=== PATIENT | female | born 1960 | race Caucasian/White ===

== ENCOUNTER 2018-09-18 21:27 | Emergency (ER) | payer BC ==
--- NOTE | 2018-09-18 22:09 | EDPHYS ---
Physician Documentation [facility] Name: Alyssa Britton Age: 58 yrs Sex: Female : 1960 Arrival Date: 09/18/2018 Time: 21:32 Bed 26 Private MD: Rozina Awad ED Physician Arben Velasquez HPI: 09/18 22:09 This 58 yrs old Female presents to ER via Ambulatory with complaints of Skin snw Sore(s). 22:09 Onset: The symptoms/episode began/occurred suddenly, 3 day(s) ago, and became worse and snw became persistent. Associated signs and symptoms: The patient has no apparent associated signs or symptoms. The patient has experienced similar episodes in the past, pt has long history of MRSA, is frightened about recurrence. Pt states she has been observing a scabbed area to left hand x 3 days, the area has become more tender, more erythematous.. It is unknown whether or not the patient has recently seen a physician. Pt takes doxycycline prophylaxis daily. Historical: - Allergies: 21:56 codeine; jd3 - Home Meds: 21:56 Doxycycline Oral [Active]; Cyclobenzaprine Oral [Active]; clopidogrel oral oral jd3 [Active]; Amitriptyline Oral [Active]; Simvastatin Oral [Active]; losartan oral oral [Active]; - PMHx: 21:56 High Cholesterol; jd3 - PSHx: 21:56 Hysterectomy; breast implants; bifemoral bipass; left leg; jd3 - Immunization history:: Adult Immunizations up to date. - Social history:: Smoking status: Patient uses tobacco products, smokes one-half pack cigarettes per day. - Ebola Screening: : Patient negative for fever greater than or equal to 101.5 degrees Fahrenheit, and additional compatible Ebola Virus Disease symptoms. ROS: 22:09 Constitutional: Negative for fever, chills, and weight loss, Eyes: Negative for injury, snw pain, redness, and discharge, ENT: Negative for injury, pain, and discharge, Neck: Negative for injury, pain, and swelling, Cardiovascular: Negative for chest pain, palpitations, and edema, Respiratory: Negative for shortness of breath, cough, wheezing, and pleuritic chest pain, Abdomen/GI: Negative for abdominal pain, nausea, vomiting, diarrhea, and constipation, Back: Negative for injury and pain, : Negative for injury, bleeding, discharge, and swelling, MS/Extremity: Negative for injury and deformity, Neuro: Negative for headache, weakness, numbness, tingling, and seizure, Psych: Negative for depression, anxiety, suicide ideation, homicidal ideation, and hallucinations. 22:09 Skin: Positive for cellulitis, of the left hand. Exam: 22:09 Constitutional: This is a well developed, well nourished patient who is awake, alert, snw and in no acute distress. Head/Face: Normocephalic, atraumatic. Eyes: Pupils equal round and reactive to light, extra-ocular motions intact. Lids and lashes normal. Conjunctiva and sclera are non-icteric and not injected. Cornea within normal limits. Periorbital areas with no swelling, redness, or edema. ENT: Nares patent. No nasal discharge, no septal abnormalities noted. Tympanic membranes are normal and external auditory canals are clear. Oropharynx with no redness, swelling, or masses, exudates, or evidence of obstruction, uvula midline. Mucous membranes moist. Neck: Trachea midline, no thyromegaly or masses palpated, and no cervical lymphadenopathy. Supple, full range of motion without nuchal rigidity, or vertebral point tenderness. No Meningismus. Chest/axilla: Normal chest wall appearance and motion. Nontender with no deformity. No lesions are appreciated. Cardiovascular: Regular rate and rhythm with a normal S1 and S2. No gallops, murmurs, or rubs. Normal PMI, no JVD. No pulse deficits. Respiratory: Lungs have equal breath sounds bilaterally, clear to auscultation and percussion. No rales, rhonchi or wheezes noted. No increased work of breathing, no retractions or nasal flaring. Abdomen/GI: Soft, non-tender, with normal bowel sounds. No distension or tympany. No guarding or rebound. No evidence of tenderness throughout. Back: No spinal tenderness. No costovertebral tenderness. Full range of motion. MS/ Extremity: Pulses equal, no cyanosis. Neurovascular intact. Full, normal range of motion. Neuro: Awake and alert, GCS 15, oriented to person, place, time, and situation. Cranial nerves II-XII grossly intact. Motor strength 5/5 in all extremities. Sensory grossly intact. Cerebellar exam normal. Normal gait. Psych: Awake, alert, with orientation to person, place and time. Behavior, mood, and affect are within normal limits. 22:09 Skin: Appearance: normal except for affected area, injury, abrasion(s), small abrasion noted, scabbed, area has become mildly erythematous, mildly tender. Vital Signs: 21:56 BP 162 / 75; Pulse 86; Resp 17 S; Temp 99.5(O); Pulse Ox 99% on R/A; Weight 54.43 kg jd3 (R); Height 5 ft. 1 in. (154.94 cm) (R); Pain 5/10; 22:23 BP 145 / 78; Pulse 80; Resp 18; Pulse Ox 100% on R/A; Pain 1/10; mg2 21:56 Body Mass Index 22.67 (54.43 kg, 154.94 cm) jd3 MDM: 21:49 Patient medically screened. snw 22:12 Data reviewed: vital signs, nurses notes. Data interpreted: Pulse oximetry: on room air snw is 99 %. Interpretation: normal. Counseling: I had a detailed discussion with the patient and/or guardian regarding: the historical points, exam findings, and any diagnostic results supporting the discharge/admit diagnosis, the presence of at least one elevated blood pressure reading (>120/80) during this emergency department visit, the need for outpatient follow up, to return to the emergency department if symptoms worsen or persist or if there are any questions or concerns that arise at home. Special discussion: Based on the history and exam findings, there is no indication for further emergent testing or inpatient evaluation. I discussed with the patient/guardian the need to see the primary care provider for further evaluation of the symptoms. Administered Medications: 22:18 Drug: Clindamycin 600 mg {Note: 2 ml on each side, Right gluteus and left gluteus.} mg2 Route: IM; Site: left gluteus; 22:18 Follow up: Response: No adverse reaction; Medication administered at discharge. mg2 Disposition: 09/19 06:58 Co-signature as Attending Physician, Arben Velasquez MD. gs Disposition: 09/18/18 22:08 Discharged to Home. Impression: Cellulitis of left upper limb - hand. - Condition is Stable. - Discharge Instructions: Cellulitis, Adult, Heat Therapy. - Prescriptions for Clindamycin HCl 300 mg Oral Capsule - take 1 capsule by ORAL route every 6 hours for 10 days; 40 capsule. - Medication Reconciliation Form, Thank You Letter, Antibiotic Education, Prescription Opioid Use form. - Follow up: Rozina Awad MD; When: 1 - 2 days; Reason: Recheck today's complaints, Continuance of care, Re-evaluation by your physician. Follow up: Emergency Department; When: As needed; Reason: Worsening of condition. Signatures: Skylar Mitchell, NGUYỄN-C LEATHER CARVER-Csnw Arben Velasquez MD MD gs Cristhian Ortiz RN RN jd3 Michael Benavidez RN RN mg2 Corrections: (The following items were deleted from the chart) 09/18 22:24 22:08 09/18/2018 22:08 Discharged to Home. Impression: Cellulitis of left upper limb - mg2 hand. Condition is Stable. Forms are Medication Reconciliation Form, Thank You Letter, Antibiotic Education, Prescription Opioid Use. Follow up: Rozina Awad; When: 1 - 2 days; Reason: Recheck today's complaints, Continuance of care, Re-evaluation by your physician. Follow up: Emergency Department; When: As needed; Reason: Worsening of condition. snw
--- NOTE | 2018-09-18 22:09 | ER ---
Nurse's Notes [facility] Name: Alyssa Britton Age: 58 yrs Sex: Female : 1960 Arrival Date: 09/18/2018 Time: 21:32 Bed 26 Private MD: Rozina Awad Diagnosis: Cellulitis of left upper limb-hand Presentation: 09/18 21:49 Presenting complaint: Patient states: "I have a sore on my left hand and I am worried jd3 it might be a staff infection.". Transition of care: patient was not received from another setting of care. Onset of symptoms was September 18, 2018. Risk Assessment: Do you want to hurt yourself or someone else? Patient reports no desire to harm self or others. Initial Sepsis Screen: Does the patient meet any 2 criteria? No. Patient's initial sepsis screen is negative. Does the patient have a suspected source of infection? No. Patient's initial sepsis screen is negative. Care prior to arrival: None. 21:49 Method Of Arrival: Ambulatory jd3 21:49 Acuity: CORNELL 3 jd3 Historical: - Allergies: 21:56 codeine; jd3 - Home Meds: 21:56 Doxycycline Oral [Active]; Cyclobenzaprine Oral [Active]; clopidogrel oral oral jd3 [Active]; Amitriptyline Oral [Active]; Simvastatin Oral [Active]; losartan oral oral [Active]; - PMHx: 21:56 High Cholesterol; jd3 - PSHx: 21:56 Hysterectomy; breast implants; bifemoral bipass; left leg; jd3 - Immunization history:: Adult Immunizations up to date. - Social history:: Smoking status: Patient uses tobacco products, smokes one-half pack cigarettes per day. - Ebola Screening: : Patient negative for fever greater than or equal to 101.5 degrees Fahrenheit, and additional compatible Ebola Virus Disease symptoms. Screenin:01 Abuse screen: Denies threats or abuse. Denies injuries from another. Nutritional mg2 screening: No deficits noted. Tuberculosis screening: No symptoms or risk factors identified. Fall Risk None identified. Assessment: 22:07 General: Appears in no apparent distress. comfortable, Behavior is calm, cooperative. mg2 Pain: Complains of pain in left hand Pain radiates to left arm Pain currently is 2 out of 10 on a pain scale. Quality of pain is described as aching, Pain began gradually, 2-3 days ago. Is intermittent. Neuro: Level of Consciousness is awake, alert, obeys commands, Oriented to person, place, time, situation. Cardiovascular: Capillary refill < 3 seconds Patient's skin is warm and dry. Respiratory: Airway is patent Respiratory effort is even, unlabored, Respiratory pattern is regular, symmetrical. GI: No signs and/or symptoms were reported involving the gastrointestinal system. : No signs and/or symptoms were reported regarding the genitourinary system. EENT: No signs and/or symptoms were reported regarding the EENT system. Derm: Skin is pink, warm \\T\\ dry. normal, Wound noted left hand Wound is open and red. Musculoskeletal: Circulation, motion, and sensation intact. Capillary refill < 3 seconds. Vital Signs: 21:56 BP 162 / 75; Pulse 86; Resp 17 S; Temp 99.5(O); Pulse Ox 99% on R/A; Weight 54.43 kg jd3 (R); Height 5 ft. 1 in. (154.94 cm) (R); Pain 5/10; 22:23 BP 145 / 78; Pulse 80; Resp 18; Pulse Ox 100% on R/A; Pain 1/10; mg2 21:56 Body Mass Index 22.67 (54.43 kg, 154.94 cm) j ED Course: 21:32 Patient arrived in ED. mr 21:32 Rozina Awad MD is Private Physician. mr 21:47 Cailin Mehta, ROSEANNA is Primary Nurse. ls4 21:49 Skylar Mitchell FNP-C is [facility]. snw 21:49 Arben Velasquez MD is Attending Physician. snw 21:50 Triage completed. jd3 21:56 Arm band placed on. jd3 22:01 No provider procedures requiring assistance completed. Patient did not have IV access mg2 during this emergency room visit. 22:08 Rozina Awad MD is Referral Physician. snw 22:08 Patient has correct armband on for positive identification. mg2 Administered Medications: 22:18 Drug: Clindamycin 600 mg {Note: 2 ml on each side, Right gluteus and left gluteus.} mg2 Route: IM; Site: left gluteus; 22:18 Follow up: Response: No adverse reaction; Medication administered at discharge. mg2 Outcome: 22:08 Discharge ordered by . shiva 22:23 Discharged to home ambulatory. mg2 22:23 Condition: stable 22:23 Discharge instructions given to patient, Instructed on discharge instructions, follow up and referral plans. medication usage, Demonstrated understanding of instructions, follow-up care, medications, Prescriptions given X 1. 22:24 Patient left the ED. mg2 Signatures: Skylar Mitchell, COTTON GINNER HELPER-C COTTON GINNER HELPER-Csnw Meera Reyna Jonathon RN RN jd3 Michael Benavidez RN RN mg2 Cailin Mehta RN RN ls4
[2018-09-18] MEDS ORDERED: CLINDAMYCIN IV 150 MG/ML (4 mL) VIAL ONE (22:23)
[2018-09-18 23:22] VITALS: TEMP 99.5
[2018-09-18 23:24] VITALS: BP 145/78; O2SAT 100
== END 2018-09-18 22:24 | disposition home or self-care (01) ==
LOC: ER 21:27
DX: L03.114 Cellulitis of left upper limb (principal); E78.00 Pure hypercholesterolemia, unspecified; Z88.5 Allergy status to narcotic agent; F17.210 Nicotine dependence, cigarettes, uncomplicated
CPT/HCPCS: 96372; 99283; S0077

== ENCOUNTER 2021-08-21 10:37 | Inpatient (IN) | payer OTHER, SELFPAY ==
--- OUTSIDE RECORDS SUMMARY | 2021-08-21 10:41 | XMS REPORT | Continuity of Care Document ---
:1960 Author Organization [facility] Address [address] [place] [address] [address] [place] [address] Care Team Providers Name Role Phone ERIKA_Edy Attending Clinician Unavailable Gina Awad Attending Clinician [phone] RICK Attending Clinician Unavailable Netta Penaloza Attending Clinician [phone] [email or web address] Attending Clinician Unavailable MIA Attending Clinician Unavailable ERIKA_Edy Admitting Clinician Unavailable [email or web address] Admitting Clinician Unavailable MIA Admitting Clinician Unavailable Payers Payer Name Policy Type Policy Number Effective Date Expiration Date [place] [id number] 2017 2021 [place] (PPO[place] 00:00:00 00:00:00 [facility] [id number] [place] [id number] 2017 00:00:00 Problems This patient has no known problems. Allergies, Adverse Reactions, Alerts This patient has no known allergies or adverse reactions. Medications This patient has no known medications. Procedures This patient has no known procedures. Encounters Start End Encounter Admission Attending Care Care Encounter Source Date/Time Date/Time Type Type Clinicians Facility Department ID 2021-08-09 2021-08-09 Outpatient KEFFER_A [facility] [id number] [place] 10:03:00 10:03:00 [facility] 2021-07-30 2021-07-30 Outpatient [facility]A [facility] [id number] [place] 05:21:00 05:21:00 [facility] 2021-06-22 2021-06-22 Outpatient [facility]A [facility] [id number] [place] 04:51:00 04:51:00 [facility] 2021-06-22 2021-06-22 Outpatient Rozina Awad [facility] [id number] 00:00:00 00:00:00 Gina [id number] 2021-04-14 2021-04-14 Outpatient [facility]A [facility] [id number] [place] 08:23:00 08:23:00 006 [facility] 2021-04-13 2021-04-13 Outpatient [facility]A [facility] [id number] [place] 06:34:00 06:34:00 005 [facility] 2021-04-13 2021-04-13 Outpatient Rozina Awad [facility] [id number] 00:00:00 00:00:00 Gina [id number] 2021-01-28 2021-01-28 Outpatient CHICO CABRERA [facility] [id number] [place] 00:00:00 00:00:[address] 2020-12-24 2020-12-24 Outpatient CHICO CABRERA [facility] [id number] [place] 00:00:00 00:00:[address] 2020-11-26 2020-11-26 Outpatient [facility]A [facility] [id number] [place] 06:25:00 06:25:00 520 [facility] 2020-11-19 2020-11-19 Outpatient KE[facility]A [facility] [id number] [place] 09:31:00 09:31:00 513 [facility] 2020-11-19 2020-11-19 Outpatient Ca [facility] [id number] 00:00:00 00:00:00 Aidan [id number] Netta [id number] 2020-10-29 2020-10-29 Outpatient CHICO CABRERA [facility] [id number] [place] 00:00:00 00:00:[address] 2020-10-28 2020-10-28 Outpatient CHICO CABRERA [facility] [id number] [place] 00:00:00 00:00:[address] 2020-10-28 2020-10-28 Outpatient CHICO CABRERA [facility] [id number] [place] 00:00:00 00:00:[address] 2020-10-28 2020-10-28 Outpatient CHICO CABRERA [facility] [id number] [place] 00:00:00 00:00:[address] 2020-10-15 2020-10-15 Outpatient [facility]_A [facility] [id number] [place] 01:02:00 01:02:00 408 [facility] 2020-10-02 2020-10-02 Outpatient [facility]A [facility] [id number] [place] 03:57:00 03:57:00 326 [facility] 2020-09-08 2020-09-08 Outpatient [facility]A [facility] [id number] [place] 12:01:00 12:01:00 [facility] 2020-08-27 2020-08-27 Outpatient [facility]A [facility] [id number] [place] 01:02:00 01:02:00 218 [facility] 2020-08-20 2020-08-20 Outpatient [facility]A [facility] [id number] [place] 09:14:00 09:14:00 211 [facility] 2020-08-20 2020-08-20 Outpatient Ca [facility] [id number] 00:00:00 00:00:00 Aidan [id number] 2020-08-05 2020-08-05 Outpatient [facility]A [facility] [id number] [place] 11:55:00 11:55:00 127 [facility] 2020-08-05 2020-08-05 Outpatient Rozina Awad [facility] [id number] 00:00:00 00:00:00 Gina [id number] 2020-08-03 2020-08-03 Outpatient [facility]_A [facility] [id number] [place] 03:52:00 03:52:00 125 [facility] 2020-07-21 2020-07-21 Outpatient [facility]A [facility] [id number] [place] 09:57:00 09:57:00 112 [facility] 2020-07-21 2020-07-21 Outpatient Ca [facility] [id number] 00:00:00 00:00:00 Aidan [id number] [place] [id number] 2020-07-04 2020-07-04 Outpatient KEFFER_A [facility] [id number] [place] 01:01:00 01:01:00 [facility] 2020-06-16 2020-06-16 Outpatient Ca [facility] [id number] 00:00:00 00:00:00 Aidan [id number] [place] [id number] 2020-05-27 2020-05-27 Outpatient kejonas_a [id number] [place] 02:34:00 02:34:00 [id number] 2020-02-11 2020-02-11 Outpatient EUSEBIA RIJEANETTE [facility] [id number] [place] 12:25:00 12:25:00 SSA [id number] da [facility] 2019-09-03 2019-09-03 Outpatient CHICO CABRERA [facility] [id number] [place] 00:00:00 00:00:[address] Results This patient has no known results.
--- NOTE | 2021-08-21 11:03 | RAD REPORT ---
EXAM DESCRIPTION: CT - Ct Stroke Brain Wo Cont - 08/21/2021 10:50 am CLINICAL HISTORY: CONFUSED COMPARISON: <Comparisons> TECHNIQUE: All CT scans are performed using dose optimization technique as appropriate and may inclu de automated exposure control or mA/KV adjustment according to patient size. FINDINGS: No intracranial hemorrhage, hydrocephalus or extra-axial fluid collection.No areas of brai n edema or evidence of midline shift. The paranasal sinuses and mastoids are clear. The calvarium is intact. IMPRESSION: No acute intracranial abnormality.
[2021-08-21 11:09] LABS: Absolute Lymphocytes (CBC) 1.8 K/uL (0.7-4.9); Hematocrit 26.4 % (36.0-45.0); Lymphocytes % 18.2 % (15.3-44.8); MPV 7.3 fL (7.6-11.3); RBC Red Blood Cell Count 3.72 M/uL (3.86-4.86)
[2021-08-21 11:19] LABS: Protime INR 1.06
[2021-08-21 11:21] LABS: Potassium 4.3 mmol/L (3.5-5.1)
--- NOTE | 2021-08-21 11:42 | RAD REPORT ---
EXAM DESCRIPTION: RAD - Chest Single View - 08/21/2021 11:15 am CLINICAL HISTORY: Possible stroke COMPARISON: CHEST SINGLE VIEW dated 07/06/2012; CHEST PA AND LAT 2 VIEW dated 02/23/2004 FINDINGS: Lines: None. Lungs: Mild basilar opacities may be accentuated by soft tissues. Pleural: No significant pleural effusions or pneumothorax. Cardiac: The heart size is within normal limits. Bones: No acute fractures. Other: Breast implants. IMPRESSION: Mild basilar opacities could reflect atelectasis and/or pneumonia.
--- NOTE | 2021-08-21 11:59 | RAD REPORT ---
EXAM DESCRIPTION: CT - Neck Angio - 08/21/2021 11:42 am CLINICAL HISTORY: poss stroke COMPARISON: No comparisons TECHNIQUE: CT angiography of the neck vessels was performed with MIPs. All CT scans are performed using dose optimization technique as appropriate and may include automated exposure control or mA/KV adjustment according to patient size. FINDINGS: A left aortic arch is identified with normal three vessel configuration of the great vesse ls. No significant flow abnormality is seen of the common carotid bilaterally. No significant stenosis is identified involving the cervical segments of both internal carotid arteri es. Normal flow is seen within both vertebral arteries. Bilateral upper lobe lung lesions. Atherosclerotic plaque at the carotid bifurcations. IMPRESSION: No significant flow abnormality of the neck vessels is identified. Upper lobe lesions, possibly neoplasm. Recommend dedicated imaging of the chest.
--- NOTE | 2021-08-21 12:02 | RAD REPORT ---
EXAM DESCRIPTION: CT - Head angio - 08/21/2021 11:42 am CLINICAL HISTORY: right sided weakness COMPARISON: Ct Stroke Brain Wo Cont dated 08/21/2021; HEAD BRAIN W O CONTRAST dated 07/06/2012 TECHNIQUE: CT angiography of the head was performed with MIPs. All CT scans are performed using dose optimization technique as appropriate and may include automated exposure control or mA/KV adjustment according to patient size. FINDINGS: Anterior circulation: No aneurysm or large vessel occlusion. No hemodynamically significant stenosis. No arteriovenous malf ormation identified. Carotid artery calcifications. Posterior circulation: No aneurysm or large vessel occlusion. No hemodynamically significant stenosis. No arteriovenous malf ormation identified. IMPRESSION: No significant flow abnormality is detected.
--- NOTE | 2021-08-21 13:18 | EDPHYS ---
Physician Documentation [facility] Name: Alyssa Britton Age: 61 yrs Sex: Female : 1960 Arrival Date: 08/21/2021 Time: 10:39 Bed 5 Private MD: Rozina Awad ED Physician Bhavesh Waldrop HPI: 08/21 11:40 This 61 yrs old Female presents to ER via Wheelchair with complaints of S/S of Possible kdr Stroke. 11:40 The patient's problem is reported as difficulty walking, falling to right, a facial kdr droop, on right, paresthesias, None, dysphasia, slurred speech, slow speech, dysphagia, Normal, syncope, visual difficulty, None, weakness, in the right upper extremity, in the right lower extremity, in the right side of face, Patient has difficulty extending below the knee on the right side. She also has mild ataxia of the right upper extremity.. Onset: The symptoms/episode began/occurred at an unknown time. Last known well was last evening. Duration: This was a single incident, The episode is continuous, the symptoms became persistent. Context: the episode(s) was witnessed, by no one, symptoms became apparent upon waking, occurred at home, occurred while the patient was asleep, at rest, Possible contributing factors include: None. The symptoms are alleviated by nothing. The symptoms are aggravated by standing, walking. Associated signs and symptoms: Pertinent positives: ataxia, weakness. Severity of symptoms: At their worst the symptoms were mild moderate just prior to arrival, in the emergency department the symptoms have improved mildly. Patient's baseline: Neuro: alert and fully oriented, Motor: no deficits, Ambulation: walks without assistance, Speech: normal for age. The patient has not experienced similar symptoms in the past. The patient has not recently seen a physician. Historical: - Allergies: 11:03 Codeine; ph 11:28 Amoxicillin; vg1 11:28 Clindamycin; vg1 - Home Meds: 11:28 Amitriptyline Oral [Active]; clopidogrel Oral [Active]; Cyclobenzaprine Oral [Active]; vg1 Doxycycline Oral [Active]; losartan Oral [Active]; Simvastatin Oral [Active]; Plavix Oral [Active]; - PMHx: 11:03 High Cholesterol; ph 11:29 Hypertensive disorder; vg1 - Immunization history:: Client reports having NOT received the Covid vaccine. - Social history:: Smoking status: Patient reports the use of cigarette tobacco products, smokes one-half pack cigarettes per day. ROS: 11:40 Constitutional: Negative for fever, chills, and weight loss, Eyes: Negative for injury, kdr pain, redness, and discharge, Neck: Negative for injury, pain, and swelling, Cardiovascular: Negative for chest pain, palpitations, and edema, Respiratory: Negative for shortness of breath, cough, wheezing, and pleuritic chest pain, Abdomen/GI: Negative for abdominal pain, nausea, vomiting, diarrhea, and constipation, Back: Negative for injury and pain, MS/Extremity: Negative for injury and deformity, Skin: Negative for injury, rash, and discoloration, Psych: Negative for depression, anxiety, suicide ideation, homicidal ideation, and hallucinations, Allergy/Immunology: Negative for hives, rash, and allergies, Endocrine: Negative for neck swelling, polydipsia, polyuria, polyphagia, and marked weight changes, Hematologic/Lymphatic: Negative for swollen nodes, abnormal bleeding, and unusual bruising. 11:40 Neuro: Positive for gait disturbance, speech changes, near syncope, weakness. Exam: 11:40 Radiologist reports: Negative kdr 11:40 Neuro: Orientation: is normal, Mentation: is normal, Cranial nerves: facial droop noted on right, Nystagmus is absent. Speech is slowed, Tongue strength is normal, deviation is absent. 13:19 Constitutional: This is a well developed, well nourished patient who is awake, alert, kdr and in no acute distress. Eyes: Pupils equal round and reactive to light, extra-ocular motions intact. Lids and lashes normal. Conjunctiva and sclera are non-icteric and not injected. Cornea within normal limits. Periorbital areas with no swelling, redness, or edema. Neck: Trachea midline, no thyromegaly or masses palpated, and no cervical lymphadenopathy. Supple, full range of motion without nuchal rigidity, or vertebral point tenderness. No Meningismus. Chest/axilla: Normal chest wall appearance and motion. Nontender with no deformity. No lesions are appreciated. Cardiovascular: Regular rate and rhythm with a normal S1 and S2. No gallops, murmurs, or rubs. Normal PMI, no JVD. No pulse deficits. Respiratory: Lungs have equal breath sounds bilaterally, clear to auscultation and percussion. No rales, rhonchi or wheezes noted. No increased work of breathing, no retractions or nasal flaring. Abdomen/GI: Soft, non-tender, with normal bowel sounds. No distension or tympany. No guarding or rebound. No evidence of tenderness throughout. Back: No spinal tenderness. No costovertebral tenderness. Full range of motion. Skin: Warm, dry with normal turgor. Normal color with no rashes, no lesions, and no evidence of cellulitis. MS/ Extremity: Pulses equal, no cyanosis. Neurovascular intact. Full, normal range of motion. Psych: Awake, alert, with orientation to person, place and time. Behavior, mood, and affect are within normal limits. 13:19 Head/face: Noted is Left facial. Vital Signs: 10:43 BP 129 / 70; Pulse 88; Resp 18; Temp 97.4; Pulse Ox 100% on R/A; Weight 52.16 kg; ph Height 5 ft. 1 in. (154.94 cm); 11:15 BP 128 / 68; Pulse 80; Resp 20; Pulse Ox 100% ; vg1 12:30 BP 128 / 85; Pulse 80; Resp 15; Pulse Ox 100% ; vg1 10:43 Body Mass Index 21.73 (52.16 kg, 154.94 cm) ph NIH Stroke Scale Scores: 11:09 NIHSS Score: 6 kdr 11:14 NIHSS Score: 7 vg1 MDM: 10:54 ED course: The patient's last known well was last night prior to going to bed. She woke kdr with the current symptoms at about 9:00 this morning.. 11:40 Data reviewed: vital signs, nurses notes, lab test result(s), radiologic studies. kdr Counseling: I had a detailed discussion with the patient and/or guardian regarding: the historical points, exam findings, and any diagnostic results supporting the discharge/admit diagnosis, lab results, radiology results, the need for further work-up and treatment in the hospital. 13:17 Patient medically screened. kdr 13:18 ED course: I discussed the case with Dr. Holliday. He suggested that the patient should kdr get a CT angiogram of the head and neck. Should that show a blockage, the patient should be transferred elsewhere. If there were no flow or abnormalities, the patient could stay here for further management and treatment. In fact the CT scan did not show any flow abnormalities the patient was admitted in stable condition. 08/21 10:44 Order name: Basic Metabolic Panel; Complete Time: 13:14 kdr 08/21 10:44 Order name: CBC with Diff; Complete Time: 13:14 kdr 08/21 10:44 Order name: Protime (+inr); Complete Time: 13:14 kdr 08/21 10:44 Order name: Ptt, Activated; Complete Time: 13: kdr 08/21 13:41 Order name: SARS-COV-2 RT PCR (Document "Date of Onset" if Symptomatic) eb 08/21 15:16 Order name: SARS-COV-2 RT PCR EDTN 08/21 10:44 Order name: CT Stroke Brain w/o Contrast; Complete Time: 11:13 kdr 08/21 10:44 Order name: Stroke CXR 1 View; Complete Time: 13:14 [facility] 08/21 10:44 Order name: EKG; Complete Time: 10:44 kdr 08/21 10:44 Order name: Accucheck; Complete Time: :58 kdr 08/21 10:44 Order name: Cardiac monitoring; Complete Time: :58 kdr 08/21 10:44 Order name: EKG - Nurse/Tech; Complete Time: :58 [facility] 08/21 11:20 Order name: CT Head Angio; Complete Time: 13: kdr 08/21 11:35 Order name: Neck Angio; Complete Time: 13:14 EDTN 08/21 10:44 Order name: IV Saline Lock; Complete Time: [facility] 08/21 10:44 Order name: Labs collected and sent; Complete Time: kdr 08/21 10:44 Order name: NPO; Complete Time: :58 kdr 08/21 10:44 Order name: O2 Per Protocol; Complete Time: :58 kdr 08/21 10:44 Order name: O2 Sat Monitoring; Complete Time: :58 [facility] 08/21 10:44 Order name: Stroke Swallow Screen; Complete Time: 11:25 kdr Administered Medications: No medications were administered Point of Care Testing: Blood Glucose: 11:30 Blood Glucose: 120 mg/dL; vg1 Ranges: Critical Glucose Levels:Adult <50 mg/dl or >400 mg/dl <40 mg/dl or >180 mg/dl Disposition Summary: 08/21/21 13:17 Hospitalization Ordered Hospitalization Status: Inpatient Admission kdr Provider: Dong Ellington Location: Telemetry/MedSurg (Inpatient) kdr Condition: Fair kdr Problem: new kdr Symptoms: have improved kdr Bed/Room Type: Standard [facility] Room Assignment: 211(08/21/21 15:44) dw Diagnosis - Acute stroke, nonhemorrhagic kdr Forms: - Medication Reconciliation Form kdr - SBAR form kdr NIH Stroke Scale - NIH Stroke Score Date: 08/21/2021 Time: 11:09 Total Score = 6 1a. Level of Consciousness (LOC) - 0(Alert) 1b. Level of Consciousness (LOC) (Month \\T\\ Age) - 0(Both) 1c. LOC Commands (Open \\T\\ Closes Eyes/Direct Support Professional Caregiver) - 0(Both) 2. Best Gaze (Lateral Gaze Paresis) - 0(Normal) 3. Visual Field Loss - 0(No visual loss) 4. Facial Palsy - 1(Minor Paralysis) 5a. Left Arm: Motor (10-second hold) - 0(No drift) 5b. Right Arm: Motor (10-second hold) - 0(No drift) 6a. Left Leg: Motor (5-second hold - always test supine) - 0(No drift) 6b. Right Leg: Motor (5-second hold - always test supine) - 2(Drift, some effort against gravity) 7. Limb Ataxia (finger/nose \\T\\ heel/reyna - test with eyes open) - 1(Present in one limb) 8. Sensory Loss (pinprick arms/legs/face) - 0(Normal) 9. Best Language: Aphasia (description/naming/reading) - 1(Mild to moderate aphasia) 10. Dysarthria (speech clarity - read or repeat words) - 1(Mild to Moderate) 11. Extinction and Inattention (visual/tactile/auditory/spatial/personal) - 0(No abnormality) Initials: [facility] NIH Stroke Scale - NIH Stroke Score Date: 08/21/2021 Time: 11:14 Total Score = 7 1a. Level of Consciousness (LOC) - 0(Alert) 1b. Level of Consciousness (LOC) (Month \\T\\ Age) - 0(Both) 1c. LOC Commands (Open \\T\\ Closes Eyes/Direct Support Professional Caregiver) - 0(Both) 2. Best Gaze (Lateral Gaze Paresis) - 0(Normal) 3. Visual Field Loss - 0(No visual loss) 4. Facial Palsy - 1(Minor Paralysis) 5a. Left Arm: Motor (10-second hold) - 0(No drift) 5b. Right Arm: Motor (10-second hold) - 2(Drift, some effort against gravity) 6a. Left Leg: Motor (5-second hold - always test supine) - 0(No drift) 6b. Right Leg: Motor (5-second hold - always test supine) - 2(Drift, some effort against gravity) 7. Limb Ataxia (finger/nose \\T\\ heel/reyna - test with eyes open) - 1(Present in one limb) 8. Sensory Loss (pinprick arms/legs/face) - 0(Normal) 9. Best Language: Aphasia (description/naming/reading) - 0(No aphasia) 10. Dysarthria (speech clarity - read or repeat words) - 1(Mild to Moderate) 11. Extinction and Inattention (visual/tactile/auditory/spatial/personal) - 0(No abnormality) Initials: vg1 Signatures: Dispatcher [employer] Suni Hatfield RN RN dw Bhavesh Waldrop MD MD kdr Hall, Patricia, RN RN Naya Roque RN RN vg1 Corrections: (The following items were deleted from the chart) 15:44 13:17 [facility] dw
--- NOTE | 2021-08-21 13:18 | ER ---
Nurse's Notes [facility] Name: Alyssa Britton Age: 61 yrs Sex: Female : 1960 Arrival Date: 08/21/2021 Time: 10:39 Bed 5 Private MD: Rozina Awad Diagnosis: Acute stroke, nonhemorrhagic Presentation: 08/21 10:43 Chief complaint: Patient states: Difficulty walking, R sided weakness and confusion ph that started upon waking this morning. Last known normal last night before bed. 11:02 Coronavirus screen: At this time, the client does not indicate any symptoms associated ph with coronavirus-19. Ebola Screen: No symptoms or risks identified at this time. No acute neurological deficit is noted. Pre-hospital glucose is not applicable to this patient. Initial Sepsis Screen: Does the patient meet any 2 criteria? No. Patient's initial sepsis screen is negative. Does the patient have a suspected source of infection? No. Patient's initial sepsis screen is negative. Risk Assessment: Do you want to hurt yourself or someone else? Patient reports no desire to harm self or others. Onset of symptoms was August 21, 2021. 11:02 Method Of Arrival: Wheelchair ph 11:02 Acuity: CORNELL 2 ph Triage Assessment: 11:27 The onset of the patients symptoms was August 21, 2021 at 09:00. vg1 Stroke Activation: Symptom onset > 6 hours Physician: Stroke Attending; Name: ; Notified At: ; Arrived At: Physician: Chief Stroke Resident; Name: ; Notified At: ; Arrived At: Physician: Stroke Resident; Name: ; Notified At: ; Arrived At: Physician: ED Attending; Name: ; Notified At: ; Arrived At: Physician: ED Resident; Name: ; Notified At: ; Arrived At: Historical: - Allergies: 11:03 Codeine; ph 11:28 Amoxicillin; vg1 11:28 Clindamycin; vg1 - Home Meds: 11:28 Amitriptyline Oral [Active]; clopidogrel Oral [Active]; Cyclobenzaprine Oral [Active]; vg1 Doxycycline Oral [Active]; losartan Oral [Active]; Simvastatin Oral [Active]; Plavix Oral [Active]; - PMHx: 11:03 High Cholesterol; ph 11:29 Hypertensive disorder; vg1 - Immunization history:: Client reports having NOT received the Covid vaccine. - Social history:: Smoking status: Patient reports the use of cigarette tobacco products, smokes one-half pack cigarettes per day. Screenin:27 Abuse screen: Denies threats or abuse. Nutritional screening: No deficits noted. vg1 Tuberculosis screening: No symptoms or risk factors identified. Fall Risk No fall in past 12 months (0 pts). No secondary diagnosis (0 pts). IV access (20 points). Ambulatory Aid- None/Bed Rest/Nurse Assist (0 pts). Gait- Weak (10 pts.). Mental Status- Oriented to own ability (0 pts). Total Fishman Fall Scale indicates Low Risk Score (25-44 pts). Fall prevention measures have been instituted. Side Rails Up X 2 Placed close to Nursing Station Family Present and informed to notify staff if they need to leave bedside. Assessment: 11:14 VAN Scoring: Arm Drift: Minor drift Visual Disturbance: No visual disturbance noted. vg1 Aphasia: No aphasia noted. Neglect: No neglect noted. The patient has not been NPO before screening. The patient is alert, and able to follow commands. The patient exhibits slurred or garbled speech. states 'she doesn't sound right'. The patient is not exhibiting difficulty speaking. The patient does not exhibit difficulty understanding words. The patient is able to swallow own secretions with no drooling or need for suction. Patient tolerated one teaspoon of water. No drooling, immediate coughing, gurgling, or clearing of the throat was noted. The patient tolerated 90mL of water. No drooling, immediate coughing, gurgling, or clearing of the throat was noted. The patient passed the bedside swallow screening. Oral medications may be given as ordered. Contact Physician for further diet orders. Provider notified of bedside swallow screening results: Bhavesh Waldrop MD. T-PA (Activase) Screening:. General: Appears in no apparent distress. uncomfortable, Behavior is calm, cooperative. Pain: Denies pain. Neuro: Level of Consciousness is awake, alert, obeys commands, Oriented to person, place, time, situation, Wood Repatcher are weak on right Moves all extremities. Gait is unsteady, Speech is slurred, Facial droop on right, Reports weakness in right arm and right leg. Cardiovascular: Patient's skin is warm and dry. Respiratory: Airway is patent Respiratory effort is even, unlabored. GI: No signs and/or symptoms were reported involving the gastrointestinal system. : No signs and/or symptoms were reported regarding the genitourinary system. EENT: No signs and/or symptoms were reported regarding the EENT system. Derm: Skin is intact, Skin is pink, warm \T\ dry. Musculoskeletal: Reports weakness in right arm and right leg. 12:35 Reassessment: Patient appears in no apparent distress at this time. Patient and/or vg1 family updated on plan of care and expected duration. Pain level reassessed. Patient is alert, oriented x 3, equal unlabored respirations, skin warm/dry/pink. 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 Provider notified. Patient denies pain at this time. 13:40 Reassessment: Patient appears in no apparent distress at this time. Patient and/or vg1 family updated on plan of care and expected duration. Pain level reassessed. Patient is alert, oriented x 3, equal unlabored respirations, skin warm/dry/pink. Patient denies pain at this time. Vital Signs: 10:43 BP 129 / 70; Pulse 88; Resp 18; Temp 97.4; Pulse Ox 100% on R/A; Weight 52.16 kg; ph Height 5 ft. 1 in. (154.94 cm); 11:15 BP 128 / 68; Pulse 80; Resp 20; Pulse Ox 100% ; vg1 12:30 BP 128 / 85; Pulse 80; Resp 15; Pulse Ox 100% ; vg1 10:43 Body Mass Index 21.73 (52.16 kg, 154.94 cm) ph NIH Stroke Scale Scores: 11:09 NIHSS Score: 6 kdr 11:14 NIHSS Score: 7 vg1 ED Course: 10:39 Patient arrived in ED. mr 10:39 Rozina Awad MD is Private Physician. mr 10:39 Bhavesh Waldrop MD is Attending Physician. kdr 10:44 Suni Bermudez, RN is Primary Nurse. dw 10:50 CT Stroke Brain w/o Contrast In Process Unspecified. EDMS 10:58 Primary Nurse role handed off by Suni Bermudez, RN vg1 10:58 Naya Le, RN is Primary Nurse. vg1 10:59 Initial lab(s) drawn, by al, sent to lab. Inserted saline lock: 20 gauge in right vg1 antecubital area, using aseptic technique. Blood collected. 11:03 Triage completed. ph 11:03 Ptt, Activated Sent. 5 11:03 Protime (+inr) Sent. 5 11:03 CBC with Diff Sent. 5 11:03 Basic Metabolic Panel Sent. 5 11:03 Arm band placed on Patient placed in an exam room. ph 11:04 EKG done, by ED staff, reviewed by Bhavesh Waldrop MD. mh5 11:15 Stroke CXR 1 View In Process Unspecified. EDMS 11:27 Patient has correct armband on for positive identification. Placed in gown. Bed in low vg1 position. Call light in reach. Side rails up X2. Adult w/ patient. 11:42 CT Head Angio In Process Unspecified. EDMS 11:42 Neck Angio In Process Unspecified. EDMS 13:16 Dong Ellington is Hospitalizing Provider. kdr 13:49 COVID swab sent to lab. vg1 16:23 No provider procedures requiring assistance completed. Patient admitted, IV remains in vg1 place. Administered Medications: No medications were administered Point of Care Testing: Blood Glucose: 11:30 Blood Glucose: 120 mg/dL; vg1 Ranges: Outcome: 13:17 Decision to Hospitalize by Provider. kdr 16:23 Admitted to Tele accompanied by murphy, via wheelchair, room 211, with chart, Report vg1 called to Aranza CONDON 16:23 Condition: good 16:23 Instructed on the need for admit. 16:33 Patient left the ED. vg1 NIH Stroke Scale - NIH Stroke Score Date: 08/21/2021 Time: 11:09 Total Score = 6 1a. Level of Consciousness (LOC) - 0(Alert) 1b. Level of Consciousness (LOC) (Month \T\ Age) - 0(Both) 1c. LOC Commands (Open \T\ Closes Eyes/Training Generalist) - 0(Both) 2. Best Gaze (Lateral Gaze Paresis) - 0(Normal) 3. Visual Field Loss - 0(No visual loss) 4. Facial Palsy - 1(Minor Paralysis) 5a. Left Arm: Motor (10-second hold) - 0(No drift) 5b. Right Arm: Motor (10-second hold) - 0(No drift) 6a. Left Leg: Motor (5-second hold - always test supine) - 0(No drift) 6b. Right Leg: Motor (5-second hold - always test supine) - 2(Drift, some effort against gravity) 7. Limb Ataxia (finger/nose \T\ heel/reyna - test with eyes open) - 1(Present in one limb) 8. Sensory Loss (pinprick arms/legs/face) - 0(Normal) 9. Best Language: Aphasia (description/naming/reading) - 1(Mild to moderate aphasia) 10. Dysarthria (speech clarity - read or repeat words) - 1(Mild to Moderate) 11. Extinction and Inattention (visual/tactile/auditory/spatial/personal) - 0(No abnormality) Initials: [facility] NIH Stroke Scale - NIH Stroke Score Date: 08/21/2021 Time: 11:14 Total Score = 7 1a. Level of Consciousness (LOC) - 0(Alert) 1b. Level of Consciousness (LOC) (Month \T\ Age) - 0(Both) 1c. LOC Commands (Open \T\ Closes Eyes/Training Generalist) - 0(Both) 2. Best Gaze (Lateral Gaze Paresis) - 0(Normal) 3. Visual Field Loss - 0(No visual loss) 4. Facial Palsy - 1(Minor Paralysis) 5a. Left Arm: Motor (10-second hold) - 0(No drift) 5b. Right Arm: Motor (10-second hold) - 2(Drift, some effort against gravity) 6a. Left Leg: Motor (5-second hold - always test supine) - 0(No drift) 6b. Right Leg: Motor (5-second hold - always test supine) - 2(Drift, some effort against gravity) 7. Limb Ataxia (finger/nose \T\ heel/reyna - test with eyes open) - 1(Present in one limb) 8. Sensory Loss (pinprick arms/legs/face) - 0(Normal) 9. Best Language: Aphasia (description/naming/reading) - 0(No aphasia) 10. Dysarthria (speech clarity - read or repeat words) - 1(Mild to Moderate) 11. Extinction and Inattention (visual/tactile/auditory/spatial/personal) - 0(No abnormality) Initials: vg1 Signatures: Dispatcher [employer] Suni Hatfield RN RN dw Rittger, Kevin, MD MD kdr Axel, Meera mr Mike, Kenia, RN RN [facility], Far[facility] Rey, ROSEANNA Person RN vg1
--- NOTE | 2021-08-21 13:50 | P.HP ---
Certification for Inpatient Patient admitted to: Inpatient With expected LOS: >2 Midnights Practitioner: I am a practitioner with admitting privileges, knowledge of patient current condition, hospital course, and medical plan of care. Services: Services provided to patient in accordance with Admission requirements found in Title 42 Section 412.3 of the Code of Federal Regulations Patient History Date of Service: 08/21/21 Reason for admission: Right facial droop History of Present Illness: 61-year-old woman with a history of peripheral vascular disease status post iliac bypass surgery, history of hypercholesterolemia, current smoker presented to the emergency department with a complaint of sudden onset of clumsiness in her right hand and right facial droop. Spouse also reported transient confusion and difficulty in walking. Stroke protocol initiated in the ED, head CT negative for acute stroke, CTA head and neck unremarkable with no significant vessel occlusion. Neurology-Dr. Holliday was contacted by the ED provider recommended admission here for medical management. 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 Blood work shows anemia with hemoglobin of 8.0 and CKD with a creatinine of 1.5. Patient hospitalized for further management. Allergies codeine [Codeine] Allergy (Verified 07/06/12 12:18) CHILDHOOD ALLERGY Home Medications: Aspirin [Aspirin EC] 81 mg PO DAILY #0 tablet. 07/07/12 Zeal PO DAILY 07/07/12 - Past Medical/Surgical History Diabetic: No -: Hyperlipidemia -: Peripheral vascular disease -: Hypertension -: Ilial-femoral bypass - Social History Smoking Status: Current every day smoker Alcohol use: Yes CD- Drugs: No Caffeine use: Yes Place of Residence: Home Review of Systems Other: Patient reports nonproductive cough, denies any fever, denies any chest pain. Except as documented, all other systems reviewed and negative. Physical Examination - Physical Exam General: Alert, In no apparent distress, Oriented x3 HEENT: Mucous membr. moist/pink Neck: JVD not distended Respiratory: Clear to auscultation bilaterally, Normal air movement Cardiovascular: No edema, Regular rate/rhythm, Normal S1 S2, No murmurs Capillary refill: <2 Seconds Gastrointestinal: Normal bowel sounds, Soft and benign, Non-distended, No tenderness Musculoskeletal: No swelling, No tenderness Integumentary: No rashes, No erythema, No cyanosis Neurological: Normal speech, Other Lymphatics: No axilla or inguinal lymphadenopathy - Studies Laboratory Data (last 24 hrs) 08/21/21 10:56: PT 12.2, INR 1.06, APTT 27.6 08/21/21 10:56: WBC 9.90, Hgb 8.2 L, Hct 26.4 L, Plt Count 310 08/21/21 10:56: Sodium 138, Potassium 4.3, BUN 22 H, Creatinine 1.50 H, Glucose 120 H Assessment and Plan - Problems (Diagnosis) (1) Acute CVA (cerebrovascular accident) Current Visit: Yes Status: Acute (2) Peripheral vascular disease Current Visit: Yes Status: Acute (3) Hypertension Current Visit: Yes Status: Acute (4) Hyperlipidemia Current Visit: Yes Status: Acute (5) Tobacco use Current Visit: Yes Status: Acute - Plan Admit patient to the medical floor. Stroke protocol initiated. Patient on Plavix for peripheral vascular disease. We will add aspirin. Lipitor Folic acid Obtain echocardiogram Obtain MRI of the brain Check lipid profile Smoking cessation advised. Speech consult for swallow and speech. PT consult. DVT prophylaxis with Lovenox. Consult to neurology. - Advance Directives Does patient have a Living Will: No Does patient have a Durable POA for Healthcare: No
[2021-08-21] MEDS ORDERED: ONDANSETRON 4 MG/2 ML VIAL IV PRN (14:13)
[2021-08-21] MEDS ORDERED: ACETAMINOPHEN 500 MG TAB PO PRN (14:13)
[2021-08-21] MEDS: NA CHLORIDE 0.9% 1,000 ML IV SCH (14:13)
[2021-08-21 19:50] VITALS: BMI 21.7
[2021-08-21] MEDS: ATORVASTATIN 20 MG TAB PO SCH (20:52)
[2021-08-22] MEDS ORDERED: NA CHLORIDE 0.9% 1,000 ML ONE (02:57)
[2021-08-22] MEDS: NA CHLORIDE 0.9% 1,000 ML IV SCH (03:33)
[2021-08-22 06:15] LABS: Protime INR 1.14
[2021-08-22 06:24] LABS: Absolute Lymphocytes (CBC) 1.5 K/uL (0.7-4.9); Lymphocytes % 15.8 % (15.3-44.8); MPV 7.3 fL (7.6-11.3); RBC Red Blood Cell Count 3.19 M/uL (3.86-4.86)
[2021-08-22 06:48] LABS: Magnesium 2.2 mg/dL (1.8-2.4); Phosphorus 2.5 mg/dL (2.5-4.9); Thyroid Stimulating Hormone 1.76 uIU/mL (0.360-3.740)
[2021-08-22] MEDS ORDERED: PNEUMOCOCCAL VACCINE 0.5 ML IMVAC ONE (09:00)
[2021-08-22] MEDS ORDERED: ASPIRIN EC 81 MG TAB PO SCH (09:00)
[2021-08-22] MEDS: ENOXAPARIN 40 MG/0.4 ML SQ SCH (09:32)
[2021-08-22] MEDS: CLOPIDOGREL 75 MG TABLET PO SCH (09:32)
[2021-08-22] MEDS: FOLIC ACID 1 MG TABLET PO SCH (09:32)
[2021-08-22] MEDS: ASPIRIN EC 81 MG TAB PO SCH (09:32)
--- NOTE | 2021-08-22 13:02 | P.PN ---
Subjective Date of Service: 08/22/21 Chief Complaint: Right facial droop No change in neurologic symptom. She still has mild right facial droop and reports some numbness on the right side of the lips. She passed bedside swallow evaluation. Physical Examination - Vital Signs Temperature: 96.9 F Blood Pressure: 137/67 Pulse: 88 Respirations: 18 Pulse Ox (%): 99 - Physical Exam General: Alert, In no apparent distress, Oriented x3 HEENT: Mucous membr. moist/pink Neck: Supple, JVD not distended Respiratory: Clear to auscultation bilaterally, Normal air movement Cardiovascular: No edema, Regular rate/rhythm, Normal S1 S2, No murmurs Gastrointestinal: Normal bowel sounds, Soft and benign, Non-distended, No tenderness Musculoskeletal: No swelling, No tenderness Integumentary: No rashes, No erythema Neurological: Normal speech, Normal strength at 5/5 x4 extr, Other (Mild right facial droop) Assessment And Plan - Current Problems (Diagnosis) (1) Acute CVA (cerebrovascular accident) Current Visit: Yes Status: Acute (2) Peripheral vascular disease Current Visit: Yes Status: Acute (3) Hypertension Current Visit: Yes Status: Acute (4) Hyperlipidemia Current Visit: Yes Status: Acute (5) Tobacco use Current Visit: Yes Status: Acute - Plan Continue aspirin and Plavix. Continue Lipitor and Folic acid echocardiogram and MRI are pending to be done tomorrow LDL within target. Speech consult for swallow and speech. PT and OT to evaluate. DVT prophylaxis with Lovenox. Neurology consulted.
[2021-08-22] MEDS: ATORVASTATIN 20 MG TAB PO SCH (21:23)
[2021-08-23] MEDS: NA CHLORIDE 0.9% 1,000 ML IV SCH (05:39)
[2021-08-23 06:40] LABS: Magnesium 2.2 mg/dL (1.8-2.4); Potassium 3.9 mmol/L (3.5-5.1)
--- NOTE | 2021-08-23 08:45 | RAD REPORT ---
EXAM DESCRIPTION: MRI - Brain W/Wo Cont - 08/23/2021 8:11 am CLINICAL HISTORY: Acute CVA COMPARISON: MRA Head Wo Cont dated 08/23/2021; Brain W/Wo Cont dated 05/15/2019; MRA Neck W/Wo Cont da trisha 08/23/2021; Ct Stroke Brain Wo Cont dated 08/21/2021; Head angio dated 08/21/2021; Neck Angio dated 08/21/2021 TECHNIQUE: Sagittal T1-weighted images were obtained along with PD/heavily T2-weighted and T2-FLAIR images. Axial DWI and ADC mapping sequences were also obtained along with coronal heavily T2-weighted images were obtained. FINDINGS: Multiple foci of acute infarct in the left basal ganglia, left insula, and left caudate he ad. Small focus of high intensity in the right fonseca radiata near the frontal horn is favored to rep resent T2 shine through. There is subtle enhancement of the left caudate head. No other abnormal area s of enhancement. T2 signal abnormality is noted at these locations on the left side. No mass effect or midline shift. Mastoid air cells and paranasal sinuses are clear. IMPRESSION: Multiple small foci of acute infarct in the left basal ganglia. Mild enhancement in the left caudate head is more typical of a subacute infarct. The remaining infarcts are acute.
--- NOTE | 2021-08-23 08:47 | RAD REPORT ---
EXAM DESCRIPTION: MRI - MRA Neck W/Wo Cont - 08/23/2021 8:11 am CLINICAL HISTORY: Acute CVA COMPARISON: No comparisons FINDINGS: Contrast enhance 2D [id number] MR angiography of the neck vessels was performed. Two vessel aortic arch. No flow limiting stenosis involving either carotid systems or the bilateral v ertebral arteries. IMPRESSION: No flow limiting stenosis within the neck.
--- NOTE | 2021-08-23 08:54 | RAD REPORT ---
EXAM DESCRIPTION: MRI - MRA Head Wo Cont - 08/23/2021 8:11 am CLINICAL HISTORY: Acute CVA CVA COMPARISON: Brain W/Wo Cont dated 05/15/2019; Head angio dated 08/21/2021 FINDINGS: 3D noncontrast [id number] MR angiography of the [place] was performed. Left distal M2 MCA occlusion. No other occlusion is identified. No aneurysm. No arteriovenous malform ation. Left dominant vertebral artery. The visualized dural venous sinuses appear patent. IMPRESSION: Distal left M2 segment MCA occlusion. This corresponds with the area of infarct on the M RI.
[2021-08-23] MEDS ORDERED: POTASSIUM CL SA 10 MEQ TAB PO ONE (09:00)
[2021-08-23] MEDS: CLOPIDOGREL 75 MG TABLET PO SCH (09:40)
[2021-08-23] MEDS: ASPIRIN EC 81 MG TAB PO SCH (09:40)
[2021-08-23] MEDS: ENOXAPARIN 40 MG/0.4 ML SQ SCH (09:40)
[2021-08-23] MEDS: FOLIC ACID 1 MG TABLET PO SCH (09:40)
[2021-08-23] MEDS ORDERED: AMLODIPINE 5 MG TAB PO ONE (12:28)
[2021-08-23] MEDS ORDERED: LOSARTAN POTASSIUM 50 MG TABLET PO ONE (12:29)
[2021-08-23 12:47] VITALS: BP 180/77
[2021-08-23 12:50] VITALS: TEMP 97.2
[2021-08-23 13:01] VITALS: O2SAT 96
--- NOTE | 2021-08-23 14:10 | P.DS ---
Admission Date: 08/21/21 Discharge Date: 08/23/21 Disposition: ROUTINE DISCHARGE Discharge Condition: FAIR Reason for Admission: Right facial droop - Problems (1) Acute CVA (cerebrovascular accident) Status: Acute (2) Peripheral vascular disease Status: Acute (3) Hypertension Status: Acute (4) Hyperlipidemia Status: Acute (5) Tobacco use Status: Acute Brief History of Present Illness: 61-year-old woman with a history of peripheral vascular disease status post iliac bypass surgery, history of hypercholesterolemia, current smoker presented to the emergency department with a complaint of sudden onset of clumsiness in her right hand and right facial droop. Spouse also reported transient confusion and difficulty in walking. Stroke protocol initiated in the ED, head CT negative for acute stroke, CTA head and neck unremarkable with no significant vessel occlusion. Neurology-Dr. Holliday was contacted by the ED provider recommended admission here for medical management. 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 Blood work shows anemia with hemoglobin of 8.0 and CKD with a creatinine of 1.5. Patient hospitalized for further management. Hospital Course: Patient admitted to the medical floor and started on aspirin and Plavix. MRI of the brain done demonstrated small foci of acute infarct in the basal ganglia. Patient had right facial droop which improved during the hospital stay. She also had right hand clumsiness which also improved. LDL was within target. Echocardiogram done and the result is pending. There has been some neurologic improvement. She has no trouble with swallowing or speech or gait. Patient is discharged with aspirin and Plavix. She is informed to continue dual platelet therapy for at least 1 month. Vital Signs/Physical Exam: Temp Pulse Resp BP Pulse Ox 97.2 F 80 18 180/77 H 96 08/23/21 12:00 08/23/21 12:00 08/23/21 12:00 08/23/21 12:46 08/23/21 12:00 General: Alert, In no apparent distress HEENT: Mucous membr. moist/pink Neck: JVD not distended Respiratory: Clear to auscultation bilaterally, Normal air movement Cardiovascular: No edema, Regular rate/rhythm, Normal S1 S2 Gastrointestinal: Soft and benign, Non-distended, No tenderness Musculoskeletal: No swelling Integumentary: No rashes Neurological: Normal speech, Normal strength at 5/5 x4 extr, Other (Mild right facial droop) Laboratory Data at Discharge: WBC 9.70 K/uL (4.3-10.9) 08/22/21 05:50 Hgb 7.2 g/dL (12.0-15.0) L 08/22/21 05:50 Hct 23.0 % (36.0-45.0) L 08/22/21 05:50 Plt Count 301 K/uL (152-406) 08/22/21 05:50 PT 13.1 SECONDS (9.5-12.5) H 08/22/21 05:50 INR 1.14 08/22/21 05:50 APTT 27.6 SECONDS (24.3-36.9) 08/21/21 10:56 Sodium 140 mmol/L (136-145) 08/22/21 05:50 Potassium 3.9 mmol/L (3.5-5.1) 08/23/21 05:59 BUN 17 mg/dL (7-18) 08/22/21 05:50 Creatinine 1.07 mg/dL (0.55-1.3) 08/22/21 05:50 Glucose 79 mg/dL (74-106) 08/22/21 05:50 Phosphorus 2.5 mg/dL (2.5-4.9) 08/22/21 05:50 Magnesium 2.2 mg/dL (1.8-2.4) 08/23/21 05:59 Triglycerides 145 mg/dL (<150) 08/22/21 05:50 Cholesterol 136 mg/dL (<200) 08/22/21 05:50 HDL Cholesterol 46 mg/dL (40-60) 08/22/21 05:50 Cholesterol/HDL Ratio 2.96 08/22/21 05:50 Home Medications: Amitriptyline [Elavil*] 25 mg PO BEDTIME 08/21/21 Amlodipine [Norvasc*] 5 mg PO DAILY 08/21/21 Cholecalciferol (Vitamin D3) [Vitamin D3] 50,000 unit PO EVERY 7TH DAY 08/21/21 Clopidogrel Bisulfate [Plavix] 75 mg PO DAILY 08/21/21 Cyclobenzaprine [Flexeril*] 10 mg PO DAILY 08/21/21 Losartan Potassium 25 mg PO DAILY 08/21/21 Pantoprazole [Protonix Tab*] 40 mg PO DAILY 08/21/21 Simvastatin 40 mg PO DAILY 08/21/21 Aspirin [Aspirin EC] 81 mg PO DAILY #30 tablet. 08/23/21 Folic Acid 1 mg PO DAILY #30 tablet 08/23/21 New Medications: Aspirin [Aspirin EC] 81 mg PO DAILY #30 tablet. Folic Acid 1 mg PO DAILY #30 tablet Diet: AHA Activity: Ad bhavesh Followup: Francis Holliday MD [ASSOCIATE-ACTIVE - CAN ADMIT] - Rozina Awad MD [Primary Care Provider] - 1 Week Time spent managing pt's care (in minutes): 36
--- NOTE | 2021-08-23 14:21 | ECHO ---
HEIGHT: 5 ft 1 in WEIGHT: 115 lb 0 oz DATE OF STUDY: 08/23/[address]: elsa lópez 2-DIMENSIONAL: YES M.MODE: YES DOPPLER: YES COLOR FLOW: YES TDS: NO PORTABLE: NO DEFINITY: NO BUBBLE STUDY: NO DIAGNOSIS: STROKE CARDIAC HISTORY: CATHERIZATION: SURGERY: PROSTHETIC VALVE: PACEMAKER: MEASUREMENTS (cm) DIASTOLIC (NORMALS) SYSTOLIC (NORMALS) IVSd 0.8 (0.6-1.2) LA Diam 3.0 (1.9-4.0) LVEF 55-60% LVIDd 3.9 (3.5-5.7) LVIDs 2.9 (2.0-3.5) %FS 26% LVPWd 0.8 (0.6-1.2) Ao Diam 2.4 (2.0-3.7) 2 DIMENSIONAL ASSESSMENT: RIGHT ATRIUM: NORMAL LEFT ATRIUM: NORMAL RIGHT VENTRICLE: NORMAL LEFT VENTRICLE: NORMAL TRICUSPID VALVE: NORMAL MITRAL VALVE: NORMAL PULMONIC VALVE: NORMAL AORTIC VALVE: NORMAL PERICARDIAL EFFUSION: TRACE AORTIC ROOT: NORMAL LEFT VENTRICULAR WALL MOTION: NORMAL. DOPPLER/COLOR FLOW: MILD TRICUSPID REGURGITATION, MILD MITRAL REGURGITATION. MILD AORTIC REGURGITATION. COMMENTS: NORMAL LEFT VENTRICULAR EJECTION FRACTION 55-60% WITH NORMAL WALL MOTION. MILD TRICUSPID REGURGITATION, MILD MITRAL REGURGITATION. MILD AORTIC REGURGITATION. TRACE OF PERICARDIAL EFFUSION. TECHNOLOGIST: ARON MOSES
== END 2021-08-23 13:10 | disposition home or self-care (01) | DRG 66 ==
LOC: ER 10:37 → ERHOLD 13:33 → 2ND 16:23
PROVIDERS: ADMIT Internal Medicine; ATTEND Internal Medicine
DX: I63.9 Cerebral infarction, unspecified (principal); R29.810 Facial weakness; G83.21 Monoplegia of upper limb affecting right dominant side; R29.706 NIHSS score 6; E78.5 Hyperlipidemia, unspecified; I73.9 Peripheral vascular disease, unspecified; I10 Essential (primary) hypertension; F17.200 Nicotine dependence, unspecified, uncomplicated; Z20.822 Contact with and (suspected) exposure to COVID-19
CPT/HCPCS: 36415; 70450; 70496; 70498; 70544; 70549; 70553; 71045; 80048; 80061; 83735; 84100; 84132; 84443; 85025; 85610; 85652; 85730; 92610; 93005; 93306; 97116; 97162; 97530; 99285; A9577; J1650; J7030; Q9967; U0003

== ENCOUNTER 2021-09-09 13:46 | Inpatient (IN) | payer OTHER ==
--- OUTSIDE RECORDS SUMMARY | 2021-09-09 13:49 | XMS REPORT | Continuity of Care Document ---
:1960 Author Organization [facility] Address [address] [place] [address] Dr. Dhaliwal [address] [place] [address] Care Team Providers Name Role Phone ERIKA_Edy Attending Clinician Unavailable Gina Awad Attending Clinician [phone] RICK Attending Clinician Unavailable Netta Penaloza Attending Clinician [phone] [email or web address] Attending Clinician Unavailable MIA Attending Clinician Unavailable ERIKA_Edy Admitting Clinician Unavailable [email or web address] Admitting Clinician Unavailable MIA Admitting Clinician Unavailable Payers Payer Name Policy Type Policy Number Effective Date Expiration Date [facility] ADMINISTRATIVE [id number] CONCEPTS - LIMITED MEDICAL PLAN [facility] ([place]) [place] [facility] [id number] 2017 2021 (O) 00:00:00 00:00:[address] [facility] [id number] [facility] [id number] 2017 00:00:00 Problems This patient has no known problems. Allergies, Adverse Reactions, Alerts This patient has no known allergies or adverse reactions. Medications This patient has no known medications. Procedures This patient has no known procedures. Encounters Start End Encounter Admission Attending Care Care Encounter Source Date/Time Date/Time Type Type Clinicians Facility Department ID 2021-09-07 2021-09-07 Outpatient [facility] [id number] [place] 09:30:00 09:30:00 [facility] 2021-09-06 2021-09-06 Outpatient [facility] [id number] [place] 12:46:00 12:46:00 [facility] 2021-08-26 2021-08-26 Outpatient [facility] [id number] [place] 06:20:00 06:20:00 [facility] 2021-08-09 2021-08-09 Outpatient [facility] [id number] [place] 10:03:00 10:03:00 [facility] 2021-07-30 2021-07-30 Outpatient [facility] [id number] [place] 05:21:00 05:21:00 [facility] 2021-06-22 2021-06-22 Outpatient [facility] [id number] [place] 04:51:00 04:51:00 [facility] 2021-06-22 2021-06-22 Outpatient Rozina Awad [facility] [id number] 00:00:00 00:00:00 Gina [id number] 2021-04-14 2021-04-14 Outpatient KEFÁTIMA_A [facility] [id number] [place] 08:23:00 08:23:00 [facility] 2021-04-13 2021-04-13 Outpatient ERIKA_A [facility] [id number] [place] 06:34:00 06:34:00 [facility] 2021-04-13 2021-04-13 Outpatient Rozina Awad [facility] [id number] 00:00:00 00:00:00 Gina [id number] 2021-01-28 2021-01-28 Outpatient [facility] [id number] [place] 00:00:00 00:00:[address] 2020-12-24 2020-12-24 Outpatient [facility] [id number] [place] 00:00:00 00:00:[address] 2020-11-26 2020-11-26 Outpatient [facility] [id number] [place] 06:25:00 06:25:00 [facility] 2020-11-19 2020-11-19 Outpatient [facility] [id number] [place] 09:31:00 09:31:00 [facility] 2020-11-19 2020-11-19 Outpatient Ca [facility] [id number] 00:00:00 00:00:00 Aidan [id number] [place] [id number] 2020-10-29 2020-10-29 Outpatient [facility] [id number] [place] 00:00:00 00:00:[address] 2020-10-28 2020-10-28 Outpatient [facility] [id number] [place] 00:00:00 00:00:[address] 2020-10-28 2020-10-28 Outpatient [facility] [id number] [place] 00:00:00 00:00:[address] 2020-10-28 2020-10-28 Outpatient [facility] [id number] [place] 00:00:00 00:00:[address] 2020-10-15 2020-10-15 Outpatient [facility] [id number] [place] 01:02:00 01:02:00 [facility] 2020-10-02 2020-10-02 Outpatient [facility] [id number] [place] 03:57:00 03:57:00 326 [facility] 2020-09-08 2020-09-08 Outpatient [facility] [id number] [place] 12:01:00 12:01:00 [facility] 2020-08-27 2020-08-27 Outpatient [facility] [id number] [place] 01:02:00 01:02:00 [facility] 2020-08-20 2020-08-20 Outpatient [facility] [id number] [place] 09:14:00 09:14:00 [facility] 2020-08-20 2020-08-20 Outpatient Ca [facility] [id number] 00:00:00 00:00:00 Aidan [id number] [place] [id number] 2020-08-05 2020-08-05 Outpatient [facility] [id number] [place] 11:55:00 11:55:00 [facility] 2020-08-05 2020-08-05 Outpatient Rozina Awad [facility] [id number] 00:00:00 00:00:00 Gina [id number] 2020-08-03 2020-08-03 Outpatient [facility] [id number] [place] 03:52:00 03:52:00 [facility] 2020-07-21 2020-07-21 Outpatient [facility] [id number] [place] 09:57:00 09:57:00 [facility] 2020-07-21 2020-07-21 Outpatient Ca [facility] [id number] 00:00:00 00:00:00 Aidan [id number] [place] [id number] 2020-07-04 2020-07-04 Outpatient KEFÁTIMA_Edy [facility] [id number] [place] 01:01:00 01:01:00 [facility] 2020-06-16 2020-06-16 Outpatient Ca [facility] [id number] 00:00:00 00:00:00 Aidan [id number] [place] [id number] 2020-05-27 2020-05-27 Outpatient kefátima_edy [facility] [id number] [place] 02:34:00 02:34:00 [id number] 2020-02-11 2020-02-11 Outpatient EUSEBIA IAJEANETTE [facility] 109 - [place] 12:25:00 12:25:00 [facility] [id number] da [facility] 2019-09-03 2019-09-03 Outpatient RICK [facility] [id number] [place] 00:00:00 00:00:[address] Results This patient has no known results.
[2021-09-09] MEDS ORDERED: NA CHLORIDE 0.9% 1,000 ML ONE (14:21)
[2021-09-09] MEDS ORDERED: FOLIC ACID 5 MG/ML VIAL ONE (14:21)
--- NOTE | 2021-09-09 14:30 | RAD REPORT ---
EXAM DESCRIPTION: CT - Ct Stroke Brain Wo Cont - 09/09/2021 2:15 pm CLINICAL HISTORY: Dizziness;Slurred speech COMPARISON: Head angio dated 08/21/2021; Brain W/Wo Cont dated 08/23/2021; Neck Angio dated 08/21/2021; Ct Stroke Brain Wo Cont dated 08/21/2021 TECHNIQUE: Axial 5 millimeter thick images of the head were obtained without IV contrast. All CT scans are performed using dose optimization technique as appropriate and may include automated exposure control or mA/KV adjustment according to patient size. FINDINGS: No intracranial hemorrhage, mass, or cerebral edema. No acute cortical based infarction. N o cortical edema or sulcal effacement. No significant atrophy or chronic ischemic change. No extra-ax ial fluid collections. Saleem matter-white matter differentiation is preserved.Ventricles are normal. Visualized portions of the mastoid air cells, paranasal sinuses, and orbits are unremarkable. Findings telephoned to Dr Goetz 2:21 p.m. IMPRESSION: No CT evidence of acute intracranial process. No change from prior study. The prior CT study was also negative; however, the follow-up MRI study showed that the patient had CT occult nonhemorrhagic infarctions. Follow-up stroke protocol study would be recommended.
[2021-09-09 14:31] LABS: Absolute Lymphocytes (CBC) 1.6 K/uL (0.7-4.9); Hematocrit 22.8 % (36.0-45.0); Lymphocytes % 17.9 % (15.3-44.8); MPV 7.3 fL (7.6-11.3); RBC Red Blood Cell Count 3.23 M/uL (3.86-4.86)
[2021-09-09 14:56] LABS: Protime INR 1.08
--- NOTE | 2021-09-09 15:23 | RAD REPORT ---
EXAM DESCRIPTION: RAD - Chest Single View - 09/09/2021 2:32 pm CLINICAL HISTORY: COUGH, Stroke protocol chest film COMPARISON: Single-view 08/21/2021 TECHNIQUE: AP portable chest image was obtained 09/09/2021 2:32 pm . FINDINGS: Fibrotic lung pattern is present matching comparison. Lung markings are more prominent in the right lung field compared to the left also matching comparison. No significant failure or volume overload. A focal mass or consolidation focus is not seen. Severity of chronic disease could mask jono ma or infiltrate. Calcified breast implant capsules overlie lower chest. Heart and vasculature are normal. No measurable pleural effusion and no pneumothorax. No acute bony abnormality seen. No acute aortic findings suspected. IMPRESSION: No acute cardiopulmonary process. Chronic interstitial lung disease is present not substantially different from comparison. Severity co uld mask a mild acute edema or infiltrate.
--- NOTE | 2021-09-09 15:39 | RAD REPORT ---
EXAM DESCRIPTION: MRI - Brain Wo Cont - 09/09/2021 3:12 pm CLINICAL HISTORY: APHASIA COMPARISON: Brain W/Wo Cont dated 08/23/2021; Ct Stroke Brain Wo Cont dated 09/09/2021 TECHNIQUE: Sagittal T1-weighted images were obtained along with axial PD, heavily T2-weighted and T2 -FLAIR images. Axial DWI and ADC mapping sequences were also obtained along with coronal heavily T2-w eighted images. FINDINGS: No intracranial hemorrhage is present. No mass effect, edema or shift of midline structure s. A new 5 mm sized area of abnormal diffusion weighted imaging seen in the left occipital lobe. Ther e is corresponding decreased signal on ADC mapping sequence. Hyperintense diffusion signal remains at the sites of nonhemorrhagic infarction in each cerebral hemisphere detailed on the August 23 study . There is no edema or shift of midline structures. No extra-axial fluid collections. Saleem-matter/whi te matter junction is preserved. Signal voids are seen as a normal finding in the major intracranial vessels. No globe or orbital content abnormality. Mastoid air cells and paranasal sinuses are clear. IMPRESSION: A single 5 mm punctate focus of nonhemorrhagic acute CVA is present in the left occipita l lobe. Persistent signal abnormalities related to subacute nonhemorrhagic infarctions in each cerebral hemis phere detailed on the August 23 imaging.
[2021-09-09 15:48] LABS: ALT/SGPT 16 U/L (12-78); AST/SGOT 13 U/L (15-37); Albumin 3.8 g/dL (3.4-5.0); Alkaline Phosphatase 107 U/L (45-117); BUN Blood Urea Nitrogen 23 mg/dL (7-18); Bicarbonate 23 mmol/L (21-32); Bilirubin Direct < 0.1 mg/dL (0-0.2); Bilirubin Total 0.2 mg/dL (0.2-1.0); C-Reactive Protein 3.44 mg/L (<3.00); Glucose Level 91 mg/dL (74-106); Magnesium 2.5 mg/dL (1.8-2.4); NT PRO-BNP 331 pg/mL (<125); Potassium 4.1 mmol/L (3.5-5.1); Protein, Total 7.8 g/dL (6.4-8.2); Sodium Level 137 mmol/L (136-145)
--- NOTE | 2021-09-09 16:48 | EDPHYS ---
Physician Documentation [facility] Name: Alyssa Britton Age: 61 yrs Sex: Female : 1960 Arrival Date: 09/09/2021 Time: 13:49 Bed 23 Private MD: Rozina Awad ED Physician Joaquin Goetz HPI: 09/09 16:37 This 61 yrs old Female presents to ER via Wheelchair with complaints of gerard Slurred Speech, Confusion. 16:37 The patient presents to the emergency department with a speech or higher order brain gerard function problem, aphasia. Onset: The symptoms/episode began/occurred just prior to arrival, awoke this way. Context: occurred at home, occurred while the patient was sleeping. Associated signs and symptoms: The patient has no apparent associated signs or symptoms. Severity of symptoms: At their worst the symptoms were mild in the emergency department the symptoms are unchanged. Patient's baseline: Neuro: alert and fully oriented, Motor: no deficits, Ambulation: walks without assistance, Speech: normal. Current symptoms: dysphasia. The patient has not experienced similar symptoms in the past. Historical: - Allergies: 13:54 Amoxicillin; ll1 13:54 Clindamycin; ll1 13:54 Codeine; ll1 - PMHx: 13:54 High Cholesterol; Hypertensive disorder; Anemia; kidney disease; stroke; possible lung ll1 CA; - PSHx: 13:54 Unable to Obtain; ll1 - Immunization history:: Client reports having NOT received the Covid vaccine. - Social history:: Smoking status: Patient reports the use of cigarette tobacco products, smokes one-half pack cigarettes per day. - Family history:: not pertinent. ROS: 16:37 Constitutional: Negative for fever, chills, and weight loss, Eyes: Negative for injury, gerard pain, redness, and discharge, ENT: Negative for injury, pain, and discharge, Neck: Negative for injury, pain, and swelling, Cardiovascular: Negative for chest pain, palpitations, and edema, Respiratory: Negative for shortness of breath, cough, wheezing, and pleuritic chest pain, Abdomen/GI: Negative for abdominal pain, nausea, vomiting, diarrhea, and constipation, Back: Negative for injury and pain, : Negative for injury, bleeding, discharge, and swelling, MS/Extremity: Negative for injury and deformity, Skin: Negative for injury, rash, and discoloration, Psych: Negative for depression, anxiety, suicide ideation, homicidal ideation, and hallucinations, Allergy/Immunology: Negative for hives, rash, and allergies, Endocrine: Negative for neck swelling, polydipsia, polyuria, polyphagia, and marked weight changes, Hematologic/Lymphatic: Negative for swollen nodes, abnormal bleeding, and unusual bruising. 16:37 Neuro: Positive for speech changes. Exam: 16:37 Constitutional: This is a well developed, well nourished patient who is awake, alert, gerard and in no acute distress. Head/Face: Normocephalic, atraumatic. Eyes: Pupils equal round and reactive to light, extra-ocular motions intact. Lids and lashes normal. Conjunctiva and sclera are non-icteric and not injected. Cornea within normal limits. Periorbital areas with no swelling, redness, or edema. ENT: Nares patent. No nasal discharge, no septal abnormalities noted. Tympanic membranes are normal and external auditory canals are clear. Oropharynx with no redness, swelling, or masses, exudates, or evidence of obstruction, uvula midline. Mucous membranes moist. Neck: Trachea midline, no thyromegaly or masses palpated, and no cervical lymphadenopathy. Supple, full range of motion without nuchal rigidity, or vertebral point tenderness. No Meningismus. Chest/axilla: Normal chest wall appearance and motion. Nontender with no deformity. No lesions are appreciated. Cardiovascular: Regular rate and rhythm with a normal S1 and S2. No gallops, murmurs, or rubs. Normal PMI, no JVD. No pulse deficits. Respiratory: Lungs have equal breath sounds bilaterally, clear to auscultation and percussion. No rales, rhonchi or wheezes noted. No increased work of breathing, no retractions or nasal flaring. Back: No spinal tenderness. No costovertebral tenderness. Full range of motion. Female : Normal external genitalia. MS/ Extremity: Pulses equal, no cyanosis. Neurovascular intact. Full, normal range of motion. Psych: Awake, alert, with orientation to person, place and time. Behavior, mood, and affect are within normal limits. 16:37 Abdomen/GI: Inspection: abdomen appears normal, Palpation: abdomen is soft and non-tender, Rectal exam: rectal tone normal, Stool: guaiac positive, hemorrhoid(s), are not appreciated, mass, is not appreciated, swelling, is not appreciated, tenderness, is not appreciated, fecal impaction, is not appreciated, Liver: no appreciated palpable abnormalities, Hernia: not appreciated. 16:48 ECG was reviewed by the Attending Physician. [facility] Vital Signs: 13:56 BP 124 / 68; Pulse 85; Resp 17; Temp 98.0; Pulse Ox 100% ; Weight 49.9 kg; Height 5 ft. ll1 1 in. (154.94 cm); Pain 0/10; 15:22 BP 114 / 98; Pulse 89; Resp 18; Pulse Ox 99% on R/A; ab2 16:08 BP 131 / 76; Pulse 84; Resp 16; Pulse Ox 100% on R/A; ab2 17:00 BP 133 / 56; Pulse 84; Resp 18; Pulse Ox 99% on R/A; ab2 17:54 BP 131 / 86; Pulse 87; Resp 18; Pulse Ox 100% on R/A; ab2 18:48 BP 139 / 56; Pulse 94; Resp 16; Pulse Ox 100% on R/A; Pain 0/10; ab2 19:36 BP 136 / 56; Pulse 93; Resp 16; Pulse Ox 99% on R/A; ab2 20:31 BP 127 / 56; Pulse 84; Resp 18; Pulse Ox 100% on R/A; ab2 13:56 Body Mass Index 20.78 (49.90 kg, 154.94 cm) ll1 NIH Stroke Scale Scores: 14:32 NIHSS Score: 0 ab2 MDM: 14:12 Patient medically screened. [facility] 16:48 Data reviewed: vital signs, nurses notes, lab test result(s), EKG, radiologic studies, [facility] CT scan, MRI, plain films. Data interpreted: automation test engineer: rate is 84 beats/min, rhythm is regular, Pulse oximetry: on room air is 100 %. Test interpretation: by ED physician or midlevel provider: ECG, plain radiologic studies. Counseling: I had a detailed discussion with the patient and/or guardian regarding: the historical points, exam findings, and any diagnostic results supporting the discharge/admit diagnosis, lab results, radiology results, the need for further work-up and treatment in the hospital. 09/09 14:10 Order name: Basic Metabolic Panel; Complete Time: 16:23 [facility] 09/09 14:10 Order name: CBC with Diff [facility] 09/09 14:10 Order name: LFT's; Complete Time: 16:23 [facility] 09/09 14:10 Order name: Magnesium; Complete Time: 16:23 [facility] 09/09 14:10 Order name: NT PRO-BNP; Complete Time: 16:23 [facility] 09/09 14:10 Order name: PT-INR; Complete Time: 16:23 [facility] 09/09 14:10 Order name: Troponin HS; Complete Time: 16:23 [facility] 09/09 14:10 Order name: Sed Rate [facility] 09/09 14:10 Order name: CRP; Complete Time: 16:23 [facility] 09/09 14:12 Order name: SARS-COV-2 RT PCR (Document "Date of Onset" if Symptomatic) [facility] 09/09 14:27 Order name: Glucose, Ancillary Testing; Complete Time: 16:23 [facility] 09/09 16:26 Order name: Type And Screen [facility] 09/09 16:40 Order name: Bb Add On bd 09/09 16:40 Order name: Packed RBC Leukored [facility] 09/09 14:10 Order name: XRAY Chest (1 view); Complete Time: 16:23 [facility] 09/09 14:10 Order name: CT Stroke Brain w/o Contrast; Complete Time: 16:23 [facility] 09/09 14:47 Order name: Brain Wo Cont; Complete Time: 16:23 [facility] 09/09 18:00 Order name: CREATININE WHOLE BLOOD [facility] 09/09 18:01 Order name: ABO/RH no charge [facility] 09/09 20:57 Order name: CBC Smear Scan [facility] 09/09 14:10 Order name: EKG; Complete Time: 14:11 [facility] 09/09 14:10 Order name: Cardiac monitoring; Complete Time: 14:20 [facility] 09/09 14:10 Order name: EKG - Nurse/Tech; Complete Time: 14:20 [facility] 09/09 14:10 Order name: IV Saline Lock; Complete Time: 14:20 [facility] 09/09 14:10 Order name: Labs collected and sent; Complete Time: 14:20 [facility] 09/09 14:10 Order name: O2 Per Protocol; Complete Time: 14:20 [facility] 09/09 14:10 Order name: O2 Sat Monitoring; Complete Time: 14:20 [facility] 09/09 16:43 Order name: IV Saline Lock - Large Bore; Complete Time: 17:42 gerard 09/09 17:51 Order name: CONS Physician Consult EDMS EC:48 Rate is 77 beats/min. Rhythm is regular. QRS [place] is Normal. [place] interval is normal. QT gerard interval is normal. No Q waves. T waves are Normal. No ST changes noted. Clinical impression: Normal ECG and No evidence of ischemia. Interpreted by me. Reviewed by me. Administered Medications: 14:20 Drug: NS 0.9% 1000 ml Route: IV; Rate: 1 bolus; Site: right wrist; ab2 16:57 Follow up: Response: No adverse reaction; IV Status: Completed infusion ab2 14:20 Drug: foLIC Acid 1 mg Route: IVPB; Site: right wrist; ab2 16:57 Follow up: Response: No adverse reaction; IV Status: Completed infusion ab2 17:04 Drug: ProTONIX (pantoprazole) 40 mg Route: IVP; Site: right wrist; ab2 18:01 Follow up: Response: No adverse reaction ab2 17:04 Drug: ProTONIX (pantoprazole) 40 mg Route: IVP; Site: right wrist; ab2 18:01 Follow up: Response: No adverse reaction ab2 18:01 Drug: ProTONIX (pantoprazole) 8 mg/hr Route: IV; Rate: 25 ml/hr; Site: right wrist; ab2 18:48 Drug: Aspirin 81 mg Route: PO; ab2 Point of Care Testing: Blood Glucose: 14:34 Blood Glucose: 88 mg/dL; ab2 Ranges: Critical Glucose Levels:Adult <50 mg/dl or >400 mg/dl <40 mg/dl or >180 mg/dl Disposition Summary: 09/09/21 16:48 Hospitalization Ordered Hospitalization Status: Inpatient Admission gerard Provider: Scott Perez gerard Condition: Fair gerard Problem: new gerard Symptoms: are unchanged gerard Bed/Room Type: Standard gerard Location: Intensive Care Unit(09/09/21 20:05) cg Room Assignment: 4-(09/09/21 20:05) cg Diagnosis - Cerebral infarction, unspecified - left acute cva occipital lobe gerard - GI Bleed/ Gastrointestinal hemorrhage, unspecified gerard - Anemia, unspecified gerard - Tobacco use gerard Forms: - Medication Reconciliation Form gerard - SBAR form gerard NIH Stroke Scale - NIH Stroke Score Date: 09/09/2021 Time: 14:32 Total Score = 0 1a. Level of Consciousness (LOC) - 0(Alert) 1b. Level of Consciousness (LOC) (Month \\T\\ Age) - 0(Both) 1c. LOC Commands (Open \\T\\ Closes Eyes/Naval Architect) - 0(Both) 2. Best Gaze (Lateral Gaze Paresis) - 0(Normal) 3. Visual Field Loss - 0(No visual loss) 4. Facial Palsy - 0(Normal) 5a. Left Arm: Motor (10-second hold) - 0(No drift) 5b. Right Arm: Motor (10-second hold) - 0(No drift) 6a. Left Leg: Motor (5-second hold - always test supine) - 0(No drift) 6b. Right Leg: Motor (5-second hold - always test supine) - 0(No drift) 7. Limb Ataxia (finger/nose \\T\\ heel/reyna - test with eyes open) - 0(Absent) 8. Sensory Loss (pinprick arms/legs/face) - 0(Normal) 9. Best Language: Aphasia (description/naming/reading) - 0(No aphasia) 10. Dysarthria (speech clarity - read or repeat words) - 0(Normal) 11. Extinction and Inattention (visual/tactile/auditory/spatial/personal) - 0(No abnormality) Initials: ab2 Signatures: Dispatcher [employer] EDJoaquin Vergara MD MD cha Attema, Lee, FIRE CONTROL TECHNICIAN B-C FIRE CONTROL TECHNICIAN B-Cla1 Carolee Le RN RN Joey Maciel RN RN moreno1 Nir Bonds RN RN ll1 You Ramires PA PA ej Bleininger, Alexis ab2 Corrections: (The following items were deleted from the chart) 14:34 14:11 Neck Angio+CT.RAD.BRZ ordered. EDMS EDMS 14:34 14:12 Head Angio+CT.RAD.BRZ ordered. EDMS EDMS 14:47 14:12 MR STROKE PROTOCOL+MRI.RAD.BRZ ordered. EDMS EDMS 17:07 16:44 PACKED RBC LEUKORED -1+BB.LAB.BRZ ordered. EDMS EDMS 17:07 16:44 ABO/RH typing ordered. EDMS EDMS 17:07 16:44 Antibody Screen ordered. EDMS EDMS 18:04 16:48 Telemetry/MedSurg (Inpatient) gerard la1 18:04 16:48 gerard la1 18:40 18:04 Intensive Care Unit la1 ja1 18:40 18:04 la1 ja1 20:05 18:40 [facility] ER HOLD ja1 cg 20:05 18:40 ERHOLD- ja1 cg
--- NOTE | 2021-09-09 16:48 | ER ---
Nurse's Notes [facility] Name: Alyssa Britton Age: 61 yrs Sex: Female : 1960 Arrival Date: 09/09/2021 Time: 13:49 Bed 23 Private MD: Rozina Awad Diagnosis: Cerebral infarction, unspecified-left acute cva occipital lobe;GI Bleed/ Gastrointestinal hemorrhage, unspecified;Anemia, unspecified;Tobacco use Presentation: 09/09 13:56 Chief complaint: Patient states: Awoke today around 8 am and couldn't talk right. ll1 Expressive aphasia and slurred speech. Went to bed at 9 PM normal per . Had stroke 3 weeks ago. Coronavirus screen: Vaccine status: Patient reports being unvaccinated. Client denies travel out of the [place] in the last 14 days. At this time, the client does not indicate any symptoms associated with coronavirus-19. Ebola Screen: Patient denies travel to an Ebola-affected area in the 21 days before illness onset. No acute neurological deficit is noted. Initial Sepsis Screen: Does the patient have a suspected source of infection? No. Patient's initial sepsis screen is negative. Risk Assessment: Do you want to hurt yourself or someone else? Patient reports no desire to harm self or others. Onset of symptoms was September 09, 2021. 13:56 Method Of Arrival: Wheelchair ll1 13:56 Acuity: CORNELL 2 ll1 Triage Assessment: 13:55 The onset of the patients symptoms was more than six hours ago. General: Appears ll1 uncomfortable, Behavior is appropriate for age. Pain: Denies pain. Neuro: Reports unable to speak well, cannot get words out. . Cardiovascular: No deficits noted. Respiratory: No deficits noted. Stroke Activation: Symptom onset > 6 hours Physician: Stroke Attending; Name: ; Notified At: ; Arrived At: Physician: Chief Stroke Resident; Name: ; Notified At: ; Arrived At: Physician: Stroke Resident; Name: ; Notified At: ; Arrived At: Physician: ED Attending; Name: ; Notified At: ; Arrived At: Physician: ED Resident; Name: ; Notified At: ; Arrived At: Historical: - Allergies: 13:54 Amoxicillin; ll1 13:54 Clindamycin; ll1 13:54 Codeine; ll1 - PMHx: 13:54 High Cholesterol; Hypertensive disorder; Anemia; kidney disease; stroke; possible lung ll1 CA; - PSHx: 13:54 Unable to Obtain; ll1 - Immunization history:: Client reports having NOT received the Covid vaccine. - Social history:: Smoking status: Patient reports the use of cigarette tobacco products, smokes one-half pack cigarettes per day. - Family history:: not pertinent. Screenin:34 Abuse screen: Denies threats or abuse. Denies injuries from another. Nutritional ab2 screening: No deficits noted. Tuberculosis screening: No symptoms or risk factors identified. Fall Risk None identified. Assessment: 14:32 VAN Scoring: Arm Drift: Patients demonstrates NO arm weakness. Patient is VAN Negative. ab2 The patient has not been NPO before screening. The patient is alert, and able to follow commands. The patient does not exhibit slurred or garbled speech. The patient is not exhibiting difficulty speaking. The patient does not exhibit difficulty understanding words. The patient is able to swallow own secretions with no drooling or need for suction. Patient tolerated one teaspoon of water. No drooling, immediate coughing, gurgling, or clearing of the throat was noted. 14:33 General: Appears in no apparent distress. comfortable, Behavior is calm, cooperative, ab2 appropriate for age. Pain: Denies pain. Neuro: Level of Consciousness is awake, alert, obeys commands, Oriented to person, place, time, situation, Appropriate for age Fashion Designer are equal bilaterally Moves all extremities. Gait is steady, Speech is normal, Facial symmetry appears normal. Cardiovascular: No deficits noted. Denies chest pain, shortness of breath, Heart tones S1 S2 present Patient's skin is warm and dry. Rhythm is sinus rhythm. Respiratory: Airway is patent Respiratory effort is even, unlabored, Respiratory pattern is regular, symmetrical, Breath sounds are clear bilaterally. GI: No deficits noted. No signs and/or symptoms were reported involving the gastrointestinal system. Abdomen is round non-distended, Bowel sounds present X 4 quads. : No deficits noted. No signs and/or symptoms were reported regarding the genitourinary system. EENT: No deficits noted. No signs and/or symptoms were reported regarding the EENT system. Derm: No deficits noted. No signs and/or symptoms reported regarding the dermatologic system. Skin is intact, is healthy with good turgor, Skin is pink, warm \\T\\ dry. Musculoskeletal: No deficits noted. No signs and/or symptoms reported regarding the musculoskeletal system. 15:21 Reassessment: Patient appears in no apparent distress at this time. Pt brought back ab2 from MRI. Denies any needs, resting comfortbaly. Awaiting results. 16:20 Reassessment: Patient appears in no apparent distress at this time. Resting ab2 comfortable, given warm blankets as requested. at bedside. Denies any further needs, awaiting results for disposition. 17:56 Reassessment: Patient appears in no apparent distress at this time. Patient to be ab2 admitted awaiting room for admission. 19:36 Reassessment: Awaiting lab to get blood ready for PRBC transfusion. ab2 20:31 Reassessment: Patient appears in no apparent distress at this time. No changes from ab2 previously documented assessment. Vital Signs: 13:56 BP 124 / 68; Pulse 85; Resp 17; Temp 98.0; Pulse Ox 100% ; Weight 49.9 kg; Height 5 ft. ll1 1 in. (154.94 cm); Pain 0/10; 15:22 BP 114 / 98; Pulse 89; Resp 18; Pulse Ox 99% on R/A; ab2 16:08 BP 131 / 76; Pulse 84; Resp 16; Pulse Ox 100% on R/A; ab2 17:00 BP 133 / 56; Pulse 84; Resp 18; Pulse Ox 99% on R/A; ab2 17:54 BP 131 / 86; Pulse 87; Resp 18; Pulse Ox 100% on R/A; ab2 18:48 BP 139 / 56; Pulse 94; Resp 16; Pulse Ox 100% on R/A; Pain 0/10; ab2 19:36 BP 136 / 56; Pulse 93; Resp 16; Pulse Ox 99% on R/A; ab2 20:31 BP 127 / 56; Pulse 84; Resp 18; Pulse Ox 100% on R/A; ab2 13:56 Body Mass Index 20.78 (49.90 kg, 154.94 cm) ll1 NIH Stroke Scale Scores: 14:32 NIHSS Score: 0 ab2 ED Course: 13:49 Patient arrived in ED. mr 13:49 Rozina Awad MD is Private Physician. mr 13:54 Arm band placed on. ll1 13:58 Triage completed. ll1 14:00 Inserted saline lock: 22 gauge in right forearm, using aseptic technique. Blood ss collected. 14:06 Joaquin Goetz MD is Attending Physician. gerard 14:12 Wan Chavis is Primary Nurse. ab2 14:14 CT Stroke Brain w/o Contrast In Process Unspecified. EDMS 14:20 Basic Metabolic Panel Sent. ab2 14:20 CBC with Diff Sent. ab2 14:20 LFT's Sent. ab2 14:20 Magnesium Sent. ab2 14:20 NT PRO-BNP Sent. ab2 14:20 PT-INR Sent. ab2 14:20 Troponin HS Sent. ab2 14:32 XRAY Chest (1 view) In Process Unspecified. EDMS 14:34 No provider procedures requiring assistance completed. ab2 14:35 Patient has correct armband on for positive identification. Bed in low position. Call ab2 light in reach. Side rails up X2. 15:07 Brain Wo Cont In Process Unspecified. EDMS 16:03 SARS-COV-2 RT PCR (Document "Date of Onset" if Symptomatic) Sent. ab2 16:44 Scott Perez MD is Hospitalizing Provider. gerard 16:56 Bb Add On Sent. ab2 16:57 Type And Screen Sent. ab2 20:22 Inserted saline lock: 20 gauge in left wrist, using aseptic technique. sm5 20:54 Report given to Jorje yeboah in ICU. ab2 Administered Medications: 14:20 Drug: NS 0.9% 1000 ml Route: IV; Rate: 1 bolus; Site: right wrist; ab2 16:57 Follow up: Response: No adverse reaction; IV Status: Completed infusion ab2 14:20 Drug: foLIC Acid 1 mg Route: IVPB; Site: right wrist; ab2 16:57 Follow up: Response: No adverse reaction; IV Status: Completed infusion ab2 17:04 Drug: ProTONIX (pantoprazole) 40 mg Route: IVP; Site: right wrist; ab2 18:01 Follow up: Response: No adverse reaction ab2 17:04 Drug: ProTONIX (pantoprazole) 40 mg Route: IVP; Site: right wrist; ab2 18:01 Follow up: Response: No adverse reaction ab2 18:01 Drug: ProTONIX (pantoprazole) 8 mg/hr Route: IV; Rate: 25 ml/hr; Site: right wrist; ab2 18:48 Drug: Aspirin 81 mg Route: PO; ab2 Point of Care Testing: Blood Glucose: 14:34 Blood Glucose: 88 mg/dL; ab2 Ranges: Outcome: 16:48 Decision to Hospitalize by Provider. gerard 21:05 Admitted to ICU accompanied by nurse, via stretcher, on monitor, with chart. ab2 21:05 Condition: good 21:24 Patient left the ED. ab2 NIH Stroke Scale - NIH Stroke Score Date: 09/09/2021 Time: 14:32 Total Score = 0 1a. Level of Consciousness (LOC) - 0(Alert) 1b. Level of Consciousness (LOC) (Month \\T\\ Age) - 0(Both) 1c. LOC Commands (Open \\T\\ Closes Eyes/Printing Roller Polisher) - 0(Both) 2. Best Gaze (Lateral Gaze Paresis) - 0(Normal) 3. Visual Field Loss - 0(No visual loss) 4. Facial Palsy - 0(Normal) 5a. Left Arm: Motor (10-second hold) - 0(No drift) 5b. Right Arm: Motor (10-second hold) - 0(No drift) 6a. Left Leg: Motor (5-second hold - always test supine) - 0(No drift) 6b. Right Leg: Motor (5-second hold - always test supine) - 0(No drift) 7. Limb Ataxia (finger/nose \\T\\ heel/reyna - test with eyes open) - 0(Absent) 8. Sensory Loss (pinprick arms/legs/face) - 0(Normal) 9. Best Language: Aphasia (description/naming/reading) - 0(No aphasia) 10. Dysarthria (speech clarity - read or repeat words) - 0(Normal) 11. Extinction and Inattention (visual/tactile/auditory/spatial/personal) - 0(No abnormality) Initials: ab2 Signatures: Dispatcher [employer] EDJoaquin Vergara MD MD cha Rivera, Meera mr RobleroCass, RN RN ss Nir Bonds RN RN ll1 Sharri Mcdonald, ROSEANNA RN [email or web address] Wan Chavis ab2 Corrections: (The following items were deleted from the chart) 16:09 16:08 BP 1 / ???; ab2 ab2 17:07 16:56 ABO/RH typing drawn and sent. ab2 EDMS 17: 16:56 Antibody Screen drawn and sent. ab2 EDMS 18: 16:20 The patient passed the bedside swallow screening. Oral medications may be ab2 given as ordered. Contact Physician for further diet orders. Provider notified of bedside swallow screening results: Joaquin Goetz MD ab2 18: 16:20 T-PA (Activase) Screening: Contraindications: ab2 ab2
[2021-09-09] MEDS ORDERED: PANTOPRAZOLE 40 MG INJ ONE (17:03)
[2021-09-09] MEDS: PANTOPRAZOLE INJ 80 MG in NA CHLORIDE 0.9% 250 ML IV SCH (18:00)
--- NOTE | 2021-09-09 18:28 | P.HP ---
Certification for Inpatient Patient admitted to: Inpatient With expected LOS: >2 Midnights Patient will require the following post-hospital care: None Practitioner: I am a practitioner with admitting privileges, knowledge of patient current condition, hospital course, and medical plan of care. Services: Services provided to patient in accordance with Admission requirements found in Title 42 Section 412.3 of the Code of Federal Regulations Patient History Date of Service: 09/09/21 Reason for admission: acute CVA, UGIB History of Present Illness: Ms. Britton is a 61 yo F with HTN, HLD, PVD, history of CVA 2 weeks ago who woke up this morning with aphasia. She says when she awoke at 8am her speech was slurred, she couldn't form words, and she couldn't remember basic facts like her birthday. Denies weakness, numbness, gait abnormalities. She has been taking aspirin and plavix daily. She still smokes. Her previous CVA presented as right sided weakness. She reports melena, guiac positive in the ED. She had an appointment for an upper and lower GI this week but needed neurology and cardiology clearance beforehand. She was scheduled to see a neurologist next week. Hgb 7.4 MCV 70.6 BUN 23 Cr 1.55 GFR 34 CRP 3.4 BNP 331 Received folic acid, protonix drip, and fluids in the ED. 2 units pRBCs are pending. MRI MPRESSION: A single 5 mm punctate focus of nonhemorrhagic acute CVA is present in the left occipital lobe. Persistent signal abnormalities related to subacute nonhemorrhagic infarctions in each cerebral hemisphere detailed on the August 23 imaging. Allergies codeine [Codeine] Allergy (Verified 07/06/12 12:18) CHILDHOOD ALLERGY Home Medications: Amitriptyline [Elavil*] 25 mg PO BEDTIME 08/21/21 Amlodipine [Norvasc*] 5 mg PO DAILY 08/21/21 Cholecalciferol (Vitamin D3) [Vitamin D3] 50,000 unit PO EVERY 7TH DAY 08/21/21 Clopidogrel Bisulfate [Plavix] 75 mg PO DAILY 08/21/21 Cyclobenzaprine [Flexeril*] 10 mg PO DAILY 08/21/21 Losartan Potassium 25 mg PO DAILY 08/21/21 Pantoprazole [Protonix Tab*] 40 mg PO DAILY 08/21/21 Simvastatin 40 mg PO DAILY 08/21/21 Aspirin [Aspirin EC] 81 mg PO DAILY #30 tablet. 08/23/21 Folic Acid 1 mg PO DAILY #30 tablet 08/23/21 - Past Medical/Surgical History Diabetic: No -: Hyperlipidemia -: Peripheral vascular disease -: Hypertension -: Ilial-femoral bypass - Social History Smoking Status: Current every day smoker Alcohol use: Yes CD- Drugs: No Caffeine use: Yes Place of Residence: Home Review of Systems 10-point ROS is otherwise unremarkable General: Unremarkable Eyes: Vision Change ENT: Unremarkable Cardiovascular: Unremarkable Gastrointestinal: Melena Genitourinary: Unremarkable Musculoskeletal: Unremarkable Integumentary: Unremarkable Neurological: Change in Speech, Confusion, As per HPI Lymphatics: Unremarkable Physical Examination - Physical Exam General: Alert, In no apparent distress, Oriented x3 HEENT: Atraumatic, PERRLA, Mucous membr. moist/pink, EOMI, Sclerae nonicteric Neck: Supple, 2+ carotid pulse no bruit, No LAD, Without JVD or thyroid abnormality Respiratory: Clear to auscultation bilaterally, Normal air movement Cardiovascular: No edema, Regular rate/rhythm, Normal S1 S2 Gastrointestinal: Normal bowel sounds, No tenderness Musculoskeletal: No tenderness Integumentary: No rashes Neurological: Normal strength at 5/5 x4 extr, Normal tone, Sensation intact, Normal affect, Abnormal speech Lymphatics: No axilla or inguinal lymphadenopathy - Studies Laboratory Data (last 24 hrs) 09/09/21 14:14: PT 12.4, INR 1.08 09/09/21 14:14: WBC 8.90, Hgb 7.4 L, Hct 22.8 L, Plt Count 289 09/09/21 14:14: Sodium 137, Potassium 4.1, BUN 23 H, Creatinine 1.55 H, Glucose 91, Magnesium 2.5 H, Total Bilirubin 0.2, AST 13 L, ALT 16, Alkaline Phosphatase 107 Assessment and Plan - Problems (Diagnosis) (1) UGIB (upper gastrointestinal bleed) Current Visit: Yes Status: Acute (2) AKASH (iron deficiency anemia) Current Visit: Yes Status: Chronic Qualifiers: Iron deficiency anemia type: chronic blood loss Qualified Code(s): D50.0 - Iron deficiency anemia secondary to blood loss (chronic) (3) DINA (acute kidney injury) Current Visit: Yes Status: Acute (4) Acute CVA (cerebrovascular accident) Current Visit: No Status: Acute (5) Hyperlipidemia Current Visit: No Status: Chronic Qualifiers: Hyperlipidemia type: unspecified Qualified Code(s): E78.5 - Hyperlipidemia, unspecified (6) Hypertension Current Visit: No Status: Chronic Qualifiers: Hypertension type: primary hypertension Qualified Code(s): I10 - Essential (primary) hypertension (7) Peripheral vascular disease Current Visit: No Status: Chronic (8) Tobacco use Current Visit: No Status: Chronic - Plan neurology consulted, surgery consulted daily aspirin, SCDs. hold plavix. continue folic acid and atorvastatin lipid and thyroid levels pending ECHO and carotid US ordered bedside swallow, NPO, speech consult PT consult, rehab consult permissive HTN, prn hydralazine for SBP >[address] Head tomorrow 2 units pRBCs being transfused now, will recheck H/H 2 hours post hemoglobin/hematocrit q6 hours continue IV protonix drip, IV fluid hydration iron panel pending monitor renal function, if no improvement, consult nephrology Discharge Plan: Home Plan to discharge in: Greater than 2 days - Advance Directives Does patient have a Living Will: No Does patient have a Durable POA for Healthcare: No - Code Status/Comfort Care Code Status Assessed: Yes (full code ) Critical Care: Yes Time Spent Managing Pts Care (In Minutes): 70
[2021-09-09] MEDS ORDERED: ASPIRIN 81 MG CHEWABLE TABLET ONE (18:51)
[2021-09-09 20:56] LABS: Anisocytosis 2+; Blood Morphology Comment NOTED (NOT SEEN); Hypochromasia 1+; Ovalocytes SLIGHT; Platelet Estimate ADEQ; Poikilocytosis 1+; Polychromasia 1+; White Blood Cell Scan OK (OK)
[2021-09-09] MEDS ORDERED: HYDRALAZINE HCL 20 MG/ML VIAL IV PRN (21:51)
[2021-09-09] MEDS ORDERED: ONDANSETRON 4 MG/2 ML VIAL IV PRN (21:51)
[2021-09-09] MEDS ORDERED: ATORVASTATIN 80 MG TAB PO SCH (21:51)
[2021-09-09] MEDS ORDERED: ACETAMINOPHEN 500 MG TAB PO PRN (21:51)
[2021-09-09] MEDS ORDERED: NA CHLORIDE 0.9% 250 ML ONE (22:16)
[2021-09-09 22:40] LABS: Ferritin 10.8 ng/mL (8-388)
[2021-09-09] MEDS: NA CHLORIDE 0.9% 1,000 ML IV SCH (23:32)
[2021-09-10] MEDS: PANTOPRAZOLE INJ 80 MG in NA CHLORIDE 0.9% 250 ML IV SCH ×3 (04:00→23:15)
[2021-09-10] MEDS ORDERED: MORPHINE 2 MG/ML SYR IV ONE (05:30)
[2021-09-10] MEDS: NA CHLORIDE 0.9% 1,000 ML IV SCH ×3 (05:51→21:51)
--- NOTE | 2021-09-10 07:57 | RAD REPORT ---
EXAM DESCRIPTION: CT - Ct Stroke Brain Wo Cont - 09/10/2021 7:36 am CLINICAL HISTORY: r/o hemorraghic convertion COMPARISON: Ct Stroke Brain Wo Cont dated 09/09/2021; Head angio dated 08/21/2021; Ct Stroke Brain Wo C ont dated 08/21/2021; HEAD BRAIN W O CONTRAST dated 07/06/2012 TECHNIQUE: All CT scans are performed using dose optimization technique as appropriate and may inclu de automated exposure control or mA/KV adjustment according to patient size. FINDINGS: No intracranial hemorrhage, hydrocephalus or extra-axial fluid collection.Small hyperdense focus to the left of the cerebral falx as seen on image 29, series 3 is unchanged since 28/06. It ma y represent a small meningioma. A small calcified meningioma is present along the left parietal croey rium.No areas of brain edema or evidence of midline shift. The paranasal sinuses and mastoids are clear. The calvarium is intact. IMPRESSION: No acute intracranial abnormality. No significant change from prior.
[2021-09-10 08:08] LABS: Absolute Lymphocytes (CBC) 1.1 K/uL (0.7-4.9); Hematocrit 32.2 % (36.0-45.0); Lymphocytes % 12.4 % (15.3-44.8); MPV 7.4 fL (7.6-11.3); RBC Red Blood Cell Count 4.14 M/uL (3.86-4.86)
[2021-09-10 08:23] LABS: Albumin 3.2 g/dL (3.4-5.0); Bilirubin Total 0.4 mg/dL (0.2-1.0); Magnesium 2.1 mg/dL (1.8-2.4); Phosphorus 2.2 mg/dL (2.5-4.9); Protein, Total 6.7 g/dL (6.4-8.2)
[2021-09-10 08:25] LABS: Thyroid Stimulating Hormone 6.44 uIU/mL (0.360-3.740)
[2021-09-10] MEDS ORDERED: ASPIRIN EC 81 MG TAB PO SCH (09:00)
[2021-09-10] MEDS ORDERED: FOLIC ACID 1 MG TABLET PO SCH (09:00)
[2021-09-10] MEDS: SOD FERRIC GLUC COMPLX/SUCROSE 250 MG in NA CHLORIDE 0.9% 250 ML IV SCH (09:18)
--- NOTE | 2021-09-10 11:03 | RAD REPORT ---
EXAM DESCRIPTION: US - Carotid Artery Bilateral - 09/10/2021 1:15 am CLINICAL HISTORY: 61 years, Female, CVA COMPARISON: None. FINDINGS: Multiple grayscale images of both carotid arteries were performed, as well as duplex Doppl er ultrasound. The right common carotid artery demonstrate to be within normal limits. Minimal plaque is identified within the right external carotid artery. The peak systolic velocity of the right internal carotid is 93 cm per second, the right common carotid has a peak systolic velocity of 73 cm per second, with a ratio of ICA/CCA of 1.29. Antegrade flow is identified within the vertebral artery. Normal spec tral wave form was identified within the external carotid artery. The left common carotid demonstrate to be within normal limits. Minimal plaque is identified within t he left carotid bulb. The peak systolic velocity of the left internal carotid artery is 153 cm per second, the peak systolic velocity of the left common carotid artery is 68 cm per second, with a rati o of ICA/CCA of 2.2. Normal of spectral wave form is identified within the external carotid artery. Antegrade flow is identified within the vertebral artery. CAROTID STENOSIS REFERENCE USING STEVE CONSENSUS: Normal: 0-49% stenosis. ICA peak systolic velocity is less than 125 cm/s and plaque or intimal thicke trevon is visible. Less than 50% ICA stenosis: 50-69% stenosis. ICA peak systolic velocity is 125-230 cm/s and plaque is visible. Greater than 70% ICA stenosis but less than near occlusion: 70-95% stenosis. ICA peak systolic veloci ty is more than 230 cm/s and distal plaque with luminal narrowing is seen. Near occlusion: 95-99% stenosis ICA peak systolic velocity is more than 280 cm/s/or variable and sign ificant plaque with luminal narrowing is seen. Occluded: 100% stenosis. No flow identified. IMPRESSION: Minimal peripheral plaque within the left carotid bulb. 50-69% stenosis left internal carotid artery according to NASCET criteria. 0-49% stenosis right internal carotid artery according to NASCET criteria. Antegrade flow both vertebral arteries. Electronically signed by: Jabier Fregoso MD 09/09/2021 11:35 PM CORPORATE ACCOUNT EXECUTIVE Due to temporary technical issues with the PACS/Fluency reporting system, reports are being signed by the in house radiologist without review as a courtesy to ensure prompt reporting. The interpreting r adiologist is fully responsible for the content of the report.
--- NOTE | 2021-09-10 11:33 | EKG ---
Test Date: 2021-09-09 Test Time: 14:15:32 Label Printer: TP MEASUREMENT RESULTS: Intervals: Rate: 77 NE: 148 QRSD: 70 QT: 390 QTc: 441 [place]: P: 80 NE: 148 QRS: 84 T: 50 INTERPRETIVE STATEMENTS: Normal sinus rhythm Normal ECG Compared to ECG 08/21/2021 10:58:26 Myocardial infarct finding no longer present Electronically Signed On 09-10-21 11:29:13 ECHOCARDIOGRAPHER by Jeison Mehta
--- NOTE | 2021-09-10 12:21 | CON ---
Date of Consultation: 09/10/2021 Brief History Of Present Illness: Patient is a 61-year-old female known to me from recent clinic con versation where she was scheduled to get an EGD, colonoscopy for anemia workup. She had a history of a CVA 2 weeks ago and she woke up yesterday on 09/09/2021 at approximately 8 a.m. with aphasia. She states she simply could not speak and slowly became restored, however it was slurred and as such, lillie cordero came to the emergency room with the above-stated complaints. She had difficulty speaking. She had difficulty concentrating and memory trouble such as remembering her birthday was challenging. She f eels somewhat better at this point. However, she continues to have a right lower extremity weakness as of this morning and she is in the ICU, currently. Of note, she was noted to have a hemoglobin of 7.4 on admission, and as such, I was consulted to see the patient for the above-stated issue. She cuevas s a known history of anemia and we were anticipating a workup of an EGD and colonoscopy as an outpati ent. However, with her being an inpatient with a recent stroke or recurrent ongoing stroke, I stated that we should simply transfuse her and continue management per Dr. Holliday/Neurologist for her str aaron in evolution. I spoke to the patient this morning and she was awake, alert, oriented for our con versation, and as such, I interviewed her for the consultation. Past Medical History: Significant for hypertension, hyperlipidemia, peripheral vascular disease, CVA . Past Surgical History: She has an iliofemoral bypass. Social History: Smoking, she smokes everyday. She has a significant 40+ pack history. She drinks a lcohol recreationally. Home Medications: Included Elavil, Norvasc, vitamin D3, Plavix, Flexeril, losartan, Protonix, simvas tatin, aspirin, folic acid. Allergies: TO CODEINE. Review of Systems: Ten-point review of systems other than the HPI, denies. Physical Examination: General: She is awake, alert, and oriented. Psychiatric: She is appropriate, conversive. HEENT: She is normocephalic. Her sclerae were anicteric. Her mucous membranes moist. Oropharynx c lear. Neck: Supple without JVD. Chest: Normal expansion and excursion. Cardiovascular: Regular rate and rhythm. Pulmonary: Clear to auscultation bilaterally. Abdomen: Soft, nontender, nondistended. Extremities: No clubbing, cyanosis, or edema. Neurological: I did not perform a neurologic exam on the patient as she is being seen by a Neurologi st regarding this. Laboratory Data: She had a laboratory exam which revealed a white blood cell count of 8.5, hemoglobi n is 10.4, hematocrit of 32.2, platelet count was 242. Her hemoglobin was 10.4 after transfusion of 2 units of PRBCs, where it was 7.4 prior. Her sodium 141, potassium 4.0, chloride 111, carbon dioxid e 24, BUN 13, creatinine 1.06. Her calcium was 7.9 and phosphorus 2.2. Iron was 15.0, TIBC was 386, transferrin 276, ferritin 10.8, total bilirubin was 0.4, AST 13, ALT 14, alkaline phosphatase is 96. Her TSH was 6.44. She had imaging performed, which included a CT of the brain on 09/09/2021, which showed no evidence of acute intracranial process. No change from prior study. The prior CT was als o negative. MRI study showed that the patient had a CT-occult nonhemorrhagic infarctions. Followup stroke protocol will be recommended. She had a brain MRI shortly thereafter on 09/09/2021, which safia wed a single 5 mm punctate focus of nonhemorrhagic acute CVA present in the left occipital lobe, pers istent signal abnormalities related subacute nonhemorrhagic infarctions in each cerebral hemisphere d etailed in the August 23 imaging. She had a followup CT of the brain on 09/10/2021, that is today, which showed no acute intracranial abnormality. No significant change from prior. She has a caroti d artery ultrasound pending and a chest x-ray performed which was officially read as no acute cardiop ulmonary process, chronic interstitial lung disease present, not substantially different from compari son. Severity could mask a mild acute edema or infiltrate. Assessment And Plan: This is a 61-year-old female who comes in with anemia, now responsive to transf usions with an ongoing cerebrovascular accident in evolution. 1.Continue to monitor her hemoglobin and gastrointestinal function to monitor for evidence of acute blood loss. 2.With the patient's hemoglobin in a safe range, I feel it is appropriate to start patient on hepari n should that be required for treatment of her stroke. However, I will leave that to Dr. Holliday/Ne urologist regarding her need for anticoagulation. However, I do not see the patient has any evidence of active gastrointestinal bleeding necessitating discontinuation of anticoagulation or current inte rvention. However, I will remain available should she need esophagogastroduodenoscopy, colonoscopy, or any other interventions regarding possible gastrointestinal bleed of which there is no evidence of acute gastrointestinal blood loss at this time. Thank you for this interesting consult. GLENN/RAFY Voice ID: [id number] Report ID: [id number]
--- NOTE | 2021-09-10 12:23 | P.PN ---
Subjective Date of Service: 09/10/21 Chief Complaint: acute CVA, UGIB Subjective: Improving (Aphasia has improved. She has regained strength to her right side as well. She can be downgraded to telemetry.) Physical Examination - Vital Signs Temperature: 98.1 F Blood Pressure: 153/72 Pulse: 76 Respirations: 20 Pulse Ox (%): 100 - Physical Exam General: Alert, In no apparent distress, Cooperative HEENT: Atraumatic, Normocephalic Respiratory: Clear to auscultation bilaterally, Normal air movement Cardiovascular: No edema, Normal pulses, Regular rate/rhythm Gastrointestinal: Soft and benign, Non-distended, No tenderness Neurological: Normal speech, Normal affect, Other (Right-sided weakness, UE more than LE) - Studies Laboratory Data (last 24 hrs) 09/09/21 14:14: PT 12.4, INR 1.08 09/09/21 14:14: WBC 8.90, Hgb 7.4 L, Hct 22.8 L, Plt Count 289 09/09/21 14:14: Sodium 137, Potassium 4.1, BUN 23 H, Creatinine 1.55 H, Glucose 91, Magnesium 2.5 H, Total Bilirubin 0.2, AST 13 L, ALT 16, Alkaline Phosphatase 107 Assessment And Plan - Current Problems (Diagnosis) (1) DINA (acute kidney injury) Current Visit: Yes Status: Acute (2) UGIB (upper gastrointestinal bleed) Current Visit: Yes Status: Acute (3) AKASH (iron deficiency anemia) Current Visit: Yes Status: Chronic Qualifiers: Iron deficiency anemia type: chronic blood loss Qualified Code(s): D50.0 - Iron deficiency anemia secondary to blood loss (chronic) (4) Acute CVA (cerebrovascular accident) Current Visit: No Status: Acute (5) Hyperlipidemia Current Visit: No Status: Chronic Qualifiers: Hyperlipidemia type: unspecified Qualified Code(s): E78.5 - Hyperlipidemia, unspecified (6) Hypertension Current Visit: No Status: Chronic Qualifiers: Hypertension type: primary hypertension Qualified Code(s): I10 - Essential (primary) hypertension (7) Peripheral vascular disease Current Visit: No Status: Chronic (8) Tobacco use Current Visit: No Status: Chronic Physician Review Additional Text: 09/10/21 12:18 Assessment Patient is a 61-year-old female with a past medical history of tobacco smoking, hypertension, hyperlipidemia and a recent stroke 2 weeks ago. She is currently on dual antiplatelet therapy. She presented to the ER for evaluation of another stroke after she woke up with difficulty speaking. Her aphasia has improved since her admission. She was found to have left occipital lobe stroke on MRI. She is also being assessed for upper GI bleeding after she reported melenic stools on presentation. Of note, patient has a history of iron deficiency anemia and has been taking iron supplements before her presentation. Acute CVA Suspected upper GI bleeding DINA Hypertension Hyperlipidemia Tobacco smoking Plan: Continue aspirin, folic acid and high intensity statin. PT/OT while in-house Follow-up 2D echo and carotid Doppler Monitor her hemoglobin. She presented with a hemoglobin of 7.4, which has increased to 10 after 2 units of packed RBC She is hemodynamically stable with no signs of overt bleeding. She has been by surgery as well for possible GI bleeding. No acute intervention recommended at this time She will benefit from parenteral iron therapy during the stay Patient can be discharged once cleared by physical therapy/surgery and neurology SCDs for DVT prophylaxis
[2021-09-10] MEDS ORDERED: SODIUM PHOSPHATE 30 MM in NA CHLORIDE 0.9% 500 ML IV SCH (14:00)
[2021-09-10] MEDS: ATORVASTATIN 20 MG TAB PO SCH (20:11)
[2021-09-10] MEDS: AMITRIPTYLINE 25 MG TAB PO SCH (20:11)
--- NOTE | 2021-09-10 20:56 | CON ---
Reason For Consultation: Consultation called because of new stroke. History Of Present Illness: Ms. Britton is a 61-year-old right-handed patient with hypertens ion, dyslipidemia, peripheral vascular disease, chronic cigarette smoking, who had a stroke 2 weeks a go. That stroke affected her right body; was in the left basal ganglia, left insula, and head of cau date. She came to [facility] on the 23 of August. She was out of the window of tPA. T he MRA identified distal left MCA M2 branch occlusion, which was the vascular territory supplying the area that was infarcted. She recovered fairly well, discharged home, did have some residual right-s ided incoordination, weakness, some difficulty with getting speech out properly and had slurred speec h with numbness on the right side. She did have aspirin, Plavix, folic acid, and continued smoking. She developed blood in the stool and became even weaker on the right side with numbness. She was fo und to be guaiac-positive in the emergency room and had more generalized weakness in addition to more right-sided weakness. Head CT scan did not show an acute ischemic hemorrhagic change such as hemorr hagic conversion; however, a repeat brain MRI done on the , which is yesterday did identify a new 5 mm acute left occipital lobe infarct along with the subacute infarct in the left basal ganglia and left insula as described above. Carotid artery study with Doppler showed 50% to 69% left internal ca rotid artery stenosis. Vertebrals and anterior grade flow. Her echocardiogram showed ejection fract ion 56%, no vegetation; this was on the 23 of August. Because of severe anemia down to 7.2, she did receive 2 units of blood and actually 7.4 on the , on August 22 it was 7.2. Following tra nsfusion, her hemoglobin today is 10.4, and she has near resolution to her baseline in terms of stren gth in the right upper and lower extremity. She does still have some mild right nasolabial fold decr eased. She has decreased sensation in the right compared to the left lower extremity more than upper extremity. Aspirin and Plavix have been held, and she is scheduled to have an upper GI evaluation. Past Medical History: As noted. Surgical History: Iliofemoral bypass. Allergies: CODEINE. Medications At Home: Elavil 25 mg at bedtime; Norvasc 5 mg daily; vitamin D3 50,000 units every 7 da y; Plavix 75 mg daily, this is prior to coming to the hospital; Flexeril 10 mg daily; losartan potass ium 25 mg daily; Protonix 40 mg daily; simvastatin 40 mg daily; aspirin 81 mg daily; folic acid 1 mg daily. Family History: Noncontributory. Social History: Smokes half pack cigarettes daily and does drink alcohol and caffeinated beverages. Review of Systems: Aside from mentioned where she has difficulty with speech, balance, coordination, right-sided weaknes s in the upper and lower extremity and face. She did not have any recent fevers, chills, nausea, vom iting, myalgias, arthralgias. She had diffuse fatigue and weakness in all extremities. Physical Examination: Vital Signs: Blood pressure 131/78, pulse 86, temperature 98.1, oxygen saturation 100%, and respirat ory rate 16 to 20. General: Ms. Britton is resting in ICU bed. She is in no acute distress. HEENT: She is normocephalic, atraumatic. Her sclerae are anicteric. Oropharynx is pink and moist. Neck: Supple. Chest: Clear. Heart: Regular. Extremities: Show no clubbing, cyanosis, or edema. Neurological: She is alert and oriented to person, place, time, and situation. She has no significa nt expressive or receptive aphasias. No obvious focal deficits on cranial nerves, except decreased r ight nasolabial fold and perhaps a subtle right visual field deficit. Sensation in the right upper e xtremity intact and the right lower extremity decreased compared to the left to light touch temperatu re. Strength intact in the right and left upper extremity despite the chronic stroke. She has recov ered well. She has good coordination with good [id number] noted on the right and on the left, and the strength is at least 4/5 in the right proximal and distal lower extremity. Coordination intact i n the upper and lower extremities. Gait, she does require some assistance, sensitive all to the righ t. Laboratory Studies: Complete blood count with differential now; white blood cell count 8.5, hemoglob in 10.4, platelets 242. INR 1.08. Her creatinine after hydration 1.06. Calcium 7.9. Her iron leve l is low at 15, transferrin percent saturation low at 3.9. Liver function studies unremarkable. C-r eactive protein elevated at 3.44. TSH elevated at 6.44. LDL cholesterol 66, HDL 47. COVID-19 test is negative. Assessment: Ms. Britton is a 61-year-old patient with hypertension, chronic cigarette smoking, and mul tiple strokes, likely thromboembolic in the left middle cerebral artery branch and also posterior cir culation stroke in the occipital region. She has 50% to 69% left internal carotid artery stenosis. She also has severe anemia from gastrointestinal bleed potentially due to the combination of the aspi rin, Plavix, and her cigarette smoking. Plan: 1.For now, we will hold off on the aspirin and Plavix combination. May restart aspirin 81 mg daily once her upper and lower GI evaluation is complete. 2.Folic acid 1 mg daily. 3.Continue with statin as indicated. 4.She may benefit from aggressive outpatient physical therapy to improve her balance, gait, coordina tion, and right upper and lower extremity strength. The patient should follow in Dr. Holliday's clin ic on Monday after discharge. JORGE/RAFY Voice ID: [id number] Report ID: [id number]
[2021-09-11] MEDS: NA CHLORIDE 0.9% 1,000 ML IV SCH (03:08)
[2021-09-11 04:37] VITALS: BMI 21.1
[2021-09-11 05:35] LABS: Lymphocytes % 9.3 % (15.3-44.8); MPV 7.4 fL (7.6-11.3); RBC Red Blood Cell Count 4.19 M/uL (3.86-4.86)
[2021-09-11 05:50] LABS: Magnesium 1.7 mg/dL (1.8-2.4); Phosphorus 2.5 mg/dL (2.5-4.9); Potassium 3.8 mmol/L (3.5-5.1)
[2021-09-11] MEDS ORDERED: Magnesium Sulfate 2gm IVPB 2 G/50 ML BAG IV ONE (06:43)
[2021-09-11] MEDS: ASPIRIN EC 81 MG TAB PO SCH (08:55)
[2021-09-11] MEDS: LOSARTAN POTASSIUM 50 MG TABLET PO SCH (08:55)
[2021-09-11] MEDS: AMLODIPINE 5 MG TAB PO SCH (08:55)
[2021-09-11] MEDS: FOLIC ACID 1 MG TABLET PO SCH (08:56)
[2021-09-11] MEDS: SOD FERRIC GLUC COMPLX/SUCROSE 250 MG in NA CHLORIDE 0.9% 250 ML IV SCH (08:57)
[2021-09-11] MEDS: CYCLOBENZAPRINE 10 MG TAB PO SCH (08:57)
[2021-09-11] MEDS ORDERED: HOME MED 1 EA UNK (Simvastatin [Simvastatin] 40 MG Tablet) PO SCH (09:00)
[2021-09-11] MEDS ORDERED: HOME MED 1 EA UNK (Losartan Potassium [Losartan Potassium] 25 MG Tablet) PO SCH (09:00)
--- NOTE | 2021-09-11 09:02 | P.PN ---
Subjective Date of Service: 09/11/21 Chief Complaint: acute CVA, UGIB Subjective: Improving (Patient is doing well. Hemodynamically stable. She can be downgraded to floor) Physical Examination - Vital Signs Temperature: 97.2 F Blood Pressure: 130/69 Pulse: 87 Respirations: 21 Pulse Ox (%): 96 - Physical Exam General: Alert, In no apparent distress, Cooperative HEENT: Atraumatic, Normocephalic Neck: Supple Respiratory: Other (Breathing unlaboured on room air) Neurological: Normal speech, Normal affect Assessment And Plan - Current Problems (Diagnosis) (1) DINA (acute kidney injury) Current Visit: Yes Status: Acute (2) UGIB (upper gastrointestinal bleed) Current Visit: Yes Status: Acute (3) AKASH (iron deficiency anemia) Current Visit: Yes Status: Chronic Qualifiers: Iron deficiency anemia type: chronic blood loss Qualified Code(s): D50.0 - Iron deficiency anemia secondary to blood loss (chronic) (4) Acute CVA (cerebrovascular accident) Current Visit: No Status: Acute (5) Hyperlipidemia Current Visit: No Status: Chronic Qualifiers: Hyperlipidemia type: unspecified Qualified Code(s): E78.5 - Hyperlipidemia, unspecified (6) Hypertension Current Visit: No Status: Chronic Qualifiers: Hypertension type: primary hypertension Qualified Code(s): I10 - Essential (primary) hypertension (7) Peripheral vascular disease Current Visit: No Status: Chronic (8) Tobacco use Current Visit: No Status: Chronic Physician Review Additional Text: 09/10/21 12:18 Assessment Patient is a 61-year-old female with a past medical history of tobacco smoking, hypertension, hyperlipidemia and a recent stroke 2 weeks ago. She is currently on dual antiplatelet therapy. She presented to the ER for evaluation of another stroke after she woke up with difficulty speaking. Her aphasia has improved since her admission. She was found to have left occipital lobe stroke on MRI. She is also being assessed for upper GI bleeding after she reported melenic stools on presentation. Of note, patient has a history of iron deficiency anemia and has been taking iron supplements before her presentation. Acute CVA Suspected upper GI bleeding DINA Hypertension Hyperlipidemia Tobacco smoking Plan: Downgrade to general floor Continue aspirin, folic acid and high intensity statin. Parenteral iron H/H stable after transfusion Unlikely she will require EGD/COL during this stay PT recommends inpatient rehab Replace Magnesium SCDs for DVT prophylaxis 09/11/21 09:02
[2021-09-11] MEDS ORDERED: D10W 250 ML IV PRN (09:19)
[2021-09-11] MEDS ORDERED: D5 0.9 NS 1,000 ML IV SCH (10:00)
[2021-09-11] MEDS: PANTOPRAZOLE INJ 80 MG in NA CHLORIDE 0.9% 250 ML IV SCH (11:12)
--- NOTE | 2021-09-11 13:05 | P.PN ---
Subjective Date of Service: 09/11/21 Chief Complaint: acute CVA, UGIB Subjective: Improving Physical Examination - Vital Signs Temperature: 97.5 F Blood Pressure: 131/59 Pulse: 83 Respirations: 16 Pulse Ox (%): 96 - Physical Exam General: Alert, In no apparent distress, Cooperative Gastrointestinal: Soft and benign Assessment And Plan - Plan 61 year old woman admitted for CVA - no evidence of acute GI bleeding @ this time, post transfusion hemoglobin has remained stable - patient can have EGD / Colonoscopy as outpatient when medically optimized - continue medical management per primary team and Dr. Holliday
[2021-09-11] MEDS ORDERED: SODIUM CHLORIDE 0.9% 10ML INJ IV PRN (13:46)
[2021-09-11] MEDS ORDERED: POTASSIUM PHOS IN 0.9 % NACL 15 MMOL/250 ML BAG IV ONE (14:30)
[2021-09-11] MEDS ORDERED: NA CHLORIDE 0.9% 50 ML ONE (14:59)
[2021-09-11] MEDS: ATORVASTATIN 20 MG TAB PO SCH (20:30)
[2021-09-11] MEDS: PANTOPRAZOLE 40 MG INJ IVP SCH (20:30)
[2021-09-11] MEDS: AMITRIPTYLINE 25 MG TAB PO SCH (20:30)
[2021-09-12 06:22] LABS: Hematocrit 33.9 % (36.0-45.0); Lymphocytes % 11.7 % (15.3-44.8); MPV 7.5 fL (7.6-11.3); RBC Red Blood Cell Count 4.43 M/uL (3.86-4.86)
[2021-09-12 06:33] LABS: Potassium 3.6 mmol/L (3.5-5.1)
[2021-09-12] MEDS: SOD FERRIC GLUC COMPLX/SUCROSE 250 MG in NA CHLORIDE 0.9% 250 ML IV SCH (08:30)
[2021-09-12] MEDS: FOLIC ACID 1 MG TABLET PO SCH (08:35)
[2021-09-12] MEDS: LOSARTAN POTASSIUM 50 MG TABLET PO SCH (08:36)
[2021-09-12] MEDS: AMLODIPINE 5 MG TAB PO SCH (08:36)
[2021-09-12] MEDS: CYCLOBENZAPRINE 10 MG TAB PO SCH (08:36)
[2021-09-12] MEDS: ASPIRIN EC 81 MG TAB PO SCH (08:38)
[2021-09-12] MEDS: PANTOPRAZOLE 40 MG INJ IVP SCH ×2 (08:38→22:20)
[2021-09-12 09:34] LABS: Anisocytosis 3+; Blood Morphology Comment NOTED (NOT SEEN); Hypochromasia 1+; Platelet Estimate ADEQ; Poikilocytosis 1+; White Blood Cell Scan OK (OK)
[2021-09-12 09:35] LABS: Burr Cells 2+
[2021-09-12] MEDS ORDERED: POTASSIUM CL SA 10 MEQ TAB PO ONE (12:45)
[2021-09-12] MEDS ORDERED: MAGNESIUM OXIDE 400 MG TAB PO ONE (12:45)
--- NOTE | 2021-09-12 12:47 | P.PN ---
Subjective Date of Service: 09/12/21 Chief Complaint: acute CVA, UGIB Subjective: No C/O voiced, Improving Physical Examination - Vital Signs Temperature: 97.7 F Blood Pressure: 166/75 Pulse: 84 Respirations: 18 Pulse Ox (%): 99 - Physical Exam General: Alert, In no apparent distress, Cooperative HEENT: Atraumatic, Normocephalic Musculoskeletal: No clubbing, No swelling, No contractures, No erythema Neurological: Normal speech, Normal affect Assessment And Plan - Current Problems (Diagnosis) (1) DINA (acute kidney injury) Current Visit: Yes Status: Acute (2) UGIB (upper gastrointestinal bleed) Current Visit: Yes Status: Acute (3) AKASH (iron deficiency anemia) Current Visit: Yes Status: Chronic Qualifiers: Iron deficiency anemia type: chronic blood loss Qualified Code(s): D50.0 - Iron deficiency anemia secondary to blood loss (chronic) (4) Acute CVA (cerebrovascular accident) Current Visit: No Status: Acute (5) Hyperlipidemia Current Visit: No Status: Chronic Qualifiers: Hyperlipidemia type: unspecified Qualified Code(s): E78.5 - Hyperlipidemia, unspecified (6) Hypertension Current Visit: No Status: Chronic Qualifiers: Hypertension type: primary hypertension Qualified Code(s): I10 - Essential (primary) hypertension (7) Peripheral vascular disease Current Visit: No Status: Chronic (8) Tobacco use Current Visit: No Status: Chronic Physician Review Additional Text: 09/10/21 12:18 Assessment Patient is a 61-year-old female with a past medical history of tobacco smoking, hypertension, hyperlipidemia and a recent stroke 2 weeks ago. She is currently on dual antiplatelet therapy. She presented to the ER for evaluation of another stroke after she woke up with difficulty speaking. Her aphasia has improved since her admission. She was found to have left occipital lobe stroke on MRI. She is also being assessed for upper GI bleeding after she reported melenic stools on presentation. Of note, patient has a history of iron deficiency anemia and has been taking iron supplements before her presentation. Acute CVA Suspected upper GI bleeding DINA Hypertension Hyperlipidemia Tobacco smoking Plan: Continue aspirin, folic acid and high intensity statin. Day 3 of Parenteral iron Follow up iron panel Unlikely she will require EGD/COL during this stay PT recommends inpatient rehab SCDs for DVT prophylaxis
[2021-09-12] MEDS: AMITRIPTYLINE 25 MG TAB PO SCH (22:20)
[2021-09-12] MEDS: ATORVASTATIN 20 MG TAB PO SCH (22:20)
[2021-09-13 03:54] LABS: Absolute Lymphocytes (CBC) 1.1 K/uL (0.7-4.9); Hematocrit 34.1 % (36.0-45.0); Lymphocytes % 12.7 % (15.3-44.8); MPV 8.2 fL (7.6-11.3)
[2021-09-13 04:19] LABS: Potassium 4.2 mmol/L (3.5-5.1)
[2021-09-13] MEDS: FOLIC ACID 1 MG TABLET PO SCH (09:00)
[2021-09-13] MEDS: LOSARTAN POTASSIUM 50 MG TABLET PO SCH (09:00)
[2021-09-13] MEDS: AMLODIPINE 5 MG TAB PO SCH (09:00)
[2021-09-13] MEDS: CYCLOBENZAPRINE 10 MG TAB PO SCH (09:00)
[2021-09-13] MEDS: ASPIRIN EC 81 MG TAB PO SCH (09:00)
--- NOTE | 2021-09-13 09:19 | P.PN ---
Subjective Date of Service: 09/12/21 Chief Complaint: acute CVA, UGIB Subjective: Improving Physical Examination - Vital Signs Temperature: 96.7 F Blood Pressure: 143/67 Pulse: 83 Respirations: 15 Pulse Ox (%): 98 - Physical Exam General: Alert, In no apparent distress, Oriented x3, Cooperative Gastrointestinal: Soft and benign, Non-distended, No ascites, No tenderness, No masses Assessment And Plan - Plan 61 year old woman admitted for CVA - no evidence of acute GI bleeding @ this time, post transfusion hemoglobin has remained stable - patient can have EGD / Colonoscopy as outpatient when medically optimized - continue medical management per primary team and Dr. Holliday
--- NOTE | 2021-09-13 09:20 | P.PN ---
Subjective Date of Service: 09/13/21 Chief Complaint: acute CVA, UGIB Subjective: Improving (better speech today, more strength, normal bowel function, no bleeding) Physical Examination - Vital Signs Temperature: 96.7 F Blood Pressure: 143/67 Pulse: 83 Respirations: 15 Pulse Ox (%): 98 - Physical Exam General: Alert, In no apparent distress, Oriented x3, Cooperative Respiratory: Normal air movement Gastrointestinal: Soft and benign, Non-distended, No ascites, No tenderness, No masses, No rebound, No guarding Assessment And Plan - Plan 61 year old woman admitted for CVA - no evidence of acute GI bleeding @ this time, post transfusion hemoglobin has remained stable - patient can have EGD / Colonoscopy as outpatient when medically optimized - continue medical management per primary team and Dr. Holliday
[2021-09-13] MEDS: PANTOPRAZOLE 40 MG INJ IVP SCH ×2 (09:30→21:15)
[2021-09-13] MEDS: SOD FERRIC GLUC COMPLX/SUCROSE 250 MG in NA CHLORIDE 0.9% 250 ML IV SCH (11:13)
[2021-09-13 11:32] VITALS: O2SAT 98
[2021-09-13 19:08] LABS: SARS-COV-2 RT PCR NEGATIVE (NEGATIVE)
[2021-09-13] MEDS ORDERED: AMLODIPINE 5 MG TAB PO SCH (21:00)
[2021-09-13] MEDS ORDERED: FOLIC ACID 1 MG TABLET PO SCH (21:00)
[2021-09-13] MEDS ORDERED: LOSARTAN POTASSIUM 50 MG TABLET PO SCH (21:00)
[2021-09-13] MEDS ORDERED: CYCLOBENZAPRINE 10 MG TAB PO SCH (21:00)
[2021-09-13] MEDS ORDERED: ASPIRIN EC 81 MG TAB PO SCH (21:00)
[2021-09-13] MEDS: AMITRIPTYLINE 25 MG TAB PO SCH (21:15)
[2021-09-13] MEDS: ATORVASTATIN 20 MG TAB PO SCH (21:15)
[2021-09-13 22:13] VITALS: BP 138/72; TEMP 97.7
== END 2021-09-13 22:40 | DRG 65 ==
LOC: ER 13:46 → ERHOLD 17:50 → 3RD-ICU 20:31 → 2ND 09-11 10:41
PROVIDERS: ADMIT Internal Medicine; ATTEND Internal Medicine
PROC: 30233N1 Transfusion of Nonautologous Red Blood Cells into Peripheral Vein, Percutaneous Approach (ICD-10-PCS; principal; 2021-09-09)
DX: I63.9 Cerebral infarction, unspecified (principal); N17.9 Acute kidney failure, unspecified; K92.1 Melena; I69.351 Hemiplegia and hemiparesis following cerebral infarction affecting right dominant side; R47.01 Aphasia; I10 Essential (primary) hypertension; E78.5 Hyperlipidemia, unspecified; I73.9 Peripheral vascular disease, unspecified; D50.0 Iron deficiency anemia secondary to blood loss (chronic); F17.210 Nicotine dependence, cigarettes, uncomplicated; Z20.822 Contact with and (suspected) exposure to COVID-19
CPT/HCPCS: 0240U; 36415; 36430; 70450; 70551; 71045; 80048; 80053; 80061; 80076; 82565; 82728; 82947; 83540; 83735; 83880; 84100; 84132; 84439; 84443; 84466; 84484; 85025; 85610; 85652; 86140; 86850; 86900; 86901; 92610; 93005; 93880; 96365; 96366; 96375; 97110; 97112; 97116; 97161; 97530; 99285; C9113; J2405; J2916; J3475; J7030; J7040; J7042; J7050; P9016; U0003

== ENCOUNTER 2021-09-13 10:04 | Inpatient (IN) | payer OTHER ==
--- NOTE | 2021-09-13 16:24 | R.PREADM ---
PRE-ADMISSION SCREENING FORM SCREENING DATE AND TIME 09/13/2021 09:15 (WATER RESOURCE MANAGER) ANTICIPATED REHAB ADMISSION DATE 09/15/2021 REFERRING FACILITY [facility] REFERRAL DATE AND TIME 09/13/2021 09:15 (WATER RESOURCE MANAGER) REFERRAL ROOM# 220 ACUTE ADMIT DATE 09/09/2021 Previous Rehabilitation(s): No. ACUTE INTELLIGENCE OFFICER/DC SAP BUSINESS OBJECTS CONSULTANT [place] ATTENDING PHYSICIAN [facility] REFERRING PHYSICIAN [facility] REHAB FACILITY [facility] CLINICAL LIAISON Arvind Navarro PHYSICIAN REVIEWER Dr. Francis Holliday M.D. MR# [id number] NAME RAMSES POON ADDRESS [address] [place] [address] PHONE [facility] [id number] DATE OF 1960 AGE 61 SSN# [id number] GENDER female MARITAL STATUS PREF. LANGUAGE (IF NON-GUINEAN) Occitan ADMIT FROM 02 - [facility] PRE-HOSPITAL LIVING SETTING 01 - Home (private home/apt. board/care, assisted living, intermediate, transitional living) HOME TYPE AND DETAILS Type of home: single family house # of steps to enter the residence: 0 # of levels in the residence: 1 # of steps within the residence: 0 PRE-HOSPITAL LIVING WITH Family/Relatives FAMILY SUPPORT Yes PRIMARY FAMILY CONTACT NAME HARVEY ROTH PRIMARY FAMILY CONTACT PHONE PRIMARY FAMILY CONTACT RELATIONSHIP Spouse PHONE PRIMARY FAMILY CONTACT ON ADM.? no IS PRIMARY FAMILY CONTACT AUTH. REP.? no 1ST EMERGENCY CONTACT HARVEY ROTH 1ST CONTACT PHONE 1ST CONTACT RELATIONSHIP Spouse PHONE 1ST CONTACT ON ADM. no IS 1ST CONTACT AUTH. REP.? no PHONE 2ND CONTACT ON ADM.? 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 No ANOTHER REPUBLICAN RESPONSIBLE? No PRIMARY REHAB/ACUTE DIAGNOSIS: ACUTE CVA ONSET DATE 09/09/2021 REHAB IMPAIRMENT CATEGORY (MADDIE): 01 Stroke (STR) MEETS 60% rule AFFECTED EXTREMITIES: RLE, and RUE PRIMARY DIAGNOSIS-RELATED SURGERIES: N/A INTERVENTIONS: - HYPERTENSION Blood pressure will be regularly assessed and medications administered as per physician recommendatio ns. - CHF monitoring of patient symptoms and medication management by physician RISK FOR COMPLICATIONS: - CVA pt's blood pressures have been inconsistent and require monitoring and medication management as inidi cated by physician. - CARDIC right sided weakness - HYPERTENSION WEAKNESS SUMMARY OF ACUTE HOSPITALIZATION: Pt. is a 61 yo Right-handed female. On 09/09/2021 Pt. presented to [facility] with sudden onset of right-side weakness. On 09/09/2021 she was admitted to [facility] with diagnosis ACUTE CVA. Her impairment category is Stroke 01 - Right Body (Left Brain) (01.2). Pre-morbidly, Pt. was independent/mod-I in Locomotion, Safety Awareness, Social Cognition, and Balanc e; and she had good Transfers Control, Sphincter Control, Self-Care, Communication, and Endurance. Currently, she has deficits of Locomotion, Social Cognition, Safety Awareness, Balance, Transfers Con trol, Sphincter Control, Self-Care, Communication, and Endurance. Pt. is now referred to [facility] for acute in-patient rehabilitation in order to maximize patient's functional independence in activities of daily living, strength, ROM, and mobi lity. Patient has realistic goal of being discharged at assistance level 7-Ind to reside at Home with Fami ly/Relatives. PAST MEDICAL HISTORY HTN HLD PVD CVA APHASIA WEAKNESS NUMBNESS GAIT ABNORMALITIES SMOKES MEDICATION ALLERGIES: CODEINE ENVIRONMENTAL ALLERGIES: - Substance Allergies None Known - Other Allergies None Known CODE STATUS: Full code WEIGHT/HEIGHT/BMI: WEIGHT 107 lbs HEIGHT 5' 1" BMI 20.2 DIET: - Diet Type Regular - Diet - Solid Texture Regular - Diet - Liquid Texture Regular - Tube Feed N/A SKIN DIAGRAM: on Head; extent - small; stage - NS(Not Stageable). Treatment - Per Physician's Orders. REVIEW OF SYSTEMS: - Gen Alert and awake Lying in bed No apparent distress Oriented to: person, time, and place - Vital Signs Temperature: 97.0 F SBP/DBP: 143/67 Pulse: 83 Resp: 15 Vital signs stable, afebrile - CVS RRR VITAL SIGNS Temperature: 97.0 F SBP/DBP: 143/67 Pulse: 83 Resp: 15 Vital signs stable, afebrile MEDICATIONS/TREATMENT: Other- See attached MAR (Medication Administration Record). CURRENT SPHINCTER CONTROL: Pre-hospital bladder status: unspecified # of bladder accidents in the last 7 days prior to screenin Pre-hospital bowel status: unspecified # of bowel accidents in the last 7 days prior to screenin Last Bowel Movement Date: 09/13/2021 CURRENT LOCOMOTION STATUS: distance walked 260 feet with rolling walker DETAILED CURRENT FUNCTIONAL STATUS: - Bladder accident frequency: 7-Ind - No accidents in the past 7 days - Bowel accident frequency: 7-Ind - No accidents in the past 7 days - Walking score based on distance walked: 0(N/A) score based on distance walked: 3(>=150ft) - Wheelchair score based on distance traveled: 0(N/A) QI SCORES: - Self-Care A. Eating 03-Partial/moderate assistance B. Oral hygiene 03-Partial/moderate assistance C. Toileting hygiene 03-Partial/moderate assistance E. Shower/bathe self 03-Partial/moderate assistance F. Upper body dressing 03-Partial/moderate assistance G. Lower body dressing 03-Partial/moderate assistance H. Putting on/taking off footwear 03-Partial/moderate assistance - Mobility A. Roll left and right 03-Partial/moderate assistance B. Sit to lying 03-Partial/moderate assistance C. Lying to sitting on side of bed 03-Partial/moderate assistance D. Sit to stand 03-Partial/moderate assistance E. Chair/[id number] transfer 03-Partial/moderate assistance F. Toilet transfer 03-Partial/moderate assistance G. Car transfer 88-Not attempted due to medical condition or safety concerns I. Walk 10 feet 03-Partial/moderate assistance J. Walk 50 feet with two turns 88-Not attempted due to medical condition or safety concerns K. Walk 150 feet 88-Not attempted due to medical condition or safety concerns L. Walking 10 feet on uneven surfaces 88-Not attempted due to medical condition or safety concerns M. 1 step (curb) 88-Not attempted due to medical condition or safety concerns N. 4 steps 88-Not attempted due to medical condition or safety concerns O. 12 steps 88-Not attempted due to medical condition or safety concerns P. Picking up object 88-Not attempted due to medical condition or safety concerns R. Wheel 50 feet with two turns 88-Not attempted due to medical condition or safety concerns S. Wheel 150 feet 88-Not attempted due to medical condition or safety concerns - Bladder and Bowel Bladder continence Bowel continence - Endurance Fair - Balance Fair - Safety Awareness Fair CURRENT FUNC. DEFICITS: Self-Care, Mobility, Endurance, Balance, and Safety Awareness CURRENT / PREVIOUS ASSISTIVE DEVICES: Rolling Walker HISTORY OF FALLS. HAS THE PATIENT HAD TWO OR MORE FALLS IN THE PAST YEAR OR ANY FALL WITH INJURY IN T HE PAST YEAR?: No PRIOR SURGERY. DID THE PATIENT HAVE MAJOR SURGERY DURING THE 100 DAYS PRIOR TO ADMISSION?: No THERAPY NOTES FROM ACUTE CARE: Attached. SPECIAL NEEDS: - Safety Concerns Fall precautions needed due to Poor balance Skin breakdown precautions needed due to skin breakdown risk PRECAUTIONS: - Weight Bearing Precaution WBAT right LE - Fall Precaution Bed alarm TABS alarm Wheel chair alarm PATIENT NEEDS ACTIVE AND ONGOING THERAPEUTIC INTERVENTION OF MULTIPLE THERAPY DISCIPLINES, INCLUDING: - Dietary and Nutrition Adequate Nutrition. Nutritional Education. Nutritional Supplements. Evaluate and Treat. - Occupational Therapy Cognitive Retraining. Patient needs Occupational Therapy for a daily minimum of 1.5 hours at least 5 out of 7 days, to improve Activities of Daily Living, including: Eating, Grooming, Bathing, Dressing, Toileting, Toilet Transfers, Community Reintegration, Higher functional activities, Adaptive Equipme nt, Splinting, Household Tasks, and Other activities as determined. Evaluate and Treat. Patient/Famil y Education. Safety Awareness. Adaptive Equipment. Transfer Training. Household Tasks. - Speech Therapy Cognitive Training. Evaluate and Treat. Expressive Language Skills. Memory Strategies. Patient needs Speech Therapy for a daily minimum of 1.5 hours at least 5 out of 7 days, to improve: Swallowing, Cog nition, Language Skills, and Compensatory Strategies. Receptive Language Skills. Speech Intelligibili ty Training. - Physical Therapy Patient needs Physical Therapy for a daily minimum of 1.5 hours at least 5 out of 7 days, to improve: Mobility, Strengthening, Transfers, Stretching, ROM, Endurance, Ability to manage stairs, Gait, and Balance. Evaluate and Treat. Mobility Training. Safety Awareness. Gait Training. Balance Training. Tr ansfer Training. Patient/Family Education. PATIENT NEEDS CLOSE MEDICAL SUPERVISION BY A REHABILITATION PHYSICIAN FOR: Coordination of Treatment Team Wound Care PATIENT REQUIRES 24X7 REHAB NURSING FOR MEDICAL AND FUNCTIONAL MGT. OF THE FOLLOWING DEFICITS: Disease Management Medication Management Patient requires 24x7 Rehabilitation Nursing for: Pain Issues, Identifying and preventing risk factor s, Monitoring and reporting current medical conditions, Assisting with ambulation and transfer, Antionette ting with all ADL-s, Teaching patients about disease process and medications, Family teaching, Provid ing safe environment, Bowel and Bladder Issues, Skin Integrity, and Medication Management Patient/Family Education Providing Safe Environment PATIENT REQUIRES INTENSIVE, COORDINATED INTERDISCIPLINARY APPROACH TO REHAB: Arranging Home Equipment/Services Discharge Planning Family Intervention/Training Patient needs Dietary and Nutrition Services for: Adequate Nutrition, Nutritional Supplements, and Nu tritional Education Patient needs Senior Formulation Scientist and/or Case Management for: Discharge Planning, Arranging Home Equipmen t or Services, and Family Interventions Senior Formulation Scientist/Case Management PATIENT REHAB POTENTIAL: Marisa POON is able and expected to receive 3 hours of individualized therapy daily on at least 5 of mitchell ry 7 days Marisa Oliver prognosis for significant practical improvement within a reasonable period of time appears Good Expected level of measurable improvement will be of a practical value to Marisa Oliver functional capaci ty or adaptations to impairments Has a viable Discharge Plan Medically appropriate; condition is sufficiently stable to participate in intensive rehab program DISCHARGE PLAN: - Estimated Length of Stay (days) 17. - Consensus on plan Discharge plan has been discussed with primary caregiver. Patient/Family is in agreement with the bandar n. Primary caregiver is in agreement with the plan. - Patient/Family Goals Return home independently. - Planned Living Setting Upon Discharge Home, to live with Family/Relatives. Transitional Living. RECOMMENDED CARE LEVEL: IRF RECOMMENDATION DETAILS: Recommended Admission to Comprehensive Rehabilitation Program to Increase Functional [place] SCREENER'S COMPLETENESS CONFIRMATION: - Screening Confirmation The patient data collection on this preadmission screening form is finished PHYSICIANS REVIEW AND ADMISSION DETERMINATION Admit - Based on my review of the Pre-Admission Screening results, in my medical judgment and experie nce, I concur with the findings and recommend admission to [facility], as this patient requires an IRF level of care. SIGNATURE PANEL: Bench Press Operator - [electronically] signed by Arvind Navarro on 09/13/2021 at 15:02 (WATER RESOURCE MANAGER) Bench Press Operator - [electronically] signed by Gale Bush on 09/13/2021 at 15:24 (WATER RESOURCE MANAGER) Physician Reviewer - [electronically] signed by Dr. Francis Holliday M.D. on 09/13/2021 at 16:23 (WATER RESOURCE MANAGER )
--- OUTSIDE RECORDS SUMMARY | 2021-09-13 22:46 | XMS REPORT | Continuity of Care Document ---
:1960 Author Organization [facility] Address [address] [place] [address] [address] [place] [address] Care Team Providers Name Role Phone LUIS ARMANDO Attending Clinician Unavailable Netta Penaloza Attending Clinician [phone] Gina Awad Attending Clinician [phone] RICK Attending Clinician Unavailable [email or web address] Attending Clinician Unavailable MIA Attending Clinician Unavailable ERIKA_Edy Admitting Clinician Unavailable luis armando Admitting Clinician Unavailable MIA Admitting Clinician Unavailable Payers Payer Name Policy Type Policy Number Effective Date Expiration Date [facility] ADMINISTRATIVE [id number] CONCEPTS - LIMITED MEDICAL PLAN [facility] ([facility]) [place] [facility] [id number] 2017 2021 ([facility]) 00:00:00 00:00:[address] [facility] [id number] [facility] [id number] 2017 00:00:00 Problems This patient has no known problems. Allergies, Adverse Reactions, Alerts This patient has no known allergies or adverse reactions. Medications This patient has no known medications. Procedures This patient has no known procedures. Encounters Start End Encounter Admission Attending Care Care Encounter Source Date/Time Date/Time Type Type Clinicians Facility Department ID 2021-09-07 2021-09-07 Outpatient LUIS ARMANDO [facility] [id number] [place] 09:30:00 09:30:[address] [place] [address] i [facility] 2021-09-07 2021-09-07 [facility] [id number] 00:00:00 00:00:00 Aidan [id number] [id number] 2021-09-06 2021-09-06 Outpatient KEFFER_A [facility] [id number] [place] 12:46:00 12:46:00 228 [facility] 2021-09-06 2021-09-06 Outpatient Rozina Awad [facility] [id number] 00:00:00 00:00:00 Gina [id number] 2021-08-26 2021-08-26 Outpatient KEFFER_A [facility] [id number] [place] 06:20:00 06:20:00 217 [facility] 2021-08-26 2021-08-26 Outpatient Rozina Awad [facility] [id number] 00:00:00 00:00:00 Gina [id number] 2021-08-09 2021-08-09 Outpatient KEFFER_A [facility] [id number] [place] 10:03:00 10:03:00 131 [facility] 2021-07-30 2021-07-30 Outpatient KEFFER_A [facility] [id number] [place] 05:21:00 05:21:00 121 [facility] 2021-06-22 2021-06-22 Outpatient KEFFER_A [facility] [id number] [place] 04:51:00 04:51:00 214 [facility] 2021-06-22 2021-06-22 Outpatient Rozina Awad [facility] [id number] 00:00:00 00:00:00 Gina [id number] 2021-04-14 2021-04-14 Outpatient KEFFER_A [facility] [id number] [place] 08:23:00 08:23:00 006 [facility] 2021-04-13 2021-04-13 Outpatient KEFFER_A [facility] [id number] [place] 06:34:00 06:34:00 005 [facility] 2021-04-13 2021-04-13 Outpatient Rozina Awad [facility] [id number] 00:00:00 00:00:00 Gina [id number] 2021-01-28 2021-01-28 Outpatient CHICO CABRERA [facility] [id number] [place] 00:00:00 00:00:[address] 2020-12-24 2020-12-24 Outpatient LECHICO [facility] [id number] [place] 00:00:00 00:00:[id number] 2020-11-26 2020-11-26 Outpatient KEJONAS_Edy [facility] [id number] [place] 06:25:00 06:25:00 520 [facility] 2020-11-19 2020-11-19 Outpatient THEEFFER_Edy [facility] [id number] [place] 09:31:00 09:31:00 513 [facility] 2020-11-19 2020-11-19 Outpatient Ca, [facility] [id number] 00:00:00 00:00:00 Aidan [id number] [place] [id number] 2020-10-29 2020-10-29 Outpatient CHICO CABRERA [facility] [id number] [place] 00:00:00 00:00:[address] 2020-10-28 2020-10-28 Outpatient LECHICO [facility] [id number] [place] 00:00:00 00:00:[address] 2020-10-28 2020-10-28 Outpatient LECHICO [facility] [id number] [place] 00:00:00 00:00:[address] 2020-10-28 2020-10-28 Outpatient LECHICO [facility] [id number] [place] 00:00:00 00:00:[address] 2020-10-15 2020-10-15 Outpatient ERIKA_Edy [facility] [id number] [place] 01:02:00 01:02:00 408 [facility] 2020-10-02 2020-10-02 Outpatient KEFFER_A [facility] [id number] [place] 03:57:00 03:57:00 326 [facility] 2020-09-08 2020-09-08 Outpatient KEFFER_A [facility] [id number] [place] 12:01:00 12:01:00 302 [facility] 2020-08-27 2020-08-27 Outpatient KEFFER_A [facility] [id number] [place] 01:02:00 01:02:00 218 [facility] 2020-08-20 2020-08-20 Outpatient KEFFER_A [facility] [id number] [place] 09:14:00 09:14:00 211 [facility] 2020-08-20 2020-08-20 Outpatient Ca [facility] [id number] 00:00:00 00:00:00 Aidan [id number] [place] [id number] 2020-08-05 2020-08-05 Outpatient KEFFER_A [facility] [id number] [place] 11:55:00 11:55:00 127 [facility] 2020-08-05 2020-08-05 Outpatient Rozina Awad [facility] [id number] 00:00:00 00:00:00 Gina [id number] 2020-08-03 2020-08-03 Outpatient KEFFER_A [facility] [id number] [place] 03:52:00 03:52:00 125 [facility] 2020-07-21 2020-07-21 Outpatient KEFFER_A [facility] [id number] [place] 09:57:00 09:57:00 112 [facility] 2020-07-21 2020-07-21 Outpatient Ca [facility] [id number] 00:00:00 00:00:00 Aidan [id number] [place] [id number] 2020-07-04 2020-07-04 Outpatient ERIKA_A [facility] [id number] [place] 01:01:00 01:01:00 226 [facility] 2020-06-16 2020-06-16 Outpatient Yrnmumtazinna [facility] [id number] 00:00:00 00:00:00 Aidan [id number] [place] [id number] 2020-05-27 2020-05-27 Outpatient kejonas_a [facility] [id number] [place] 02:34:00 02:34:00 [id number] 2020-02-11 2020-02-11 Outpatient EUSEBIA TRAN [facility] [id number] [place] 12:25:00 12:25:00 SSA [id number] da [facility] 2019-09-03 2019-09-03 Outpatient CHICO CABRERA [facility] [id number] [place] 00:00:00 00:00:[id number] Results This patient has no known results.
[2021-09-13 23:38] VITALS: BMI 20.9
[2021-09-14 04:48] LABS: Hematocrit 35.4 % (36.0-45.0); Lymphocytes % 10.8 % (15.3-44.8); RBC Red Blood Cell Count 4.58 M/uL (3.86-4.86)
[2021-09-14 05:04] LABS: Albumin 3.2 g/dL (3.4-5.0); Magnesium 2.2 mg/dL (1.8-2.4); Potassium 4.2 mmol/L (3.5-5.1); Prealbumin 15.9 mg/dL (20-40)
[2021-09-14 05:16] LABS: Anisocytosis 3+; Blood Morphology Comment NOTED (NOT SEEN); Platelet Estimate ADEQ; White Blood Cell Scan OK (OK)
[2021-09-14] MEDS: PANTOPRAZOLE 40MG TABLET PO SCH (05:26)
[2021-09-14] MEDS: AMLODIPINE 5 MG TAB PO SCH (08:22)
[2021-09-14] MEDS: ASPIRIN 81 MG CHEWABLE TABLET PO SCH (08:22)
[2021-09-14] MEDS: FOLIC ACID 1 MG TABLET PO SCH (08:22)
[2021-09-14] MEDS: NA CHLORIDE 0.9% 1,000 ML IV SCH (16:51)
[2021-09-14 17:00] LABS: Urine Appearance CLOUDY (Clear); Urine Blood 3+ (Negative); Urine Color DK YELLOW (Yellow); Urine Glucose NEGATIVE (Negative); Urine Protein 3+ (Negative); Urine Specific Gravity 1.025 (1.005-1.030); Urine pH 5.5 (5.0-7.0)
--- NOTE | 2021-09-14 17:03 | R.HP ---
HISTORY AND PHYSICAL FACILITY: [facility] ENCOUNTER DATE AND TIME: 09/14/2021 16:45 (CAN PUSHER) MR#: [id number] NAME RAMSES POON ADDRESS: [address] [place] [address] RO[address] [facility] CITY: [place]IP [address] PHONE: DATE OF : 1960 AGE: 61 SSN# [id number] GENDER: Female MARITAL STATUS PRE-HOSPITAL LIVING SETTING 01 - Home (private home/apt. board/care, assisted living, care home, transitional living) PRE-HOSPITAL LIVING WITH Family/Relatives ENCOUNTER PHYSICIAN: Dr. Francis Holliday M.D. REFERRING DOCTOR: AMIE SUTTON DATE OF ADMISSION: 09/13/2021 22:43 (CAN PUSHER) REFERRING FACILITY [facility] HOME TYPE AND DETAILS: Type of home: single family house # of steps to enter the residence: 0 # of levels in the residence: 1 # of steps within the residence: 0 ONSET DATE: 09/09/2021 PRIMARY DIAGNOSIS-RELATED SURGERIES: N/A HISTORY OF PRESENT ILLNESS (HPI): Pt. is a 61 yo Right-handed female. On 09/09/2021 Pt. presented to [facility] with sudden onset of right-side weakness. On 09/09/2021 she was admitted to [facility] with diagnosis ACUTE CVA. Her impairment category is Stroke 01 - Right Body (Left Brain) (01.2). Pre-morbidly, Pt. was independent/mod-I in Locomotion, Safety Awareness, Social Cognition, and Balanc e; and she had good Transfers Control, Sphincter Control, Self-Care, Communication, and Endurance. Currently, she has deficits of Locomotion, Social Cognition, Safety Awareness, Balance, Transfers Con trol, Sphincter Control, Self-Care, Communication, and Endurance. Pt. is now referred to [facility] for acute in-patient rehabilitation in order to maximize patient's functional independence in activities of daily living, strength, ROM, and mobi lity. Patient has realistic goal of being discharged at assistance level 7-Ind to reside at Home with Fami ly/Relatives. MEDICATION ALLERGIES: CODEINE ENVIRONMENTAL ALLERGIES: - Substance Allergies None Known - Other Allergies None Known PAST MEDICAL HISTORY: HTN HLD PVD CVA APHASIA WEAKNESS NUMBNESS GAIT ABNORMALITIES SMOKES SOCIAL HISTORY: - Home Living Family/Relatives REVIEW OF SYSTEMS: - Gen No Chills Fatigue No Fever - Eyes No Double Vision No itchiness - ENMT Difficulty Swallowing - CVS No Chest Discomfort No Chest Pain Fatigue No Weight Gain - Resp No Cough No Shortness of Breath - GI Continent No Abdominal Pain No Constipation No Diarrhea - Continent No Kidney Pain No Painful Urination No Urinary Urgency - MSK No Joint Pain Muscle Cramps Stiffness - Skin No Itching No Rash No Suspicious Lesions - Neuro Coordination Difficulty No Difficulty with Concentration No Memory Loss No Seizures Weakness - Psych No Anxiety No Depression No HIV Exposure No Persistent Infections No Seasonal Allergies - Endo No Cold/Heat Intolerance No Excessive Hunger No Excessive Thirst No Excessive Urination PHYSICAL EXAM - Gen Alert and awake Lying in bed No apparent distress Oriented to: person, time, and place - Skin No skin breakdown. Normacephalic - Eyes No abnormalities - ENMT No abnormalities - Neck No abnormalities - CVS RRR - Chest No abnormalities - Abd Soft - GI Non distended Deferred - No abnormalities - Ext No significant edema - MSK 4+/5 weakness in right upper and lower extremities - Neuro 4/5 strength right upper and lower extremities. - Psych No abnormalities VITAL SIGNS Temperature: 97.8 F SBP/DBP: 142/75 Pulse: 87 Resp: 16 NURSING: - Shower allowing shower - Bladder care per protocol - Skin care per protocol PRECAUTIONS: - Weight Bearing Precaution WBAT right LE - Fall Precaution Bed alarm TABS alarm Wheel chair alarm ACTIVITIES OOB only with supervision QI SCORES: - Self-Care A. Eating 03-Partial/moderate assistance B. Oral hygiene 03-Partial/moderate assistance C. Toileting hygiene 03-Partial/moderate assistance E. Shower/bathe self 03-Partial/moderate assistance F. Upper body dressing 03-Partial/moderate assistance G. Lower body dressing 03-Partial/moderate assistance H. Putting on/taking off footwear 03-Partial/moderate assistance - Mobility A. Roll left and right 03-Partial/moderate assistance B. Sit to lying 03-Partial/moderate assistance C. Lying to sitting on side of bed 03-Partial/moderate assistance D. Sit to stand 03-Partial/moderate assistance E. Chair/qhb-[id number]-azqpv transfer 03-Partial/moderate assistance F. Toilet transfer 03-Partial/moderate assistance G. Car transfer 88-Not attempted due to medical condition or safety concerns I. Walk 10 feet 03-Partial/moderate assistance J. Walk 50 feet with two turns 88-Not attempted due to medical condition or safety concerns K. Walk 150 feet 88-Not attempted due to medical condition or safety concerns L. Walking 10 feet on uneven surfaces 88-Not attempted due to medical condition or safety concerns M. 1 step (curb) 88-Not attempted due to medical condition or safety concerns N. 4 steps 88-Not attempted due to medical condition or safety concerns O. 12 steps 88-Not attempted due to medical condition or safety concerns P. Picking up object 88-Not attempted due to medical condition or safety concerns R. Wheel 50 feet with two turns 88-Not attempted due to medical condition or safety concerns S. Wheel 150 feet 88-Not attempted due to medical condition or safety concerns - Bladder and Bowel Bladder continence Bowel continence - Endurance Fair - Balance Fair - Safety Awareness Fair CURRENT FUNC. DEFICITS: Self-Care, Mobility, Endurance, Balance, and Safety Awareness MEDICATIONS: - Other See attached MAR (Medication Administration Record) ASSESSMENT: Pt. is a 61 yo Right-handed female.On 09/09/2021 Pt. presented to [facility] with sudden onset of right-side weakness.On 09/09/2021 she was admitted to [facility] with diagnosi s ACUTE CVA.Her impairment category is Stroke 01 - Right Body (Left Brain) (01.2).Pre-morbidly, Pt. was independent/mod-I in Locomotion, Safety Awareness, Social Cognition, and Balance; and she had goo d Transfers Control, Sphincter Control, Self-Care, Communication, and Endurance.Currently, she has de ficits of Locomotion, Social Cognition, Safety Awareness, Balance, Transfers Control, Sphincter Contr ol, Self-Care, Communication, and Endurance.Pt. is now referred to [facility] for acute in-patient rehabilitation in order to maximize patient's functional independence in activit ies of daily living, strength, ROM, and mobility.- Rehab Goal Patient has realistic goal of being discharged at assistance level 7-Ind to reside at Home with Fami ly/Relatives. for Dementia, TBI, Stroke, or others - Physical Therapy Gait dysfunction - to improve, our physical therapists will perform initial evaluation of pt's status upon admission and devise an individualized program for Gait Training, and Wheel Chair mobility Inability to transfer - to improve, our physical therapists will perform initial evaluation of pt's s tatus upon admission and devise an individualized program for Bed mobility Need for home safety evaluation - to improve, our physical therapists will perform initial evaluation of pt's status upon admission and devise an individualized program for Home Evaluation Need in caregiver upon discharge - to improve, our physical therapists will perform initial evaluatio n of pt's status upon admission and devise an individualized program for Caregiver Training New precaution - to improve, our physical therapists will perform initial evaluation of pt's status u tyshawn admission and devise an individualized program for Patient precaution education Edema - to improve, our physical therapists will perform initial evaluation of pt's status upon admi ssion and devise an individualized program for Elevation Training, and Lymphedema Therapy Poor balance - to improve, our physical therapists will perform initial evaluation of pt's status upo n admission and devise an individualized program for Balance Training Poor endurance - to improve, our physical therapists will perform initial evaluation of pt's status u tyshawn admission and devise an individualized program for Endurance Training Weakness - to improve, our physical therapists will perform initial evaluation of pt's status upon ad mission and devise an individualized program for Aquatic Therapy, Neuromuscular Reeducation, and Stre ngthening Achieving independence - to improve, our physical therapists will perform initial evaluation of pt's status upon admission and devise an individualized program for Community Reintegration Activities - Occupational Therapy ADL deficits - to improve, our occupation therapists will perform initial evaluation of pt's status u tyshawn admission and devise an individualized program for Bathing, Bed mobility, Community Reintegration , Cooking, Dressing, Eating, Fine Motor Skills, Grooming, Homemaking, Kitchen Mobility, Laundry, Shanika ent Education, Safety Awareness, Splinting - Positioning, Transfers(Toilet, Tub, Shower), and Wheel C hair Management Cognitive deficits - to improve, our occupation therapists will perform initial evaluation of pt's st atus upon admission and devise an individualized program for Cognition - orientation Need for healthcare architect - to improve, our occupation therapists will perform initial evaluation of pt's s tatus upon admission and devise an individualized program for Caregiver Training Weakness - to improve, our occupation therapists will perform initial evaluation of pt's status upon admission and devise an individualized program for Aquatic Therapy, Balance, Endurance, UE ROM, and U E strengthening MEDICAL PLAN: - Diet Type Start Regular - Diet - Liquid Texture Start Regular - Tube Feed Start N/A - Bladder care per protocol - Weight Bearing Precaution WBAT right LE - Fall Precaution Bed alarm TABS alarm Wheel chair alarm - Skin care per protocol - Other See attached MAR (Medication Administration Record) - Diet - Solid Texture Regular - Shower shower DISCHARGE PLAN: - Estimated Length of Stay (days) 17. - Consensus on plan Discharge plan has been discussed with primary caregiver. Patient/Family is in agreement with the bandar n. Primary caregiver is in agreement with the plan. - Patient/Family Goals Return home independently. - Planned Living Setting Upon Discharge Home, to live with Family/Relatives. Transitional Living. SIGNATURE PANEL: (CAN PUSHER)
--- NOTE | 2021-09-14 17:04 | PAPE ---
POST ADMISSION PHYSICIAN EVALUATION PATIENT: [facility] MR# [id number] REFERRING DOCTOR AMIE SUTTNO EVALUATION DATE AND TIME 09/14/2021 17:03 (CASINO SLOT SUPERVISOR) NAME RAMSES POON DATE OF 1960 AGE 61 PHONE N# [id number] GENDER female EVALUATING PHYSICIAN Dr. Francis Holliday M.D. ADMISSION DIAGNOSIS: ACUTE CVA ONSET DATE 09/09/2021 POST-ADMISSION FUNCTIONAL/MEDICAL STATUS: - Bladder Same accident frequency: 7-Ind - No accidents in the past 7 days - Bowel Same accident frequency: 7-Ind - No accidents in the past 7 days - Walking Same score based on distance walked: 0(N/A) Same score based on distance walked: 3(>=150ft) - Wheelchair Same score based on distance traveled: 0(N/A) STATUS CHANGE EVALUATION: No change in Functional or Medical Status is identified compared with Pre-Admission screening. PATIENT NEEDS CLOSE MEDICAL SUPERVISION BY A REHABILITATION PHYSICIAN FOR: Coordination of Treatment Team Wound Care PATIENT REQUIRES 24X7 REHAB NURSING FOR MEDICAL AND FUNCTIONAL MGT. OF THE FOLLOWING DEFICITS: Disease Management Medication Management Patient requires 24x7 Rehabilitation Nursing for: Pain Issues, Identifying and preventing risk factor s, Monitoring and reporting current medical conditions, Assisting with ambulation and transfer, Antionette ting with all ADL-s, Teaching patients about disease process and medications, Family teaching, Provid ing safe environment, Bowel and Bladder Issues, Skin Integrity, and Medication Management Patient/Family Education Providing Safe Environment PATIENT REQUIRES INTENSIVE, COORDINATED INTERDISCIPLINARY APPROACH TO REHAB: Arranging Home Equipment/Services Discharge Planning Family Intervention/Training Patient needs Dietary and Nutrition Services for: Adequate Nutrition, Nutritional Supplements, and Nu tritional Education Patient needs Frameman and/or Case Management for: Discharge Planning, Arranging Home Equipmen t or Services, and Family Interventions Frameman/Case Management LIST OF IDENTIFIED AND POTENTIAL PROBLEMS: Alteration in leisure activities Bladder, Incontinence Bowel, Incontinence Falls, Actual or Potential Infection, Actual or Potential Mobility Impaired Pain, Alteration in Comfort Self Care Deficit Skin Integrity, Actual or Potential Urinary Tract Infection (UTI), Actual or Potential RISK FOR COMPLICATIONS - CVA pt's blood pressures have been inconsistent and require monitoring and medication management as inidi cated by physician. - CARDIC right sided weakness. - HYPERTENSION WEAKNESS. INTERVENTIONS - HYPERTENSION Blood pressure will be regularly assessed and medications administered as per physician recommendjose guadalupeo ns. - CHF monitoring of patient symptoms and medication management by physician. PATIENT COULD BE AT RISK FOR COMPLICATIONS FROM ADVERSE MEDICAL CONDITIONS DUE TO HIS/HER COMORBIDITI ES AND THE RIGORS OF THE INTENSIVE REHABILLITATION PROGRAM. METHODS OR INTERVENTIONS TO AVOID COMPLIC ATIONS INCLUDE: - Bleeding Assess lab values and manage abnormalities. Nursing to teach precautions for anti-coagulation therapy . Stroke patients assessed for lethargy or change in status. Wound to be assessed every shift. - Infection Clinical staff to assess and manage the signs and symptoms of infection including fever, redness, war mth, etc. - Urinary Tract Infection - Aspiration Clinical staff will assess and manage coughing, drooling, congestion. - Falls Patient will be evaluated for Fall Precautions and will be placed on Fall Precautions as indicated pe r protocol. - Skin Breakdown Nursing will assess skin daily using assessment tool and will place on Skin Breakdown Precautions as indicated per protocol. - Pain Clinical staff may employ non-medication methods such as massage, distraction, decrease stimulus, etc . as needed. Clinical staff will assess patient's pain level every shift per protocol to assess and e nsure pain management effectiveness. Medications will be given and the pain level re-assessed. PRELIMINARY PLAN OF CARE: - Physical Therapy Patient needs Physical Therapy for a daily minimum of 1.5 hours at least 5 out of 7 days, to improve: Mobility, Strengthening, Transfers, Stretching, ROM, Endurance, Ability to manage stairs, Gait, and Balance. - Speech Therapy Patient needs Speech Therapy for a daily minimum of 0.5 hours at least 5 out of 7 days, to improve: S wallowing, Cognition, Language Skills, and Compensatory Strategies. - Rehabilitation Nursing Patient requires 24x7 Rehabilitation Nursing for: Pain Issues, Identifying and preventing risk factor s, Monitoring and reporting current medical conditions, Assisting with ambulation and transfer, Antionette ting with all ADL-s, Teaching patients about disease process and medications, Family teaching, Provid ing safe environment, Bowel and Bladder Issues, Skin Integrity, and Medication Management. Patient needs Frameman and/or Case Management for: Discharge Planning, Arranging Home Equipmen t or Services, and Family Interventions. - Dietary and Nutrition Services Patient needs Dietary and Nutrition Services for: Adequate Nutrition, Nutritional Supplements, and Nu tritional Education. - Occupational Therapy Patient needs Occupational Therapy for a daily minimum of 1.5 hours at least 5 out of 7 days, to impr ove Activities of Daily Living, including: Eating, Grooming, Bathing, Dressing, Toileting, Toilet Tra nsfers, Community Reintegration, Higher functional activities, Adaptive Equipment, Splinting, Househo ld Tasks, and Other activities as determined. QI SCORES: - Self-Care A. Eating 03-Partial/moderate assistance B. Oral hygiene 03-Partial/moderate assistance C. Toileting hygiene 03-Partial/moderate assistance E. Shower/bathe self 03-Partial/moderate assistance F. Upper body dressing 03-Partial/moderate assistance G. Lower body dressing 03-Partial/moderate assistance H. Putting on/taking off footwear 03-Partial/moderate assistance - Mobility A. Roll left and right 03-Partial/moderate assistance B. Sit to lying 03-Partial/moderate assistance C. Lying to sitting on side of bed 03-Partial/moderate assistance D. Sit to stand 03-Partial/moderate assistance E. Chair/yct-yi-yqtia transfer 03-Partial/moderate assistance F. Toilet transfer 03-Partial/moderate assistance G. Car transfer 88-Not attempted due to medical condition or safety concerns I. Walk 10 feet 03-Partial/moderate assistance J. Walk 50 feet with two turns 88-Not attempted due to medical condition or safety concerns K. Walk 150 feet 88-Not attempted due to medical condition or safety concerns L. Walking 10 feet on uneven surfaces 88-Not attempted due to medical condition or safety concerns M. 1 step (curb) 88-Not attempted due to medical condition or safety concerns N. 4 steps 88-Not attempted due to medical condition or safety concerns O. 12 steps 88-Not attempted due to medical condition or safety concerns P. Picking up object 88-Not attempted due to medical condition or safety concerns R. Wheel 50 feet with two turns 88-Not attempted due to medical condition or safety concerns S. Wheel 150 feet 88-Not attempted due to medical condition or safety concerns - Bladder and Bowel Bladder continence Bowel continence - Endurance Fair - Balance Fair - Safety Awareness Fair POTENTIAL FUNCTIONAL GOALS FOR PATIENT TO ACHIEVE BY DISCHARGE: - Safety Precaution Patient will remain free from falls or injury at time of discharge. - Bed Mobility Patient will perform bed mobility at 4-Adri level of assistance. - Transfers Patient will complete transfers from bed to chair at 4-Adri level of assistance. - Mobility Patient will ambulate 150 ft with 4-Adri level of assistance with RW. PATIENT REHAB POTENTIAL Marisa POON is able and expected to receive 3 hours of individualized therapy daily on at least 5 of mitchell ry 7 days Marisa HAREs prognosis for significant practical improvement within a reasonable period of time appears Good Expected level of measurable improvement will be of a practical value to Marisa POON's functional capaci ty or adaptations to impairments Has a viable Discharge Plan Medically appropriate; condition is sufficiently stable to participate in intensive rehab program DISCHARGE PLAN: - Estimated Length of Stay (days) 17. - Consensus on plan Discharge plan has been discussed with primary caregiver. Patient/Family is in agreement with the bandar n. Primary caregiver is in agreement with the plan. - Patient/Family Goals Return home independently. - Planned Living Setting Upon Discharge Home, to live with Family/Relatives. Transitional Living. CONCLUSION ON REHABILITATION NECESSITY: I have evaluated patient's pre-admission functional status and, comparing it to the patient's post-ad mission functional status now, I conclude that the pre-admission assessment was accurate. Patient's c ondition on admission supports the medical necessity of admission to IR[facility]. It is safe to proceed with patient's therapy program. SIGNATURE PANEL: (CASINO SLOT SUPERVISOR)
[2021-09-14 17:06] LABS: Urine Amorphous Sediment 1+ /HPF (NONE SEEN); Urine Bacteria >50 /HPF (<20); Urine Bilirubin NEGATIVE (Negative); Urine RBC LOADED /HPF (NONE SEEN)
[2021-09-14] MEDS: AMITRIPTYLINE 25 MG TAB PO SCH (20:04)
[2021-09-14] MEDS: LOSARTAN POTASSIUM 50 MG TABLET PO SCH (20:04)
[2021-09-14] MEDS: CLOPIDOGREL 75 MG TABLET PO SCH (20:05)
[2021-09-14] MEDS: ATORVASTATIN 20 MG TAB PO SCH (20:05)
[2021-09-14] MEDS: CYCLOBENZAPRINE 10 MG TAB PO SCH (20:05)
[2021-09-15] MEDS: NA CHLORIDE 0.9% 1,000 ML IV SCH (02:17)
[2021-09-15] MEDS: PANTOPRAZOLE 40MG TABLET PO SCH (05:12)
[2021-09-15] MEDS: FOLIC ACID 1 MG TABLET PO SCH (07:11)
[2021-09-15] MEDS: AMLODIPINE 5 MG TAB PO SCH (07:11)
[2021-09-15] MEDS: ASPIRIN 81 MG CHEWABLE TABLET PO SCH (07:11)
[2021-09-15] MEDS ORDERED: NA CHLORIDE 0.9% 1,000 ML IV SCH (16:00)
--- NOTE | 2021-09-15 16:07 | R.PN ---
PROGRESS NOTES ENCOUNTER DATE AND TIME: 09/15/2021 15:58 (BELLSTAND ATTENDANT) NAME RAMSES POON DATE OF : 1960 DATE OF ADMISSION: 09/13/2021 22:43 (BELLSTAND ATTENDANT) ACUTE CVACHIEF COMPLAINT: Right sided weakness, dysphagia, dysarthria SUBJECTIVE: Pt denied any depression. Pt denied any Shortness of Breath. WBC 9.2, Hgb 11.4, prealbumin 15.9, UA: esterase 2+, RBC loaded, bacteria > 50. Ambulated 450' with standby assistance using a rolling walker. Up and down 12 steps with contact guar d assistance. VITAL SIGNS Temperature: 98.0 F SBP/DBP: 165/81 Pulse: 84 Resp: 16 MEDICATION ALLERGIES: CODEINE ENVIRONMENTAL ALLERGIES: - Substance Allergies None Known - Other Allergies None Known NURSING: - Shower allowing shower - Bladder care per protocol - Skin care per protocol PRECAUTIONS: - Weight Bearing Precaution WBAT right LE - Fall Precaution Bed alarm TABS alarm Wheel chair alarm ACTIVITIES OOB only with supervision THERAPIES: - Dietary and Nutrition Adequate Nutrition. Nutritional Education. Nutritional Supplements. Evaluate and Treat. - Occupational Therapy Cognitive Retraining. Patient needs Occupational Therapy for a daily minimum of 1.5 hours at least 5 out of 7 days, to improve Activities of Daily Living, including: Eating, Grooming, Bathing, Dressing, Toileting, Toilet Transfers, Community Reintegration, Higher functional activities, Adaptive Equipme nt, Splinting, Household Tasks, and Other activities as determined. Evaluate and Treat. Patient/Famil y Education. Safety Awareness. Adaptive Equipment. Transfer Training. Household Tasks. - Speech Therapy Cognitive Training. Evaluate and Treat. Expressive Language Skills. Memory Strategies. Patient needs Speech Therapy for a daily minimum of 1.5 hours at least 5 out of 7 days, to improve: Swallowing, Cog nition, Language Skills, and Compensatory Strategies. Receptive Language Skills. Speech Intelligibili ty Training. - Physical Therapy Patient needs Physical Therapy for a daily minimum of 1.5 hours at least 5 out of 7 days, to improve: Mobility, Strengthening, Transfers, Stretching, ROM, Endurance, Ability to manage stairs, Gait, and Balance. Evaluate and Treat. Mobility Training. Safety Awareness. Gait Training. Balance Training. Tr ansfer Training. Patient/Family Education. PHYSICAL EXAM - Gen Alert and awake Lying in bed No apparent distress Oriented to: person, time, and place - Skin No skin breakdown. Normacephalic - Eyes No abnormalities - ENMT No abnormalities - Neck No abnormalities - CVS RRR - Chest No abnormalities - Abd Soft - GI Non distended Deferred - No abnormalities - Ext No significant edema - MSK 4+/5 weakness in right upper and lower extremities - Neuro 4/5 strength right upper and lower extremities. - Psych No abnormalities ASSESSMENT: Pt. is a 61 yo Right-handed female.On 09/09/2021 Pt. presented to [facility] with sudden onset of right-side weakness.On 09/09/2021 she was admitted to [facility] with diagnosi s ACUTE CVA.Her impairment category is Stroke 01 - Right Body (Left Brain) (01.2).Pre-morbidly, Pt. was independent/mod-I in Locomotion, Safety Awareness, Social Cognition, and Balance; and she had goo d Transfers Control, Sphincter Control, Self-Care, Communication, and Endurance.Currently, she has de ficits of Locomotion, Social Cognition, Safety Awareness, Balance, Transfers Control, Sphincter Contr ol, Self-Care, Communication, and Endurance.Pt. is now referred to [facility] for acute in-patient rehabilitation in order to maximize patient's functional independence in activit ies of daily living, strength, ROM, and mobility.- Rehab Goal Patient has realistic goal of being discharged at assistance level 7-Ind to reside at Home with Fami ly/Relatives. MDM/PLAN: - Physical Therapy Gait dysfunction - to improve, our physical therapists will perform initial evaluation of pt's statu s upon admission and devise an individualized program for Gait Training, and Wheel Chair mobility Inability to transfer - to improve, our physical therapists will perform initial evaluation of pt's status upon admission and devise an individualized program for Bed mobility Need for home safety evaluation - to improve, our physical therapists will perform initial evaluatio n of pt's status upon admission and devise an individualized program for Home Evaluation Need in caregiver upon discharge - to improve, our physical therapists will perform initial evaluati on of pt's status upon admission and devise an individualized program for Caregiver Training New precaution - to improve, our physical therapists will perform initial evaluation of pt's status upon admission and devise an individualized program for Patient precaution education Edema - to improve, our physical therapists will perform initial evaluation of pt's status upon admi ssion and devise an individualized program for Elevation Training, and Lymphedema Therapy Poor balance - to improve, our physical therapists will perform initial evaluation of pt's status up on admission and devise an individualized program for Balance Training Poor endurance - to improve, our physical therapists will perform initial evaluation of pt's status upon admission and devise an individualized program for Endurance Training Weakness - to improve, our physical therapists will perform initial evaluation of pt's status upon a dmission and devise an individualized program for Aquatic Therapy, Neuromuscular Reeducation, and Str engthening Achieving independence - to improve, our physical therapists will perform initial evaluation of pt's status upon admission and devise an individualized program for Community Reintegration Activities - Occupational Therapy ADL deficits - to improve, our occupation therapists will perform initial evaluation of pt's status upon admission and devise an individualized program for Bathing, Bed mobility, Community Reintegratio n, Cooking, Dressing, Eating, Fine Motor Skills, Grooming, Homemaking, Kitchen Mobility, Laundry, Pat ient Education, Safety Awareness, Splinting - Positioning, Transfers(Toilet, Tub, Shower), and Wheel Chair Management Cognitive deficits - to improve, our occupation therapists will perform initial evaluation of pt's s tatus upon admission and devise an individualized program for Cognition - orientation Need for summer child caregiver - to improve, our occupation therapists will perform initial evaluation of pt's status upon admission and devise an individualized program for Caregiver Training Weakness - to improve, our occupation therapists will perform initial evaluation of pt's status upon admission and devise an individualized program for Aquatic Therapy, Balance, Endurance, UE ROM, and UE strengthening - Other See attached MAR (Medication Administration Record) - Diet Type Continue Regular - Diet - Liquid Texture Continue Regular - Tube Feed Continue N/A - Bladder care per protocol - Weight Bearing Precaution WBAT right LE - Fall Precaution Bed alarm TABS alarm Wheel chair alarm - Skin care per protocol - Diet - Solid Texture Continue Regular - Shower allowing shower for Dementia, TBI, Stroke, or others FUNCTIONAL STATUS: UPDATED AT WEEKLY TEAM CONFERENCE - Bladder Same accident frequency: 7-Ind - No accidents in the past 7 days - Bowel Same accident frequency: 7-Ind - No accidents in the past 7 days - Walking Same score based on distance walked: 0(N/A) Same score based on distance walked: 3(>=150ft) - Wheelchair Same score based on distance traveled: 0(N/A) FUNCTIONAL STATUS: - Self-Care A. Eating sup B. Grooming sup C. Bathing Adri D. Dressing - Upper sup E. Dressing - Lower Adri F. Toileting Adri - Sphincter Control G. Bladder control H. Bowel control - Transfers Control I. Bed/Chair/Wheelchair Adri J. Toilet Adri K. Tub/Shower modA - Locomotion L. Walk/Wheelchair (B) modA M. Stairs modA - Communication N. Comprehension (B) Jeremy O. Expression (B) Jeremy - Social Cognition P. Social Interaction Jeremy Q. Problem Solving sup R. Memory Jeremy - Endurance Good - Balance Fair - Safety Awareness Fair QI SCORES: - Self-Care A. Eating 03-Partial/moderate assistance B. Oral hygiene 03-Partial/moderate assistance C. Toileting hygiene 03-Partial/moderate assistance E. Shower/bathe self 03-Partial/moderate assistance F. Upper body dressing 03-Partial/moderate assistance G. Lower body dressing 03-Partial/moderate assistance H. Putting on/taking off footwear 03-Partial/moderate assistance - Mobility A. Roll left and right 03-Partial/moderate assistance B. Sit to lying 03-Partial/moderate assistance C. Lying to sitting on side of bed 03-Partial/moderate assistance D. Sit to stand 03-Partial/moderate assistance E. Chair/fuo-fg-urvck transfer 03-Partial/moderate assistance F. Toilet transfer 03-Partial/moderate assistance G. Car transfer 88-Not attempted due to medical condition or safety concerns I. Walk 10 feet 03-Partial/moderate assistance J. Walk 50 feet with two turns 88-Not attempted due to medical condition or safety concerns K. Walk 150 feet 88-Not attempted due to medical condition or safety concerns L. Walking 10 feet on uneven surfaces 88-Not attempted due to medical condition or safety concerns M. 1 step (curb) 88-Not attempted due to medical condition or safety concerns N. 4 steps 88-Not attempted due to medical condition or safety concerns O. 12 steps 88-Not attempted due to medical condition or safety concerns P. Picking up object 88-Not attempted due to medical condition or safety concerns R. Wheel 50 feet with two turns 88-Not attempted due to medical condition or safety concerns S. Wheel 150 feet 88-Not attempted due to medical condition or safety concerns - Bladder and Bowel Bladder continence Bowel continence - Endurance Fair - Balance Fair - Safety Awareness Fair CURRENT [facility]. DEFICITS: Self-Care, Mobility, Endurance, Balance, and Safety Awareness SIGNATURE PANEL: (BELLSTAND ATTENDANT)
[2021-09-15] MEDS: LOSARTAN POTASSIUM 50 MG TABLET PO SCH (20:27)
[2021-09-15] MEDS: CRANBERRY FRUIT EXTRACT 400 MG CAP PO SCH (20:28)
[2021-09-15] MEDS: CLOPIDOGREL 75 MG TABLET PO SCH (20:28)
[2021-09-15] MEDS: AMITRIPTYLINE 25 MG TAB PO SCH (20:28)
[2021-09-15] MEDS: CYCLOBENZAPRINE 10 MG TAB PO SCH (20:28)
[2021-09-15] MEDS: ATORVASTATIN 20 MG TAB PO SCH (20:28)
[2021-09-16] MEDS: PANTOPRAZOLE 40MG TABLET PO SCH (05:25)
[2021-09-16] MEDS: AMLODIPINE 5 MG TAB PO SCH (07:44)
[2021-09-16] MEDS: ASPIRIN 81 MG CHEWABLE TABLET PO SCH (07:56)
[2021-09-16] MEDS: CRANBERRY FRUIT EXTRACT 400 MG CAP PO SCH ×2 (07:57→19:54)
[2021-09-16] MEDS: FOLIC ACID 1 MG TABLET PO SCH (07:57)
--- NOTE | 2021-09-16 08:42 | RAD REPORT ---
EXAM DESCRIPTION: US - Extremity Nonvascular Complete - 09/15/2021 11:47 pm CLINICAL HISTORY: r/o fluid collection rt groin Right groin pain COMPARISON: Extrem Venous W Compress Pablo dated 02/25/2020 TECHNIQUE: Real-time sonographic evaluation of the area of interest was performed. FINDINGS: No fluid collections are identified in the area interest. No pathologic finding identified . IMPRESSION: Negative examination.
--- NOTE | 2021-09-16 17:51 | R.PN ---
PROGRESS NOTES ENCOUNTER DATE AND TIME: 09/16/2021 17:41 (HEARING HEALTH TECHNICIAN) NAME RAMSES POON DATE OF : 1960 DATE OF ADMISSION: 09/13/2021 22:43 (HEARING HEALTH TECHNICIAN) ACUTE CVACHIEF COMPLAINT: Right sided weakness, dysphagia, dysarthria SUBJECTIVE: Pt denied any depression. Pt denied any Shortness of Breath. WBC 9.2, Hgb 11.4, prealbumin 15.9, UA: esterase 2+, RBC loaded, bacteria > 50. Klebsiella Pneumoniae sensitive to Bactrin. Will give Bactrim DS bid for 5 days. Ambulated 250' with contact guard assistance using a rolling walker. Self-propelled wheelchair 50' wi th standby assistance. Ultra sound of the right groin shows no fluid collection. VITAL SIGNS Temperature: 97.6 F SBP/DBP: 142/79 Pulse: 78 Resp: 16 MEDICATION ALLERGIES: CODEINE ENVIRONMENTAL ALLERGIES: - Substance Allergies None Known - Other Allergies None Known NURSING: - Shower allowing shower - Bladder care per protocol - Skin care per protocol PRECAUTIONS: - Weight Bearing Precaution WBAT right LE - Fall Precaution Bed alarm TABS alarm Wheel chair alarm ACTIVITIES OOB only with supervision THERAPIES: - Dietary and Nutrition Adequate Nutrition. Nutritional Education. Nutritional Supplements. Evaluate and Treat. - Occupational Therapy Cognitive Retraining. Patient needs Occupational Therapy for a daily minimum of 1.5 hours at least 5 out of 7 days, to improve Activities of Daily Living, including: Eating, Grooming, Bathing, Dressing, Toileting, Toilet Transfers, Community Reintegration, Higher functional activities, Adaptive Equipme nt, Splinting, Household Tasks, and Other activities as determined. Evaluate and Treat. Patient/Famil y Education. Safety Awareness. Adaptive Equipment. Transfer Training. Household Tasks. - Speech Therapy Cognitive Training. Evaluate and Treat. Expressive Language Skills. Memory Strategies. Patient needs Speech Therapy for a daily minimum of 1.5 hours at least 5 out of 7 days, to improve: Swallowing, Cog nition, Language Skills, and Compensatory Strategies. Receptive Language Skills. Speech Intelligibili ty Training. - Physical Therapy Patient needs Physical Therapy for a daily minimum of 1.5 hours at least 5 out of 7 days, to improve: Mobility, Strengthening, Transfers, Stretching, ROM, Endurance, Ability to manage stairs, Gait, and Balance. Evaluate and Treat. Mobility Training. Safety Awareness. Gait Training. Balance Training. Win mena Training. Patient/Family Education. PHYSICAL EXAM - Gen Alert and awake Lying in bed No apparent distress Oriented to: person, time, and place - Skin No skin breakdown. Normacephalic - Eyes No abnormalities - ENMT No abnormalities - Neck No abnormalities - CVS RRR - Chest No abnormalities - Abd Soft - GI Non distended Deferred - No abnormalities - Ext No significant edema - MSK 4+/5 weakness in right upper and lower extremities - Neuro 4/5 strength right upper and lower extremities. - Psych No abnormalities ASSESSMENT: Pt. is a 61 yo Right-handed female.On 09/09/2021 Pt. presented to [facility] with sudden onset of right-side weakness.On 09/09/2021 she was admitted to [facility] with diagnosi s ACUTE CVA.Her impairment category is Stroke 01 - Right Body (Left Brain) (01.2).Pre-morbidly, Pt. was independent/mod-I in Locomotion, Safety Awareness, Social Cognition, and Balance; and she had goo d Transfers Control, Sphincter Control, Self-Care, Communication, and Endurance.Currently, she has de ficits of Locomotion, Social Cognition, Safety Awareness, Balance, Transfers Control, Sphincter Contr ol, Self-Care, Communication, and Endurance.Pt. is now referred to [facility] for acute in-patient rehabilitation in order to maximize patient's functional independence in activit ies of daily living, strength, ROM, and mobility.- Rehab Goal Patient has realistic goal of being discharged at assistance level 7-Ind to reside at Home with Fami ly/Relatives. MDM/PLAN: - Physical Therapy Gait dysfunction - to improve, our physical therapists will perform initial evaluation of pt's statu s upon admission and devise an individualized program for Gait Training, and Wheel Chair mobility Inability to transfer - to improve, our physical therapists will perform initial evaluation of pt's status upon admission and devise an individualized program for Bed mobility Need for home safety evaluation - to improve, our physical therapists will perform initial evaluatio n of pt's status upon admission and devise an individualized program for Home Evaluation Need in caregiver upon discharge - to improve, our physical therapists will perform initial evaluati on of pt's status upon admission and devise an individualized program for Caregiver Training New precaution - to improve, our physical therapists will perform initial evaluation of pt's status upon admission and devise an individualized program for Patient precaution education Edema - to improve, our physical therapists will perform initial evaluation of pt's status upon admi ssion and devise an individualized program for Elevation Training, and Lymphedema Therapy Poor balance - to improve, our physical therapists will perform initial evaluation of pt's status up on admission and devise an individualized program for Balance Training Poor endurance - to improve, our physical therapists will perform initial evaluation of pt's status upon admission and devise an individualized program for Endurance Training Weakness - to improve, our physical therapists will perform initial evaluation of pt's status upon a dmission and devise an individualized program for Aquatic Therapy, Neuromuscular Reeducation, and Str engthening Achieving independence - to improve, our physical therapists will perform initial evaluation of pt's status upon admission and devise an individualized program for Community Reintegration Activities - Occupational Therapy ADL deficits - to improve, our occupation therapists will perform initial evaluation of pt's status upon admission and devise an individualized program for Bathing, Bed mobility, Community Reintegratio n, Cooking, Dressing, Eating, Fine Motor Skills, Grooming, Homemaking, Kitchen Mobility, Laundry, Pat ient Education, Safety Awareness, Splinting - Positioning, Transfers(Toilet, Tub, Shower), and Wheel Chair Management Cognitive deficits - to improve, our occupation therapists will perform initial evaluation of pt's s tatus upon admission and devise an individualized program for Cognition - orientation Need for home care nurse - to improve, our occupation therapists will perform initial evaluation of pt's status upon admission and devise an individualized program for Caregiver Training Weakness - to improve, our occupation therapists will perform initial evaluation of pt's status upon admission and devise an individualized program for Aquatic Therapy, Balance, Endurance, UE ROM, and UE strengthening - Other See attached MAR (Medication Administration Record) - Diet Type Continue Regular - Diet - Liquid Texture Continue Regular - Tube Feed Continue N/A - Bladder care per protocol - Weight Bearing Precaution WBAT right LE - Fall Precaution Bed alarm TABS alarm Wheel chair alarm - Skin care per protocol - Diet - Solid Texture Continue Regular - Shower allowing shower for Dementia, TBI, Stroke, or others FUNCTIONAL STATUS: UPDATED AT WEEKLY TEAM CONFERENCE - Bladder Same accident frequency: 7-Ind - No accidents in the past 7 days - Bowel Same accident frequency: 7-Ind - No accidents in the past 7 days - Walking Same score based on distance walked: 0(N/A) Same score based on distance walked: 3(>=150ft) - Wheelchair Same score based on distance traveled: 0(N/A) FUNCTIONAL STATUS: - Self-Care A. Eating sup B. Grooming sup C. Bathing Adri D. Dressing - Upper sup E. Dressing - Lower Adri F. Toileting Adri - Sphincter Control G. Bladder control H. Bowel control - Transfers Control I. Bed/Chair/Wheelchair Adri J. Toilet Adri K. Tub/Shower modA - Locomotion L. Walk/Wheelchair (B) modA M. Stairs modA - Communication N. Comprehension (B) Jeremy O. Expression (B) Jeremy - Social Cognition P. Social Interaction Jeremy Q. Problem Solving sup R. Memory Jeremy - Endurance Good - Balance Fair - Safety Awareness Fair QI SCORES: - Self-Care A. Eating 03-Partial/moderate assistance B. Oral hygiene 03-Partial/moderate assistance C. Toileting hygiene 03-Partial/moderate assistance E. Shower/bathe self 03-Partial/moderate assistance F. Upper body dressing 03-Partial/moderate assistance G. Lower body dressing 03-Partial/moderate assistance H. Putting on/taking off footwear 03-Partial/moderate assistance - Mobility A. Roll left and right 03-Partial/moderate assistance B. Sit to lying 03-Partial/moderate assistance C. Lying to sitting on side of bed 03-Partial/moderate assistance D. Sit to stand 03-Partial/moderate assistance E. Chair/[id number] transfer 03-Partial/moderate assistance F. Toilet transfer 03-Partial/moderate assistance G. Car transfer 88-Not attempted due to medical condition or safety concerns I. Walk 10 feet 03-Partial/moderate assistance J. Walk 50 feet with two turns 88-Not attempted due to medical condition or safety concerns K. Walk 150 feet 88-Not attempted due to medical condition or safety concerns L. Walking 10 feet on uneven surfaces 88-Not attempted due to medical condition or safety concerns M. 1 step (curb) 88-Not attempted due to medical condition or safety concerns N. 4 steps 88-Not attempted due to medical condition or safety concerns O. 12 steps 88-Not attempted due to medical condition or safety concerns P. Picking up object 88-Not attempted due to medical condition or safety concerns R. Wheel 50 feet with two turns 88-Not attempted due to medical condition or safety concerns S. Wheel 150 feet 88-Not attempted due to medical condition or safety concerns - Bladder and Bowel Bladder continence Bowel continence - Endurance Fair - Balance Fair - Safety Awareness Fair CURRENT [facility]. DEFICITS: Self-Care, Mobility, Endurance, Balance, and Safety Awareness SIGNATURE PANEL: (HEARING HEALTH TECHNICIAN)
[2021-09-16] MEDS: CYCLOBENZAPRINE 10 MG TAB PO SCH (19:53)
[2021-09-16] MEDS: LOSARTAN POTASSIUM 50 MG TABLET PO SCH (19:54)
[2021-09-16] MEDS: ATORVASTATIN 20 MG TAB PO SCH (19:54)
[2021-09-16] MEDS: SMZ./TMP. 800/160 MG TABLET PO SCH (19:54)
[2021-09-16] MEDS: AMITRIPTYLINE 25 MG TAB PO SCH (19:54)
[2021-09-16] MEDS: CLOPIDOGREL 75 MG TABLET PO SCH (19:54)
[2021-09-17] MEDS: PANTOPRAZOLE 40MG TABLET PO SCH (05:18)
[2021-09-17] MEDS: AMLODIPINE 5 MG TAB PO SCH (08:14)
[2021-09-17] MEDS: ASPIRIN 81 MG CHEWABLE TABLET PO SCH (08:14)
[2021-09-17] MEDS: SMZ./TMP. 800/160 MG TABLET PO SCH ×2 (08:14→19:37)
[2021-09-17] MEDS: FOLIC ACID 1 MG TABLET PO SCH (08:14)
[2021-09-17] MEDS: CRANBERRY FRUIT EXTRACT 400 MG CAP PO SCH ×2 (08:15→19:36)
--- NOTE | 2021-09-17 09:51 | P.RH.PN ---
Estimated Length of Stay: 14 Expected Discharge Date: 09/20/21 Discharge Disposition Plan: Home Family Support: Yes Intermediate Goal: Mobility, Transfers, Self Care Vital Signs: Last Vital Signs Temp 97.5 F 09/17/21 07:41 Pulse 85 09/17/21 08:14 Resp 16 09/17/21 07:41 BP 152/74 H 09/17/21 08:14 Pulse Ox 98 09/17/21 07:41 Laboratory: Laboratory Last Values WBC 9.20 K/uL (4.3-10.9) 09/14/21 04:37 RBC 4.58 M/uL (3.86-4.86) 09/14/21 04:37 Hgb 11.4 g/dL (12.0-15.0) L 09/14/21 04:37 Hct 35.4 % (36.0-45.0) L 09/14/21 04:37 MCV 77.4 fL (80-100) L 09/14/21 04:37 MCH 24.9 pg (27.0-35.0) L 09/14/21 04:37 MCHC 32.2 g/dL (32.0-36.0) 09/14/21 04:37 RDW 24.4 % (12.1-15.2) H 09/14/21 04:37 Plt Count 187 K/uL (152-406) 09/14/21 04:37 MPV 8.0 fL (7.6-11.3) 09/14/21 04:37 Neutrophils % 79.2 % (41.7-73.7) H 09/14/21 04:37 Lymphocytes % 10.8 % (15.3-44.8) L 09/14/21 04:37 Monocytes % 7.3 % (3.3-12.3) 09/14/21 04:37 Eosinophils % 2.0 % (0-4.4) 09/14/21 04:37 Basophils % 0.7 % (0-1.3) 09/14/21 04:37 Absolute Neutrophils 7.3 K/uL (1.8-8.0) 09/14/21 04:37 Absolute Lymphocytes 1.0 K/uL (0.7-4.9) 09/14/21 04:37 Absolute Monocytes 0.7 K/uL (0.1-1.3) 09/14/21 04:37 Absolute Eosinophils 0.2 K/uL (0-0.5) 09/14/21 04:37 Absolute Basophils 0.1 K/uL (0-0.5) 09/14/21 04:37 Platelet Estimate Adeq 09/14/21 04:37 Anisocytosis 3+ 09/14/21 04:37 Microcytosis 2+ 09/14/21 04:37 Schistocytes 2+ 09/14/21 04:37 Morphology Comment Noted (NOT SEEN) 09/14/21 04:37 Sodium 137 mmol/L (136-145) 09/14/21 04:37 Potassium 4.2 mmol/L (3.5-5.1) 09/14/21 04:37 Chloride 110 mmol/L (98-107) H 09/14/21 04:37 Carbon Dioxide 23 mmol/L (21-32) 09/14/21 04:37 BUN 11 mg/dL (7-18) 09/14/21 04:37 Creatinine 0.93 mg/dL (0.55-1.3) 09/14/21 04:37 Estimated GFR 61 mL/min (=/>90) L 09/14/21 04:37 Glucose 106 mg/dL (74-106) 09/14/21 04:37 Calcium 8.2 mg/dL (8.5-10.1) L 09/14/21 04:37 Magnesium 2.2 mg/dL (1.8-2.4) D 09/14/21 04:37 Albumin 3.2 g/dL (3.4-5.0) L 09/14/21 04:37 Prealbumin 15.9 mg/dL (20-40) L 09/14/21 04:37 Urine Color Dk yellow (Yellow) 09/14/21 16:00 Urine Appearance Cloudy (Clear) 09/14/21 16:00 Urine pH 5.5 (5.0-7.0) 09/14/21 16:00 Ur Specific [place] 1.025 (1.005-1.030) 09/14/21 16:00 Glucose (UA)(Auto) Negative (Negative) 09/14/21 16:00 Urine Ketones Trace (Negative) H 09/14/21 16:00 Urine Blood 3+ (Negative) H 09/14/21 16:00 Urine Nitrite Negative (Negative) 09/14/21 16:00 Urine Bilirubin Negative (Negative) 09/14/21 16:00 Urine Urobilinogen 1.0 mg/dL (0.2-1.0) 09/14/21 16:00 Ur Leukocyte Esterase 2+ (Negative) H 09/14/21 16:00 Urine RBC Loaded /HPF (NONE SEEN) H 09/14/21 16:00 Urine WBC 20-50 /HPF (<5) H 09/14/21 16:00 Ur Squamous Epith Cells <5 /HPF (NONE SEEN) 09/14/21 16:00 Amorphous Sediment 1+ /HPF (NONE SEEN) 09/14/21 16:00 Urine Bacteria >50 /HPF (<20) H 09/14/21 16:00 Urine Culture Reflexed Not needed 09/14/21 16:00 Urine Total Protein 3+ (Negative) H 09/14/21 16:00 Smear Scan Ok (OK) 09/14/21 04:37 Weight: 111 lb Wound Present: No Closed Surgical Incision Present: No Negative Pressure Wound Therapy Present: No Physician Update: Labs reviewed and are stable. She is doing well with physical and occupational therapy. Walking 250' with minimum assistance. She did 2 steps with moderate assistance. Minimum assistance with grooming, set up for upper body dressing, standby for toileting, transfers at contact guard assistance. Will need shower chair and grab bars. Comment: no skin breakdown noted. Functional Improvement: Patient presents w/ good attitude and work ehtic toward therapy. Therapist has seen patient for PT services the last two treatment days, and patient has improved w/ R LE step quality during this time. Patient will continue to improve abilities, and work toward goals. Summary: Patient's care plan and ferry terminal agent goals have been reviewed and revised as necessary. Please see the Rehabilitation Signature page for all necessary signatures.
[2021-09-17] MEDS: DOCUSATE NA/SENNA CONC 1 TAB PO PRN (19:36)
[2021-09-17] MEDS: CLOPIDOGREL 75 MG TABLET PO SCH (19:37)
[2021-09-17] MEDS: CYCLOBENZAPRINE 10 MG TAB PO SCH (19:37)
[2021-09-17] MEDS: AMITRIPTYLINE 25 MG TAB PO SCH (19:38)
[2021-09-17] MEDS: ATORVASTATIN 20 MG TAB PO SCH (19:38)
[2021-09-17] MEDS: LOSARTAN POTASSIUM 50 MG TABLET PO SCH (19:38)
[2021-09-18] MEDS: PANTOPRAZOLE 40MG TABLET PO SCH (05:20)
[2021-09-18] MEDS ORDERED: VITAMIN D 5,000 UNIT CAP PO SCH (08:00)
[2021-09-18] MEDS: CRANBERRY FRUIT EXTRACT 400 MG CAP PO SCH ×2 (08:17→19:33)
[2021-09-18] MEDS: FOLIC ACID 1 MG TABLET PO SCH (08:17)
[2021-09-18] MEDS: SMZ./TMP. 800/160 MG TABLET PO SCH ×2 (08:17→19:33)
[2021-09-18] MEDS: AMLODIPINE 5 MG TAB PO SCH (08:17)
[2021-09-18] MEDS: ASPIRIN 81 MG CHEWABLE TABLET PO SCH (08:17)
[2021-09-18] MEDS: CYCLOBENZAPRINE 10 MG TAB PO SCH (19:32)
[2021-09-18] MEDS: AMITRIPTYLINE 25 MG TAB PO SCH (19:33)
[2021-09-18] MEDS: CLOPIDOGREL 75 MG TABLET PO SCH (19:33)
[2021-09-18] MEDS: ATORVASTATIN 20 MG TAB PO SCH (19:33)
[2021-09-18] MEDS: LOSARTAN POTASSIUM 50 MG TABLET PO SCH (19:34)
[2021-09-19] MEDS: PANTOPRAZOLE 40MG TABLET PO SCH (05:18)
[2021-09-19] MEDS: FOLIC ACID 1 MG TABLET PO SCH (08:25)
[2021-09-19] MEDS: ASPIRIN 81 MG CHEWABLE TABLET PO SCH (08:25)
[2021-09-19] MEDS: AMLODIPINE 5 MG TAB PO SCH (08:25)
[2021-09-19] MEDS: SMZ./TMP. 800/160 MG TABLET PO SCH ×2 (08:29→19:33)
[2021-09-19] MEDS: CRANBERRY FRUIT EXTRACT 400 MG CAP PO SCH ×2 (08:29→19:33)
[2021-09-19] MEDS: DOCUSATE NA/SENNA CONC 1 TAB PO PRN (19:31)
[2021-09-19] MEDS: CYCLOBENZAPRINE 10 MG TAB PO SCH (19:31)
[2021-09-19] MEDS: ATORVASTATIN 20 MG TAB PO SCH (19:31)
[2021-09-19] MEDS: LOSARTAN POTASSIUM 50 MG TABLET PO SCH (19:32)
[2021-09-19] MEDS: AMITRIPTYLINE 25 MG TAB PO SCH (19:32)
[2021-09-19] MEDS: CLOPIDOGREL 75 MG TABLET PO SCH (19:33)
[2021-09-20] MEDS: PANTOPRAZOLE 40MG TABLET PO SCH (05:30)
[2021-09-20] MEDS: FOLIC ACID 1 MG TABLET PO SCH (08:14)
[2021-09-20] MEDS: ASPIRIN 81 MG CHEWABLE TABLET PO SCH (08:14)
[2021-09-20] MEDS: CRANBERRY FRUIT EXTRACT 400 MG CAP PO SCH ×2 (08:14→19:57)
[2021-09-20] MEDS: AMLODIPINE 5 MG TAB PO SCH (08:14)
[2021-09-20] MEDS: SMZ./TMP. 800/160 MG TABLET PO SCH ×2 (08:14→19:57)
--- NOTE | 2021-09-20 17:01 | R.PN ---
PROGRESS NOTES ENCOUNTER DATE AND TIME: 09/20/2021 16:57 (CDT) NAME RAMSES POON DATE OF : 1960 DATE OF ADMISSION: 09/13/2021 22:43 (PATTERN DRAFTER) ACUTE CVACHIEF COMPLAINT: Right sided weakness, dysphagia, dysarthria SUBJECTIVE: Pt denied any depression. Pt denied any Shortness of Breath. WBC 9.2, Hgb 11.4, prealbumin 15.9, UA: esterase 2+, RBC loaded, bacteria > 50. Klebsiella Pneumoniae sensitive to Bactrin. Will give Bactrim DS bid for 5 days. Ambulated 1500' with standby assistance using a rolling walker. Self-propelled wheelchair 200' with s tandby assistance. Up and down 12 steps with standby assistance. Ultra sound of the right groin shows no fluid collection. VITAL SIGNS Temperature: 97.9 F SBP/DBP: 140/68 Pulse: 90 Resp: 15 MEDICATION ALLERGIES: CODEINE ENVIRONMENTAL ALLERGIES: - Substance Allergies None Known - Other Allergies None Known NURSING: - Shower allowing shower - Bladder care per protocol - Skin care per protocol PRECAUTIONS: - Weight Bearing Precaution WBAT right LE - Fall Precaution Bed alarm TABS alarm Wheel chair alarm ACTIVITIES OOB only with supervision THERAPIES: - Dietary and Nutrition Adequate Nutrition. Nutritional Education. Nutritional Supplements. Evaluate and Treat. - Occupational Therapy Cognitive Retraining. Patient needs Occupational Therapy for a daily minimum of 1.5 hours at least 5 out of 7 days, to improve Activities of Daily Living, including: Eating, Grooming, Bathing, Dressing, Toileting, Toilet Transfers, Community Reintegration, Higher functional activities, Adaptive Equipme nt, Splinting, Household Tasks, and Other activities as determined. Evaluate and Treat. Patient/Famil y Education. Safety Awareness. Adaptive Equipment. Transfer Training. Household Tasks. - Speech Therapy Cognitive Training. Evaluate and Treat. Expressive Language Skills. Memory Strategies. Patient needs Speech Therapy for a daily minimum of 1.5 hours at least 5 out of 7 days, to improve: Swallowing, Cog nition, Language Skills, and Compensatory Strategies. Receptive Language Skills. Speech Intelligibili ty Training. - Physical Therapy Patient needs Physical Therapy for a daily minimum of 1.5 hours at least 5 out of 7 days, to improve: Mobility, Strengthening, Transfers, Stretching, ROM, Endurance, Ability to manage stairs, Gait, and Balance. Evaluate and Treat. Mobility Training. Safety Awareness. Gait Training. Balance Training. Tr ansfer Training. Patient/Family Education. PHYSICAL EXAM - Gen Alert and awake Lying in bed No apparent distress Oriented to: person, time, and place - Skin No skin breakdown. Normacephalic - Eyes No abnormalities - ENMT No abnormalities - Neck No abnormalities - CVS RRR - Chest No abnormalities - Abd Soft - GI Non distended Deferred - No abnormalities - Ext No significant edema - MSK 4+/5 weakness in right upper and lower extremities - Neuro 4/5 strength right upper and lower extremities. - Psych No abnormalities ASSESSMENT: Pt. is a 61 yo Right-handed female.On 09/09/2021 Pt. presented to [facility] with sudden onset of right-side weakness.On 09/09/2021 she was admitted to [facility] with diagnosi s ACUTE CVA.Her impairment category is Stroke 01 - Right Body (Left Brain) (01.2).Pre-morbidly, Pt. was independent/mod-I in Locomotion, Safety Awareness, Social Cognition, and Balance; and she had goo d Transfers Control, Sphincter Control, Self-Care, Communication, and Endurance.Currently, she has de ficits of Locomotion, Social Cognition, Safety Awareness, Balance, Transfers Control, Sphincter Contr ol, Self-Care, Communication, and Endurance.Pt. is now referred to [facility] for acute in-patient rehabilitation in order to maximize patient's functional independence in activit ies of daily living, strength, ROM, and mobility.- Rehab Goal Patient has realistic goal of being discharged at assistance level 7-Ind to reside at Home with Fami ly/Relatives. MDM/PLAN: - Physical Therapy Gait dysfunction - to improve, our physical therapists will perform initial evaluation of pt's statu s upon admission and devise an individualized program for Gait Training, and Wheel Chair mobility Inability to transfer - to improve, our physical therapists will perform initial evaluation of pt's status upon admission and devise an individualized program for Bed mobility Need for home safety evaluation - to improve, our physical therapists will perform initial evaluatio n of pt's status upon admission and devise an individualized program for Home Evaluation Need in caregiver upon discharge - to improve, our physical therapists will perform initial evaluati on of pt's status upon admission and devise an individualized program for Caregiver Training New precaution - to improve, our physical therapists will perform initial evaluation of pt's status upon admission and devise an individualized program for Patient precaution education Edema - to improve, our physical therapists will perform initial evaluation of pt's status upon admi ssion and devise an individualized program for Elevation Training, and Lymphedema Therapy Poor balance - to improve, our physical therapists will perform initial evaluation of pt's status up on admission and devise an individualized program for Balance Training Poor endurance - to improve, our physical therapists will perform initial evaluation of pt's status upon admission and devise an individualized program for Endurance Training Weakness - to improve, our physical therapists will perform initial evaluation of pt's status upon a dmission and devise an individualized program for Aquatic Therapy, Neuromuscular Reeducation, and Str engthening Achieving independence - to improve, our physical therapists will perform initial evaluation of pt's status upon admission and devise an individualized program for Community Reintegration Activities - Occupational Therapy ADL deficits - to improve, our occupation therapists will perform initial evaluation of pt's status upon admission and devise an individualized program for Bathing, Bed mobility, Community Reintegratio n, Cooking, Dressing, Eating, Fine Motor Skills, Grooming, Homemaking, Kitchen Mobility, Laundry, Pat ient Education, Safety Awareness, Splinting - Positioning, Transfers(Toilet, Tub, Shower), and Wheel Chair Management Cognitive deficits - to improve, our occupation therapists will perform initial evaluation of pt's s tatus upon admission and devise an individualized program for Cognition - orientation Need for child care center administrator - to improve, our occupation therapists will perform initial evaluation of pt's status upon admission and devise an individualized program for Caregiver Training Weakness - to improve, our occupation therapists will perform initial evaluation of pt's status upon admission and devise an individualized program for Aquatic Therapy, Balance, Endurance, UE ROM, and UE strengthening - Other See attached MAR (Medication Administration Record) - Diet Type Continue Regular - Diet - Liquid Texture Continue Regular - Tube Feed Continue N/A - Bladder care per protocol - Weight Bearing Precaution WBAT right LE - Fall Precaution Bed alarm TABS alarm Wheel chair alarm - Skin care per protocol - Diet - Solid Texture Continue Regular - Shower allowing shower for Dementia, TBI, Stroke, or others FUNCTIONAL STATUS: UPDATED AT WEEKLY TEAM CONFERENCE - Bladder Same accident frequency: 7-Ind - No accidents in the past 7 days - Bowel Same accident frequency: 7-Ind - No accidents in the past 7 days - Walking Same score based on distance walked: 0(N/A) Same score based on distance walked: 3(>=150ft) - Wheelchair Same score based on distance traveled: 0(N/A) FUNCTIONAL STATUS: - Self-Care A. Eating sup B. Grooming sup C. Bathing Adri D. Dressing - Upper sup E. Dressing - Lower Adri F. Toileting Adri - Sphincter Control G. Bladder control H. Bowel control - Transfers Control I. Bed/Chair/Wheelchair Adri J. Toilet Adri K. Tub/Shower modA - Locomotion L. Walk/Wheelchair (B) modA M. Stairs modA - Communication N. Comprehension (B) Jeremy O. Expression (B) Jeremy - Social Cognition P. Social Interaction Jeremy Q. Problem Solving sup R. Memory Jeremy - Endurance Good - Balance Fair - Safety Awareness Fair QI SCORES: - Self-Care A. Eating 03-Partial/moderate assistance B. Oral hygiene 03-Partial/moderate assistance C. Toileting hygiene 03-Partial/moderate assistance E. Shower/bathe self 03-Partial/moderate assistance F. Upper body dressing 03-Partial/moderate assistance G. Lower body dressing 03-Partial/moderate assistance H. Putting on/taking off footwear 03-Partial/moderate assistance - Mobility A. Roll left and right 03-Partial/moderate assistance B. Sit to lying 03-Partial/moderate assistance C. Lying to sitting on side of bed 03-Partial/moderate assistance D. Sit to stand 03-Partial/moderate assistance E. Chair/[id number] transfer 03-Partial/moderate assistance F. Toilet transfer 03-Partial/moderate assistance G. Car transfer 88-Not attempted due to medical condition or safety concerns I. Walk 10 feet 03-Partial/moderate assistance J. Walk 50 feet with two turns 88-Not attempted due to medical condition or safety concerns K. Walk 150 feet 88-Not attempted due to medical condition or safety concerns L. Walking 10 feet on uneven surfaces 88-Not attempted due to medical condition or safety concerns M. 1 step (curb) 88-Not attempted due to medical condition or safety concerns N. 4 steps 88-Not attempted due to medical condition or safety concerns O. 12 steps 88-Not attempted due to medical condition or safety concerns P. Picking up object 88-Not attempted due to medical condition or safety concerns R. Wheel 50 feet with two turns 88-Not attempted due to medical condition or safety concerns S. Wheel 150 feet 88-Not attempted due to medical condition or safety concerns - Bladder and Bowel Bladder continence Bowel continence - Endurance Fair - Balance Fair - Safety Awareness Fair CURRENT [facility]. DEFICITS: Self-Care, Mobility, Endurance, Balance, and Safety Awareness SIGNATURE PANEL: (CDT)
[2021-09-20] MEDS ORDERED: BISACODYL 10 MG RECTAL SUPP PR PRN (17:36)
[2021-09-20] MEDS: CLOPIDOGREL 75 MG TABLET PO SCH (19:59)
[2021-09-20] MEDS: CYCLOBENZAPRINE 10 MG TAB PO SCH (20:00)
[2021-09-20] MEDS: DOCUSATE NA/SENNA CONC 1 TAB PO PRN (20:00)
[2021-09-20] MEDS: AMITRIPTYLINE 25 MG TAB PO SCH (20:00)
[2021-09-20] MEDS: LOSARTAN POTASSIUM 50 MG TABLET PO SCH (20:01)
[2021-09-20] MEDS: ATORVASTATIN 20 MG TAB PO SCH (20:01)
[2021-09-21] MEDS: PANTOPRAZOLE 40MG TABLET PO SCH (05:28)
[2021-09-21] MEDS: FOLIC ACID 1 MG TABLET PO SCH (07:54)
[2021-09-21] MEDS: SMZ./TMP. 800/160 MG TABLET PO SCH (07:54)
[2021-09-21] MEDS: CRANBERRY FRUIT EXTRACT 400 MG CAP PO SCH ×2 (07:54→19:43)
[2021-09-21] MEDS: AMLODIPINE 5 MG TAB PO SCH (07:54)
[2021-09-21] MEDS: ASPIRIN 81 MG CHEWABLE TABLET PO SCH (07:54)
[2021-09-21] MEDS: NICOTINE 7 MG/PAT TD SCH (16:16)
[2021-09-21] MEDS ORDERED: MAGNESIUM HYDROXIDE 8% 30 ML PO PRN (16:19)
--- NOTE | 2021-09-21 17:49 | R.PN ---
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 Pt denied any Shortness of Breath. WBC 9.2, Hgb 11.4, prealbumin 15.9, UA: esterase 2+, RBC loaded, bacteria > 50. Klebsiella Pneumoniae sensitive to Bactrin. Will give Bactrim DS bid for 5 days. Ambulated 750' with standby assistance using a rolling walker. Self-propelled wheelchair 250' with st andby assistance. Up and down 12 steps with standby assistance. Ultra sound of the right groin shows no fluid collection. VITAL SIGNS Temperature: 98.1 F SBP/DBP: 115/70 Pulse: 85 Resp: 16 MEDICATION ALLERGIES: CODEINE ENVIRONMENTAL ALLERGIES: - Substance Allergies None Known - Other Allergies None Known NURSING: - Shower allowing shower - Bladder care per protocol - Skin care per protocol PRECAUTIONS: - Weight Bearing Precaution WBAT right LE - Fall Precaution Bed alarm TABS alarm Wheel chair alarm ACTIVITIES OOB only with supervision THERAPIES: - Dietary and Nutrition Adequate Nutrition. Nutritional Education. Nutritional Supplements. Evaluate and Treat. - Occupational Therapy Cognitive Retraining. Patient needs Occupational Therapy for a daily minimum of 1.5 hours at least 5 out of 7 days, to improve Activities of Daily Living, including: Eating, Grooming, Bathing, Dressing, Toileting, Toilet Transfers, Community Reintegration, Higher functional activities, Adaptive Equipme nt, Splinting, Household Tasks, and Other activities as determined. Evaluate and Treat. Patient/Famil y Education. Safety Awareness. Adaptive Equipment. Transfer Training. Household Tasks. - Speech Therapy Cognitive Training. Evaluate and Treat. Expressive Language Skills. Memory Strategies. Patient needs Speech Therapy for a daily minimum of 1.5 hours at least 5 out of 7 days, to improve: Swallowing, Cog nition, Language Skills, and Compensatory Strategies. Receptive Language Skills. Speech Intelligibili ty Training. - Physical Therapy Patient needs Physical Therapy for a daily minimum of 1.5 hours at least 5 out of 7 days, to improve: Mobility, Strengthening, Transfers, Stretching, ROM, Endurance, Ability to manage stairs, Gait, and Balance. Evaluate and Treat. Mobility Training. Safety Awareness. Gait Training. Balance Training. Tr ansfer Training. Patient/Family Education. PHYSICAL EXAM - Gen Alert and awake Lying in bed No apparent distress Oriented to: person, time, and place - Skin No skin breakdown. Normacephalic - Eyes No abnormalities - ENMT No abnormalities - Neck No abnormalities - CVS RRR - Chest No abnormalities - Abd Soft - GI Non distended Deferred - No abnormalities - Ext No significant edema - MSK 4+/5 weakness in right upper and lower extremities - Neuro 4/5 strength right upper and lower extremities. - Psych No abnormalities ASSESSMENT: Pt. is a 61 yo Right-handed female.On 09/09/[address] [facility] with sudden onset of right-side weakness.On 09/09/2021 she was admitted to [facility] with diagnosi s ACUTE CVA.Her impairment category is Stroke 01 - Right Body (Left Brain) (01.2).Pre-morbidly, Pt. was independent/mod-I in Locomotion, Safety Awareness, Social Cognition, and Balance; and she had goo d Transfers Control, Sphincter Control, Self-Care, Communication, and Endurance.Currently, she has de ficits of Locomotion, Social Cognition, Safety Awareness, Balance, Transfers Control, Sphincter Contr ol, Self-Care, Communication, and Endurance.Pt. is now referred to [facility] for acute in-patient rehabilitation in order to maximize patient's functional independence in activit ies of daily living, strength, ROM, and mobility.- Rehab Goal Patient has realistic goal of being discharged at assistance level 7-Ind to reside at Home with Fami ly/Relatives. MDM/PLAN: - Physical Therapy Gait dysfunction - to improve, our physical therapists will perform initial evaluation of pt's statu s upon admission and devise an individualized program for Gait Training, and Wheel Chair mobility Inability to transfer - to improve, our physical therapists will perform initial evaluation of pt's status upon admission and devise an individualized program for Bed mobility Need for home safety evaluation - to improve, our physical therapists will perform initial evaluatio n of pt's status upon admission and devise an individualized program for Home Evaluation Need in caregiver upon discharge - to improve, our physical therapists will perform initial evaluati on of pt's status upon admission and devise an individualized program for Caregiver Training New precaution - to improve, our physical therapists will perform initial evaluation of pt's status upon admission and devise an individualized program for Patient precaution education Edema - to improve, our physical therapists will perform initial evaluation of pt's status upon admi ssion and devise an individualized program for Elevation Training, and Lymphedema Therapy Poor balance - to improve, our physical therapists will perform initial evaluation of pt's status up on admission and devise an individualized program for Balance Training Poor endurance - to improve, our physical therapists will perform initial evaluation of pt's status upon admission and devise an individualized program for Endurance Training Weakness - to improve, our physical therapists will perform initial evaluation of pt's status upon a dmission and devise an individualized program for Aquatic Therapy, Neuromuscular Reeducation, and Str engthening Achieving independence - to improve, our physical therapists will perform initial evaluation of pt's status upon admission and devise an individualized program for Community Reintegration Activities - Occupational Therapy ADL deficits - to improve, our occupation therapists will perform initial evaluation of pt's status upon admission and devise an individualized program for Bathing, Bed mobility, Community Reintegratio n, Cooking, Dressing, Eating, Fine Motor Skills, Grooming, Homemaking, Kitchen Mobility, Laundry, Pat ient Education, Safety Awareness, Splinting - Positioning, Transfers(Toilet, Tub, Shower), and Wheel Chair Management Cognitive deficits - to improve, our occupation therapists will perform initial evaluation of pt's s tatus upon admission and devise an individualized program for Cognition - orientation Need for healthcare project manager - to improve, our occupation therapists will perform initial evaluation of pt's status upon admission and devise an individualized program for Caregiver Training Weakness - to improve, our occupation therapists will perform initial evaluation of pt's status upon admission and devise an individualized program for Aquatic Therapy, Balance, Endurance, UE ROM, and UE strengthening - Other See attached MAR (Medication Administration Record) - Diet Type Continue Regular - Diet - Liquid Texture Continue Regular - Tube Feed Continue N/A - Bladder care per protocol - Weight Bearing Precaution WBAT right LE - Fall Precaution Bed alarm TABS alarm Wheel chair alarm - Skin care per protocol - Diet - Solid Texture Continue Regular - Shower allowing shower for Dementia, TBI, Stroke, or others FUNCTIONAL STATUS: UPDATED AT WEEKLY TEAM CONFERENCE - Bladder Same accident frequency: 7-Ind - No accidents in the past 7 days - Bowel Same accident frequency: 7-Ind - No accidents in the past 7 days - Walking Same score based on distance walked: 0(N/A) Same score based on distance walked: 3(>=150ft) - Wheelchair Same score based on distance traveled: 0(N/A) FUNCTIONAL STATUS: - Self-Care A. Eating sup B. Grooming sup C. Bathing Adri D. Dressing - Upper sup E. Dressing - Lower Adri F. Toileting Adri - Sphincter Control G. Bladder control H. Bowel control - Transfers Control I. Bed/Chair/Wheelchair Adri J. Toilet Adri K. Tub/Shower modA - Locomotion L. Walk/Wheelchair (B) modA M. Stairs modA - Communication N. Comprehension (B) Jeremy O. Expression (B) Jeremy - Social Cognition P. Social Interaction Jeremy Q. Problem Solving sup R. Memory Jeremy - Endurance Good - Balance Fair - Safety Awareness Fair QI SCORES: - Self-Care A. Eating 03-Partial/moderate assistance B. Oral hygiene 03-Partial/moderate assistance C. Toileting hygiene 03-Partial/moderate assistance E. Shower/bathe self 03-Partial/moderate assistance F. Upper body dressing 03-Partial/moderate assistance G. Lower body dressing 03-Partial/moderate assistance H. Putting on/taking off footwear 03-Partial/moderate assistance - Mobility A. Roll left and right 03-Partial/moderate assistance B. Sit to lying 03-Partial/moderate assistance C. Lying to sitting on side of bed 03-Partial/moderate assistance D. Sit to stand 03-Partial/moderate assistance E. Chair/[id number] transfer 03-Partial/moderate assistance F. Toilet transfer 03-Partial/moderate assistance G. Car transfer 88-Not attempted due to medical condition or safety concerns I. Walk 10 feet 03-Partial/moderate assistance J. Walk 50 feet with two turns 88-Not attempted due to medical condition or safety concerns K. Walk 150 feet 88-Not attempted due to medical condition or safety concerns L. Walking 10 feet on uneven surfaces 88-Not attempted due to medical condition or safety concerns M. 1 step (curb) 88-Not attempted due to medical condition or safety concerns N. 4 steps 88-Not attempted due to medical condition or safety concerns O. 12 steps 88-Not attempted due to medical condition or safety concerns P. Picking up object 88-Not attempted due to medical condition or safety concerns R. Wheel 50 feet with two turns 88-Not attempted due to medical condition or safety concerns S. Wheel 150 feet 88-Not attempted due to medical condition or safety concerns - Bladder and Bowel Bladder continence Bowel continence - Endurance Fair - Balance Fair - Safety Awareness Fair [facility] DEFICITS: Self-Care, Mobility, Endurance, Balance, and Safety Awareness SIGNATURE PANEL: (CDT)
[2021-09-21] MEDS: CYCLOBENZAPRINE 10 MG TAB PO SCH (19:42)
[2021-09-21] MEDS: ATORVASTATIN 20 MG TAB PO SCH (19:43)
[2021-09-21] MEDS: LOSARTAN POTASSIUM 50 MG TABLET PO SCH (19:43)
[2021-09-21] MEDS: DOCUSATE NA/SENNA CONC 1 TAB PO SCH (19:43)
[2021-09-21] MEDS: CLOPIDOGREL 75 MG TABLET PO SCH (19:44)
[2021-09-21] MEDS: AMITRIPTYLINE 25 MG TAB PO SCH (19:44)
[2021-09-22] MEDS: PANTOPRAZOLE 40MG TABLET PO SCH (07:25)
[2021-09-22] MEDS: ASPIRIN 81 MG CHEWABLE TABLET PO SCH (08:08)
[2021-09-22] MEDS: FOLIC ACID 1 MG TABLET PO SCH (08:08)
[2021-09-22] MEDS: AMLODIPINE 5 MG TAB PO SCH (08:08)
[2021-09-22] MEDS: CRANBERRY FRUIT EXTRACT 400 MG CAP PO SCH ×2 (08:08→19:58)
[2021-09-22] MEDS: NICOTINE 7 MG/PAT TD SCH (11:42)
--- NOTE | 2021-09-22 16:09 | R.PN ---
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 Pt denied any Shortness of Breath. WBC 9.2, Hgb 11.4, prealbumin 15.9, UA: esterase 2+, RBC loaded, bacteria > 50. Klebsiella Pneumoniae sensitive to Bactrin. Will give Bactrim DS bid for 5 days. Ambulated 750' with standby assistance using a rolling walker. Self-propelled wheelchair 250' with st andby assistance. Ultra sound of the right groin shows no fluid collection. VITAL SIGNS Temperature: 97 F SBP/DBP: 115/58 Pulse: 78 Resp: 16 MEDICATION ALLERGIES: CODEINE ENVIRONMENTAL ALLERGIES: - Substance Allergies None Known - Other Allergies None Known NURSING: - Shower allowing shower - Bladder care per protocol - Skin care per protocol PRECAUTIONS: - Weight Bearing Precaution WBAT right LE - Fall Precaution Bed alarm TABS alarm Wheel chair alarm ACTIVITIES OOB only with supervision THERAPIES: - Dietary and Nutrition Adequate Nutrition. Nutritional Education. Nutritional Supplements. Evaluate and Treat. - Occupational Therapy Cognitive Retraining. Patient needs Occupational Therapy for a daily minimum of 1.5 hours at least 5 out of 7 days, to improve Activities of Daily Living, including: Eating, Grooming, Bathing, Dressing, Toileting, Toilet Transfers, Community Reintegration, Higher functional activities, Adaptive Equipme nt, Splinting, Household Tasks, and Other activities as determined. Evaluate and Treat. Patient/Famil y Education. Safety Awareness. Adaptive Equipment. Transfer Training. Household Tasks. - Speech Therapy Cognitive Training. Evaluate and Treat. Expressive Language Skills. Memory Strategies. Patient needs Speech Therapy for a daily minimum of 1.5 hours at least 5 out of 7 days, to improve: Swallowing, Cog nition, Language Skills, and Compensatory Strategies. Receptive Language Skills. Speech Intelligibili ty Training. - Physical Therapy Patient needs Physical Therapy for a daily minimum of 1.5 hours at least 5 out of 7 days, to improve: Mobility, Strengthening, Transfers, Stretching, ROM, Endurance, Ability to manage stairs, Gait, and Balance. Evaluate and Treat. Mobility Training. Safety Awareness. Gait Training. Balance Training. Tr ansfer Training. Patient/Family Education. PHYSICAL EXAM - Gen Alert and awake Lying in bed No apparent distress Oriented to: person, time, and place - Skin No skin breakdown. Normacephalic - Eyes No abnormalities - ENMT No abnormalities - Neck No abnormalities - CVS RRR - Chest No abnormalities - Abd Soft - GI Non distended Deferred - No abnormalities - Ext No significant edema - MSK 4+/5 weakness in right upper and lower extremities - Neuro 4/5 strength right upper and lower extremities. - Psych No abnormalities ASSESSMENT: Pt. is a 61 yo Right-handed female.On 09/09/2021 Pt. presented to [facility] with sudden onset of right-side weakness.On 09/09/2021 she was admitted to [facility] with diagnosi s ACUTE CVA.Her impairment category is Stroke 01 - Right Body (Left Brain) (01.2).Pre-morbidly, Pt. was independent/mod-I in Locomotion, Safety Awareness, Social Cognition, and Balance; and she had goo d Transfers Control, Sphincter Control, Self-Care, Communication, and Endurance.Currently, she has de ficits of Locomotion, Social Cognition, Safety Awareness, Balance, Transfers Control, Sphincter Contr ol, Self-Care, Communication, and Endurance.Pt. is now referred to [facility] for acute in-patient rehabilitation in order to maximize patient's functional independence in activit ies of daily living, strength, ROM, and mobility.- Rehab Goal Patient has realistic goal of being discharged at assistance level 7-Ind to reside at Home with Fami ly/Relatives. MDM/PLAN: - Physical Therapy Gait dysfunction - to improve, our physical therapists will perform initial evaluation of pt's statu s upon admission and devise an individualized program for Gait Training, and Wheel Chair mobility Inability to transfer - to improve, our physical therapists will perform initial evaluation of pt's status upon admission and devise an individualized program for Bed mobility Need for home safety evaluation - to improve, our physical therapists will perform initial evaluatio n of pt's status upon admission and devise an individualized program for Home Evaluation Need in caregiver upon discharge - to improve, our physical therapists will perform initial evaluati on of pt's status upon admission and devise an individualized program for Caregiver Training New precaution - to improve, our physical therapists will perform initial evaluation of pt's status upon admission and devise an individualized program for Patient precaution education Edema - to improve, our physical therapists will perform initial evaluation of pt's status upon admi ssion and devise an individualized program for Elevation Training, and Lymphedema Therapy Poor balance - to improve, our physical therapists will perform initial evaluation of pt's status up on admission and devise an individualized program for Balance Training Poor endurance - to improve, our physical therapists will perform initial evaluation of pt's status upon admission and devise an individualized program for Endurance Training Weakness - to improve, our physical therapists will perform initial evaluation of pt's status upon a dmission and devise an individualized program for Aquatic Therapy, Neuromuscular Reeducation, and Str engthening Achieving independence - to improve, our physical therapists will perform initial evaluation of pt's status upon admission and devise an individualized program for Community Reintegration Activities - Occupational Therapy ADL deficits - to improve, our occupation therapists will perform initial evaluation of pt's status upon admission and devise an individualized program for Bathing, Bed mobility, Community Reintegratio n, Cooking, Dressing, Eating, Fine Motor Skills, Grooming, Homemaking, Kitchen Mobility, Laundry, Pat ient Education, Safety Awareness, Splinting - Positioning, Transfers(Toilet, Tub, Shower), and Wheel Chair Management Cognitive deficits - to improve, our occupation therapists will perform initial evaluation of pt's s tatus upon admission and devise an individualized program for Cognition - orientation Need for healthcare recruiter - to improve, our occupation therapists will perform initial evaluation of pt's status upon admission and devise an individualized program for Caregiver Training Weakness - to improve, our occupation therapists will perform initial evaluation of pt's status upon admission and devise an individualized program for Aquatic Therapy, Balance, Endurance, UE ROM, and UE strengthening - Other See attached MAR (Medication Administration Record) - Diet Type Continue Regular - Diet - Liquid Texture Continue Regular - Tube Feed Continue N/A - Bladder care per protocol - Weight Bearing Precaution WBAT right LE - Fall Precaution Bed alarm TABS alarm Wheel chair alarm - Skin care per protocol - Diet - Solid Texture Continue Regular - Shower allowing shower for Dementia, TBI, Stroke, or others FUNCTIONAL STATUS: UPDATED AT WEEKLY TEAM CONFERENCE - Bladder Same accident frequency: 7-Ind - No accidents in the past 7 days - Bowel Same accident frequency: 7-Ind - No accidents in the past 7 days - Walking Same score based on distance walked: 0(N/A) Same score based on distance walked: 3(>=150ft) - Wheelchair Same score based on distance traveled: 0(N/A) FUNCTIONAL STATUS: - Self-Care A. Eating sup B. Grooming sup C. Bathing Adri D. Dressing - Upper sup E. Dressing - Lower Adri F. Toileting Adri - Sphincter Control G. Bladder control H. Bowel control - Transfers Control I. Bed/Chair/Wheelchair Adri J. Toilet Adri K. Tub/Shower modA - Locomotion L. Walk/Wheelchair (B) modA M. Stairs modA - Communication N. Comprehension (B) Jeremy O. Expression (B) Jeremy - Social Cognition P. Social Interaction Jeremy Q. Problem Solving sup R. Memory Jeremy - Endurance Good - Balance Fair - Safety Awareness Fair QI SCORES: - Self-Care A. Eating 03-Partial/moderate assistance B. Oral hygiene 03-Partial/moderate assistance C. Toileting hygiene 03-Partial/moderate assistance E. Shower/bathe self 03-Partial/moderate assistance F. Upper body dressing 03-Partial/moderate assistance G. Lower body dressing 03-Partial/moderate assistance H. Putting on/taking off footwear 03-Partial/moderate assistance - Mobility A. Roll left and right 03-Partial/moderate assistance B. Sit to lying 03-Partial/moderate assistance C. Lying to sitting on side of bed 03-Partial/moderate assistance D. Sit to stand 03-Partial/moderate assistance E. Chair/wzv-es-gjxar transfer 03-Partial/moderate assistance F. Toilet transfer 03-Partial/moderate assistance G. Car transfer 88-Not attempted due to medical condition or safety concerns I. Walk 10 feet 03-Partial/moderate assistance J. Walk 50 feet with two turns 88-Not attempted due to medical condition or safety concerns K. Walk 150 feet 88-Not attempted due to medical condition or safety concerns L. Walking 10 feet on uneven surfaces 88-Not attempted due to medical condition or safety concerns M. 1 step (curb) 88-Not attempted due to medical condition or safety concerns N. 4 steps 88-Not attempted due to medical condition or safety concerns O. 12 steps 88-Not attempted due to medical condition or safety concerns P. Picking up object 88-Not attempted due to medical condition or safety concerns R. Wheel 50 feet with two turns 88-Not attempted due to medical condition or safety concerns S. Wheel 150 feet 88-Not attempted due to medical condition or safety concerns - Bladder and Bowel Bladder continence Bowel continence - Endurance Fair - Balance Fair - Safety Awareness Fair CURRENT [facility]. DEFICITS: Self-Care, Mobility, Endurance, Balance, and Safety Awareness SIGNATURE PANEL: (CDT)
[2021-09-22] MEDS: LOSARTAN POTASSIUM 50 MG TABLET PO SCH (19:57)
[2021-09-22] MEDS: AMITRIPTYLINE 25 MG TAB PO SCH (19:57)
[2021-09-22] MEDS: CYCLOBENZAPRINE 10 MG TAB PO SCH (19:58)
[2021-09-22] MEDS: DOCUSATE NA/SENNA CONC 1 TAB PO SCH (19:58)
[2021-09-22] MEDS: ATORVASTATIN 20 MG TAB PO SCH (19:58)
[2021-09-22] MEDS: CLOPIDOGREL 75 MG TABLET PO SCH (19:58)
[2021-09-23 06:09] LABS: Absolute Lymphocytes (CBC) 1.3 K/uL (0.7-4.9); Hematocrit 26.2 % (36.0-45.0); Lymphocytes % 21.8 % (15.3-44.8); MPV 7.2 fL (7.6-11.3); RBC Red Blood Cell Count 3.33 M/uL (3.86-4.86)
[2021-09-23 07:09] LABS: Albumin 3.1 g/dL (3.4-5.0); Magnesium 2.2 mg/dL (1.8-2.4); Potassium 4.4 mmol/L (3.5-5.1)
[2021-09-23 07:21] LABS: Anisocytosis 3+; Blood Morphology Comment NOTED (NOT SEEN); Platelet Estimate ADEQ; White Blood Cell Scan OK (OK)
[2021-09-23] MEDS: PANTOPRAZOLE 40MG TABLET PO SCH (07:21)
[2021-09-23] MEDS: NICOTINE 7 MG/PAT TD SCH (07:37)
[2021-09-23] MEDS: FOLIC ACID 1 MG TABLET PO SCH (08:28)
[2021-09-23] MEDS: CRANBERRY FRUIT EXTRACT 400 MG CAP PO SCH ×2 (08:28→19:38)
[2021-09-23] MEDS: ASPIRIN 81 MG CHEWABLE TABLET PO SCH (08:28)
[2021-09-23] MEDS: AMLODIPINE 5 MG TAB PO SCH (08:28)
[2021-09-23] MEDS: CYCLOBENZAPRINE 10 MG TAB PO SCH (19:36)
[2021-09-23] MEDS: DOCUSATE NA/SENNA CONC 1 TAB PO SCH (19:37)
[2021-09-23] MEDS: AMITRIPTYLINE 25 MG TAB PO SCH (19:37)
[2021-09-23] MEDS: LOSARTAN POTASSIUM 50 MG TABLET PO SCH (19:37)
[2021-09-23] MEDS: ATORVASTATIN 20 MG TAB PO SCH (19:38)
[2021-09-23] MEDS: CLOPIDOGREL 75 MG TABLET PO SCH (19:38)
[2021-09-24] MEDS: PANTOPRAZOLE 40MG TABLET PO SCH (07:14)
[2021-09-24 07:23] VITALS: BP 116/59; TEMP 97.2
[2021-09-24] MEDS ORDERED: FERROUS SULFATE 325 MG TAB PO SCH (08:00)
[2021-09-24] MEDS ORDERED: FE SULF/FA/VIT B COMP & C TAB PO SCH (08:00)
[2021-09-24] MEDS: ASPIRIN 81 MG CHEWABLE TABLET PO SCH (08:05)
[2021-09-24] MEDS: FOLIC ACID 1 MG TABLET PO SCH (08:05)
[2021-09-24] MEDS: CRANBERRY FRUIT EXTRACT 400 MG CAP PO SCH (08:05)
[2021-09-24] MEDS: AMLODIPINE 5 MG TAB PO SCH (08:05)
--- NOTE | 2021-09-24 10:00 | P.RH.PN ---
Estimated Length of Stay: 12 Expected Discharge Date: 09/24/21 Discharge Disposition Plan: Home Family Support: Yes Half-Way Goal: Mobility, Transfers, Self Care Vital Signs: Last Vital Signs Temp 97.2 F 09/24/21 07:00 Pulse 91 H 09/24/21 08:05 Resp 16 09/24/21 07:00 BP 116/59 L 09/24/21 08:05 Pulse Ox 99 09/24/21 07:00 Laboratory: Laboratory Last Values WBC 5.80 K/uL (4.3-10.9) D 09/23/21 05:44 RBC 3.33 M/uL (3.86-4.86) L D 09/23/21 05:44 Hgb 8.7 g/dL (12.0-15.0) L D 09/23/21 05:44 Hct 26.2 % (36.0-45.0) L D 09/23/21 05:44 MCV 78.7 fL (80-100) L 09/23/21 05:44 MCH 26.1 pg (27.0-35.0) L 09/23/21 05:44 MCHC 33.1 g/dL (32.0-36.0) 09/23/21 05:44 RDW 26.9 % (12.1-15.2) H D 09/23/21 05:44 Plt Count 213 K/uL (152-406) 09/23/21 05:44 MPV 7.2 fL (7.6-11.3) L 09/23/21 05:44 Neutrophils % 65.9 % (41.7-73.7) 09/23/21 05:44 Lymphocytes % 21.8 % (15.3-44.8) 09/23/21 05:44 Monocytes % 8.8 % (3.3-12.3) 09/23/21 05:44 Eosinophils % 2.2 % (0-4.4) 09/23/21 05:44 Basophils % 1.3 % (0-1.3) 09/23/21 05:44 Absolute Neutrophils 3.8 K/uL (1.8-8.0) 09/23/21 05:44 Absolute Lymphocytes 1.3 K/uL (0.7-4.9) 09/23/21 05:44 Absolute Monocytes 0.5 K/uL (0.1-1.3) 09/23/21 05:44 Absolute Eosinophils 0.1 K/uL (0-0.5) 09/23/21 05:44 Absolute Basophils 0.1 K/uL (0-0.5) 09/23/21 05:44 Platelet Estimate Adeq 09/23/21 05:44 Anisocytosis 3+ 09/23/21 05:44 Microcytosis 2+ 09/14/21 04:37 Schistocytes 2+ 09/14/21 04:37 Morphology Comment Noted (NOT SEEN) 09/23/21 05:44 Sodium 137 mmol/L (136-145) 09/23/21 05:44 Potassium 4.4 mmol/L (3.5-5.1) 09/23/21 05:44 Chloride 102 mmol/L (98-107) 09/23/21 05:44 Carbon Dioxide 29 mmol/L (21-32) 09/23/21 05:44 BUN 34 mg/dL (7-18) H D 09/23/21 05:44 Creatinine 1.32 mg/dL (0.55-1.3) H 09/23/21 05:44 Estimated GFR 41 mL/min (=/>90) L 09/23/21 05:44 Glucose 97 mg/dL (74-106) 09/23/21 05:44 Calcium 9.0 mg/dL (8.5-10.1) 09/23/21 05:44 Magnesium 2.2 mg/dL (1.8-2.4) 09/23/21 05:44 Albumin 3.1 g/dL (3.4-5.0) L 09/23/21 05:44 Prealbumin 33.0 mg/dL (20-40) 09/23/21 05:44 Urine Color Dk yellow (Yellow) 09/14/21 16:00 Urine Appearance Cloudy (Clear) 09/14/21 16:00 Urine pH 5.5 (5.0-7.0) 09/14/21 16:00 Ur Specific Elton 1.025 (1.005-1.030) 09/14/21 16:00 Glucose (UA)(Auto) Negative (Negative) 09/14/21 16:00 Urine Ketones Trace (Negative) H 09/14/21 16:00 Urine Blood 3+ (Negative) H 09/14/21 16:00 Urine Nitrite Negative (Negative) 09/14/21 16:00 Urine Bilirubin Negative (Negative) 09/14/21 16:00 Urine Urobilinogen 1.0 mg/dL (0.2-1.0) 09/14/21 16:00 Ur Leukocyte Esterase 2+ (Negative) H 09/14/21 16:00 Urine RBC Loaded /HPF (NONE SEEN) H 09/14/21 16:00 Urine WBC 20-50 /HPF (<5) H 09/14/21 16:00 Ur Squamous Epith Cells <5 /HPF (NONE SEEN) 09/14/21 16:00 Amorphous Sediment 1+ /HPF (NONE SEEN) 09/14/21 16:00 Urine Bacteria >50 /HPF (<20) H 09/14/21 16:00 Urine Culture Reflexed Not needed 09/14/21 16:00 Urine Total Protein 3+ (Negative) H 09/14/21 16:00 SARS-CoV-2 Rap RNA(RT-PCR) Negative (NEGATIVE) 09/20/21 05:32 Smear Scan Ok (OK) 09/23/21 05:44 Weight: 109 lb 11.2 oz Wound Present: No Closed Surgical Incision Present: No Negative Pressure Wound Therapy Present: No Physician Update: She did very well with all therapy. Bed mobility, transfers, ambulation, up and down steps with modified independence. She has a mild expressive aphasia. She will have outpatient speech therapy. She will discharge today. Comment: no skin breakdown noted. Functional Improvement: Patient has met all short-term and long-term goals at this time, w/ the exception of a car transfer. Patient will perform a simulated car transfer tomorrow, due to lack of automobile. Patient presents w/ good attitude toward therapy, work ethic, and safety awareness. Summary: Patient's care plan and intermediate manager goals have been reviewed and revised as necessary. Please see the Rehabilitation Signature page for all necessary signatures.
[2021-09-24] MEDS: NICOTINE 7 MG/PAT TD SCH (11:51)
--- NOTE | 2021-10-15 19:10 | R.PN ---
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 Pt denied any Shortness of Breath. VITAL SIGNS Temperature: 97.8 F SBP/DBP: 142/75 Pulse: 87 Resp: 16 MEDICATION ALLERGIES: CODEINE ENVIRONMENTAL ALLERGIES: - Substance Allergies None Known - Other Allergies None Known NURSING: - Shower allowing shower - Bladder care per protocol - Skin care per protocol PRECAUTIONS: - Weight Bearing Precaution WBAT right LE - Fall Precaution Bed alarm TABS alarm Wheel chair alarm ACTIVITIES OOB only with supervision THERAPIES: - Dietary and Nutrition Adequate Nutrition. Nutritional Education. Nutritional Supplements. Evaluate and Treat. - Occupational Therapy Cognitive Retraining. Patient needs Occupational Therapy for a daily minimum of 1.5 hours at least 5 out of 7 days, to improve Activities of Daily Living, including: Eating, Grooming, Bathing, Dressing, Toileting, Toilet Transfers, Community Reintegration, Higher functional activities, Adaptive Equipme nt, Splinting, Household Tasks, and Other activities as determined. Evaluate and Treat. Patient/Famil y Education. Safety Awareness. Adaptive Equipment. Transfer Training. Household Tasks. - Speech Therapy Cognitive Training. Evaluate and Treat. Expressive Language Skills. Memory Strategies. Patient needs Speech Therapy for a daily minimum of 1.5 hours at least 5 out of 7 days, to improve: Swallowing, Cog nition, Language Skills, and Compensatory Strategies. Receptive Language Skills. Speech Intelligibili ty Training. - Physical Therapy Patient needs Physical Therapy for a daily minimum of 1.5 hours at least 5 out of 7 days, to improve: Mobility, Strengthening, Transfers, Stretching, ROM, Endurance, Ability to manage stairs, Gait, and Balance. Evaluate and Treat. Mobility Training. Safety Awareness. Gait Training. Balance Training. Tr ansfer Training. Patient/Family Education. PHYSICAL EXAM - Gen Alert and awake Lying in bed No apparent distress Oriented to: person, time, and place - Skin No skin breakdown. Normacephalic - Eyes No abnormalities - ENMT No abnormalities - Neck No abnormalities - CVS RRR - Chest No abnormalities - Abd Soft - GI Non distended Deferred - No abnormalities - Ext No significant edema - MSK 4+/5 weakness in right upper and lower extremities - Neuro 4/5 strength right upper and lower extremities. - Psych No abnormalities ASSESSMENT: Pt. is a 61 yo Right-handed female.On 09/09/2021 Pt. presented to [facility] with sudden onset of right-side weakness.On 09/09/2021 she was admitted to [facility] with diagnosi s ACUTE CVA.Her impairment category is Stroke 01 - Right Body (Left Brain) (01.2).Pre-morbidly, Pt. was independent/mod-I in Locomotion, Safety Awareness, Social Cognition, and Balance; and she had goo d Transfers Control, Sphincter Control, Self-Care, Communication, and Endurance.Currently, she has de ficits of Locomotion, Social Cognition, Safety Awareness, Balance, Transfers Control, Sphincter Contr ol, Self-Care, Communication, and Endurance.Pt. is now referred to [facility] for acute in-patient rehabilitation in order to maximize patient's functional independence in activit ies of daily living, strength, ROM, and mobility.- Rehab Goal Patient has realistic goal of being discharged at assistance level 7-Ind to reside at Home with Fami ly/Relatives. MDM/PLAN: - Physical Therapy Gait dysfunction - to improve, our physical therapists will perform initial evaluation of pt's statu s upon admission and devise an individualized program for Gait Training, and Wheel Chair mobility Inability to transfer - to improve, our physical therapists will perform initial evaluation of pt's status upon admission and devise an individualized program for Bed mobility Need for home safety evaluation - to improve, our physical therapists will perform initial evaluatio n of pt's status upon admission and devise an individualized program for Home Evaluation Need in caregiver upon discharge - to improve, our physical therapists will perform initial evaluati on of pt's status upon admission and devise an individualized program for Caregiver Training New precaution - to improve, our physical therapists will perform initial evaluation of pt's status upon admission and devise an individualized program for Patient precaution education Edema - to improve, our physical therapists will perform initial evaluation of pt's status upon admis west and devise an individualized program for Elevation Training, and Lymphedema Therapy Poor balance - to improve, our physical therapists will perform initial evaluation of pt's status up on admission and devise an individualized program for Balance Training Poor endurance - to improve, our physical therapists will perform initial evaluation of pt's status upon admission and devise an individualized program for Endurance Training Weakness - to improve, our physical therapists will perform initial evaluation of pt's status upon a dmission and devise an individualized program for Aquatic Therapy, Neuromuscular Reeducation, and Str engthening Achieving independence - to improve, our physical therapists will perform initial evaluation of pt's status upon admission and devise an individualized program for Community Reintegration Activities - Occupational Therapy ADL deficits - to improve, our occupation therapists will perform initial evaluation of pt's status upon admission and devise an individualized program for Bathing, Bed mobility, Community Reintegratio n, Cooking, Dressing, Eating, Fine Motor Skills, Grooming, Homemaking, Kitchen Mobility, Laundry, Pat ient Education, Safety Awareness, Splinting - Positioning, Transfers(Toilet, Tub, Shower), and Wheel Chair Management Cognitive deficits - to improve, our occupation therapists will perform initial evaluation of pt's s tatus upon admission and devise an individualized program for Cognition - orientation Need for wound care coordinator - to improve, our occupation therapists will perform initial evaluation of pt's status upon admission and devise an individualized program for Caregiver Training Weakness - to improve, our occupation therapists will perform initial evaluation of pt's status upon admission and devise an individualized program for Aquatic Therapy, Balance, Endurance, UE ROM, and UE strengthening - Other See attached MAR (Medication Administration Record) - Diet Type Continue Regular - Diet - Liquid Texture Continue Regular - Tube Feed Continue N/A - Bladder care per protocol - Weight Bearing Precaution WBAT right LE - Fall Precaution Bed alarm TABS alarm Wheel chair alarm - Skin care per protocol - Diet - Solid Texture Continue Regular - Shower allowing shower for Dementia, TBI, Stroke, or others FUNCTIONAL STATUS: UPDATED AT WEEKLY TEAM CONFERENCE - Bladder Same accident frequency: 7-Ind - No accidents in the past 7 days - Bowel Same accident frequency: 7-Ind - No accidents in the past 7 days - Walking Same score based on distance walked: 0(N/A) Same score based on distance walked: 3(>=150ft) - Wheelchair Same score based on distance traveled: 0(N/A) FUNCTIONAL STATUS: - Self-Care A. Eating sup B. Grooming sup C. Bathing Adri D. Dressing - Upper Adri E. Dressing - Lower modA F. Toileting Adri - Sphincter Control G. Bladder control Adri H. Bowel control Jeremy - Transfers Control I. Bed/Chair/Wheelchair Adri J. Toilet Ind K. Tub/Shower modA - Locomotion L. Walk/Wheelchair (B) Adri M. Stairs modA - Communication N. Comprehension (B) Jeremy O. Expression (B) Jeremy - Social Cognition P. Social Interaction Ind Q. Problem Solving Ind R. Memory Jeremy - Endurance Fair - Balance Fair - Safety Awareness Good QI SCORES: - Self-Care A. Eating 03-Partial/moderate assistance B. Oral hygiene 03-Partial/moderate assistance C. Toileting hygiene 03-Partial/moderate assistance E. Shower/bathe self 03-Partial/moderate assistance F. Upper body dressing 03-Partial/moderate assistance G. Lower body dressing 03-Partial/moderate assistance H. Putting on/taking off footwear 03-Partial/moderate assistance - Mobility A. Roll left and right 03-Partial/moderate assistance B. Sit to lying 03-Partial/moderate assistance C. Lying to sitting on side of bed 03-Partial/moderate assistance D. Sit to stand 03-Partial/moderate assistance E. Chair/geg-tb-ilwiu transfer 03-Partial/moderate assistance F. Toilet transfer 03-Partial/moderate assistance G. Car transfer 88-Not attempted due to medical condition or safety concerns I. Walk 10 feet 03-Partial/moderate assistance J. Walk 50 feet with two turns 88-Not attempted due to medical condition or safety concerns K. Walk 150 feet 88-Not attempted due to medical condition or safety concerns L. Walking 10 feet on uneven surfaces 88-Not attempted due to medical condition or safety concerns M. 1 step (curb) 88-Not attempted due to medical condition or safety concerns N. 4 steps 88-Not attempted due to medical condition or safety concerns O. 12 steps 88-Not attempted due to medical condition or safety concerns P. Picking up object 88-Not attempted due to medical condition or safety concerns R. Wheel 50 feet with two turns 88-Not attempted due to medical condition or safety concerns S. Wheel 150 feet 88-Not attempted due to medical condition or safety concerns - Bladder and Bowel Bladder continence Bowel continence - Endurance Fair - Balance Fair - Safety Awareness Fair CURRENT FUNC. DEFICITS: Self-Care, Mobility, Endurance, Balance, and Safety Awareness SIGNATURE PANEL: (CDT)
--- NOTE | 2021-10-15 19:12 | R.DS ---
DISCHARGE SUMMARY FACILITY [facility] MR# [id number] NAME RAMSES POON ADDRESS [id number] [place] [address] [address] [id number] PHONE DATE OF 1960 AGE 61 SSN# [id number] GENDER Female MARITAL STATUS ENCOUNTER PHYSICIAN Dr. Francis Holliday M.D. REFERRING DOCTOR [facility] REFERRING FACILITY [facility] DISCHARGE DIAGNOSIS: - Stroke 01 - Right Body (Left Brain) (01.2) ACUTE CVA. 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 NURSING: - Shower allowing shower - Bladder care per protocol - Skin care per protocol PRECAUTIONS: - Weight Bearing Precaution WBAT right LE - Fall Precaution Bed alarm TABS alarm Wheel chair alarm ACTIVITIES OOB only with supervision THERAPIES: - Dietary and Nutrition Adequate Nutrition Nutritional Education Nutritional Supplements Evaluate and Treat - Occupational Therapy Cognitive Retraining Patient needs Occupational Therapy for a daily minimum of 1.5 hours at least 5 out of 7 days, to impr ove Activities of Daily Living, including: Eating, Grooming, Bathing, Dressing, Toileting, Toilet Tra nsfers, Community Reintegration, Higher functional activities, Adaptive Equipment, Splinting, Househo ld Tasks, and Other activities as determined Evaluate and Treat Patient/Family Education Safety Awareness Adaptive Equipment Transfer Training Household Tasks - Speech Therapy Cognitive Training Evaluate and Treat Expressive Language Skills Memory Strategies Patient needs Speech Therapy for a daily minimum of 1.5 hours at least 5 out of 7 days, to improve: S wallowing, Cognition, Language Skills, and Compensatory Strategies Receptive Language Skills Speech Intelligibility Training - Physical Therapy Patient needs Physical Therapy for a daily minimum of 1.5 hours at least 5 out of 7 days, to improve: Mobility, Strengthening, Transfers, Stretching, ROM, Endurance, Ability to manage stairs, Gait, and Balance Evaluate and Treat Mobility Training Safety Awareness Gait Training Balance Training Transfer Training Patient/Family Education HISTORY OF PRESENT ILLNESS: Pt. is a 61 yo Right-handed female.On 09/09/2021 Pt. presented to [facility] with sudden onset of right-side weakness.On 09/09/2021 she was admitted to [facility] with diagnosi s ACUTE CVA.Her impairment category is Stroke 01 - Right Body (Left Brain) (01.2).Pre-morbidly, Pt. was independent/mod-I in Locomotion, Safety Awareness, Social Cognition, and Balance; and she had goo d Transfers Control, Sphincter Control, Self-Care, Communication, and Endurance.Currently, she has de ficits of Locomotion, Social Cognition, Safety Awareness, Balance, Transfers Control, Sphincter Contr ol, Self-Care, Communication, and Endurance.Pt. is now referred to [facility] for acute in-patient rehabilitation in order to maximize patient's functional independence in activit ies of daily living, strength, ROM, and mobility.- Rehab Goal Patient has realistic goal of being discharged at assistance level 7-Ind to reside at Home with Fami ly/Relatives. DIET - LIQUID TEXTURE: On 09/13/2021 Pt was upgraded to Regular Diet - Liquid Texture. DIET - SOLID TEXTURE: On 09/13/2021 Pt was upgraded to Regular Diet - Solid Texture. DIET TYPE: On 09/13/2021 Pt was upgraded to Regular Diet Type. FALL PRECAUTION: On 09/13/2021 the following precautions were added for the patient: Fall Precaution - Wheel chair ala rm, Fall Precaution - TABS alarm, and Fall Precaution - Bed alarm. On 09/15/2021 the following precautions were added for the patient: Fall Precaution - Bed alarm, Fal l Precaution - TABS alarm, and Fall Precaution - Wheel chair alarm. The following precautions were removed for the patient: Fall Precaution - Bed alarm, Fall Precaution - TABS alarm, Fall Precaution - Wheel chair alarm, Fall Precaution - Bed alarm, Fall Precaution - T ABS alarm, and Fall Precaution - Wheel chair alarm. On 09/13/2021 the following precautions were added for the patient: Weight Bearing Precaution - WBAT right LE. On 09/14/2021 the following precautions were added for the patient: Weight Bearing Precaution - WBAT right LE. TUBE FEED: On 09/13/2021 Pt was changed to N/A Tube Feed. WEIGHT BEARING PRECAUTION: DISCHARGE PHYSICAL EXAM - Gen Alert and awake Lying in bed No apparent distress Oriented to: person, time, and place - Skin No skin breakdown. Normacephalic - Eyes No abnormalities - ENMT No abnormalities - Neck No abnormalities - CVS RRR - Chest No abnormalities - Abd Soft - GI Non distended Deferred - No abnormalities - Ext No significant edema - MSK 4+/5 weakness in right upper and lower extremities - Neuro 4/5 strength right upper and lower extremities. - Psych No abnormalities FUNCTIONAL STATUS: - Self-Care A. Eating 6-Jeremy B. Grooming 6-Jeremy C. Bathing 6-Jeremy D. Dressing - Upper 6-Jeremy E. Dressing - Lower 6-Jeremy F. Toileting 6-Jeremy - Sphincter Control G. Bladder control 6-Jeremy H. Bowel control 6-Jeremy - Transfers Control I. Bed/Chair/Wheelchair 6-Jeremy J. Toilet 6-Jeremy K. Tub/Shower 6-Jeremy - Locomotion L. Walk/Wheelchair (B) 6-Jeremy M. Stairs 6-Jeremy - Communication N. Comprehension (B) 6-Jeremy O. Expression (B) 6-Jeremy - Social Cognition P. Social Interaction 6-Jeremy Q. Problem Solving 6-Jeremy R. Memory 6-Jeremy - Endurance Good - Balance Good - Safety Awareness Good QI SCORES: - Self-Care A. Eating 03-Partial/moderate assistance B. Oral hygiene 03-Partial/moderate assistance C. Toileting hygiene 03-Partial/moderate assistance E. Shower/bathe self 03-Partial/moderate assistance F. Upper body dressing 03-Partial/moderate assistance G. Lower body dressing 03-Partial/moderate assistance H. Putting on/taking off footwear 03-Partial/moderate assistance - Mobility A. Roll left and right 03-Partial/moderate assistance B. Sit to lying 03-Partial/moderate assistance C. Lying to sitting on side of bed 03-Partial/moderate assistance D. Sit to stand 03-Partial/moderate assistance E. Chair/myf-iz-zuvqc transfer 03-Partial/moderate assistance F. Toilet transfer 03-Partial/moderate assistance G. Car transfer 88-Not attempted due to medical condition or safety concerns I. Walk 10 feet 03-Partial/moderate assistance J. Walk 50 feet with two turns 88-Not attempted due to medical condition or safety concerns K. Walk 150 feet 88-Not attempted due to medical condition or safety concerns L. Walking 10 feet on uneven surfaces 88-Not attempted due to medical condition or safety concerns M. 1 step (curb) 88-Not attempted due to medical condition or safety concerns N. 4 steps 88-Not attempted due to medical condition or safety concerns O. 12 steps 88-Not attempted due to medical condition or safety concerns P. Picking up object 88-Not attempted due to medical condition or safety concerns R. Wheel 50 feet with two turns 88-Not attempted due to medical condition or safety concerns S. Wheel 150 feet 88-Not attempted due to medical condition or safety concerns - Bladder and Bowel Bladder continence Bowel continence - Endurance Fair - Balance Fair - Safety Awareness Fair DISCHARGE INSTRUCTIONS: - N/A Aspirin 81 mg daily. DISCHARGE PLAN, FOLLOW UP CARE PROVISIONS: - Estimated Length of Stay (days) 17. - Consensus on plan Discharge plan has been discussed with primary caregiver. Patient/Family is in agreement with the bandar n. Primary caregiver is in agreement with the plan. - Patient/Family Goals Return home independently. - Planned Living Setting Upon Discharge Home, to live with Family/Relatives. Transitional Living. SIGNATURE PANEL: (CDT)
== END 2021-09-24 13:05 | disposition home health service (06) | DRG 57 ==
LOC: 5TH 22:43
PROVIDERS: ADMIT Psychiatry & Neurology Neurology with Special Qualifications in Child Neurology; ATTEND Psychiatry & Neurology Neurology with Special Qualifications in Child Neurology
DX: I69.351 Hemiplegia and hemiparesis following cerebral infarction affecting right dominant side (principal); I69.391 Dysphagia following cerebral infarction; R13.10 Dysphagia, unspecified; I69.322 Dysarthria following cerebral infarction; I69.920 Aphasia following unspecified cerebrovascular disease; I10 Essential (primary) hypertension; F17.210 Nicotine dependence, cigarettes, uncomplicated; Z20.822 Contact with and (suspected) exposure to COVID-19; N30.90 Cystitis, unspecified without hematuria
CPT/HCPCS: 36415; 76881; 80048; 81001; 82040; 83735; 84134; 85025; 87077; 87086; 87088; 87186; 92507; 92523; 97110; 97116; 97161; 97165; 97530; 97542; J7030; U0003

== ENCOUNTER 2021-10-14 08:25 | Day surgery (SDC) | payer OTHER, SELFPAY ==
[2021-10-14 08:41] LABS: Absolute Lymphocytes (CBC) 0.8 K/uL (0.7-4.9); Hematocrit 27.1 % (36.0-45.0); Lymphocytes % 10.8 % (15.3-44.8); MPV 7.3 fL (7.6-11.3); RBC Red Blood Cell Count 3.04 M/uL (3.86-4.86)
[2021-10-14 08:42] LABS: Protime INR 1.1
[2021-10-14] MEDS ORDERED: Ringers Lactate 1,000 ML IV ONE (08:43)
[2021-10-14 09:04] VITALS: TEMP 97.2; O2SAT 100
[2021-10-14] MEDS ORDERED: propofoL 200 MG/20 ML VIAL IV ONE ×2 (11:41→11:42)
[2021-10-14] MEDS ORDERED: LIDOCAINE 1% MPF 5 ML VIAL ONE (11:42)
[2021-10-14] MEDS ORDERED: EPINEPHRINE/PF 1 MG/ML AMP ONE (12:05)
--- NOTE | 2021-10-14 13:04 | ENDO RPT ---
[address], [address] EGD PROCEDURE REPORT EXAM DATE: 10/14/2021 PATIENT NAME: Alyssa Britton MR#: [id number] BIRTHDATE: 1960 ATTENDING: Aidan Penaloza DR STATUS: outpatient ORDER MANAGER: Sue Sykes RN, Karla SAUNDERS, and Jorge Riggins [facility] INDICATIONS: The patient is a 61 yr old Female here for an EGD due to anemia PROCEDURE PERFORMED: EGD with biopsy for H. pylori MEDICATIONS: Per Anesthesia. TOPICAL ANESTHETIC: none CONSENT: The patient understands the risks and benefits of the procedure and understands that these risks include, but are not limited to: sedation, allergic reaction, infection, perforation and/or bleeding. Alternative means of evaluation and treatment include, among others: physical exam, x-rays, and/or surgical intervention. The patient elects to proceed with this endoscopic procedure. DESCRIPTION OF PROCEDURE: During intra-op preparation period all mechanical medical equipment was checked for proper function. Hand hygiene and appropriate measures for infection prevention was taken. Procedure, possible complications, and alternatives including but not limited to the possibility of bleeding, perforation, tear, infection, sepsis, need for surgery, need for blood transfusion, and anesthesia related complications were explained to the patient. After the risks, benefits and alternatives of the procedure were thoroughly explained, Informed consent was verified, confirmed and timeout was successfully executed by the treatment team. The patient was placed in the left lateral position. The patient was anesthetized with topical anesthesia. Through the anesthetized oropharyngeal area, the scope was passed without any difficulty. The [id number] ([id number]) endoscope was introduced through the mouth and advanced to the second portion of the duodenum. Retroflexed views revealed no abnormalities. The gastroscope was then slowly withdrawn and removed. Multiple erosions were found in the bulb and descending duodenum. A biopsy for H. pylori was taken. Multiple biopsies were obtained and sent to pathology. Mild gastritis was found in the body and the antrum of the stomach. Biopsy performed with cold forcepts A biopsy for H. pylori was taken. The esophagus and gastroesophageal junction were completely normal in appearance. With standard forceps, a biopsy was obtained and sent to pathology. ADVERSE EVENTS: There were no complications. IMPRESSIONS: 1. Multiple erosions were found in the bulb and descending duodenum 2. Mild gastritis was found in the body and the antrum of the stomach 3. Normal esophagus RECOMMENDATIONS: 1. acid suppression therapy 2. anti-reflux regimen 3. await biopsy results 4. avoid NSAIDS 5. follow-up of helicobacter pylori status, treat if indicated REPEAT EXAM: for Capsule Endoscopy. Aidan Penaloza DR eSigned: Aidan Penaloza DR 10/14/2021 1:03 PM cc: CPT CODES: ICD9 CODES: PATIENT NAME: Alyssa Britton MR#: [id number]
--- NOTE | 2021-10-14 13:08 | ENDO RPT ---
[address], [address] COLONOSCOPY PROCEDURE REPORT EXAM DATE: 10/14/2021 PATIENT NAME: Alyssa Britton MR #: [id number] BIRTHDATE: 1960 ATTENDING: Aidan Penaloza DR STATUS: outpatient COMPLIANCE FIELD TECHNICIAN: Sue Sykes RN, Karla SAUNDERS, and Jorge Riggins [facility] INDICATIONS: The patient is a 61 yr old Female here for a colonoscopy due to anemia and hemoccult positive stools PROCEDURE PERFORMED: Colonoscopy with biopsy - cold polypectomy MEDICATIONS: Per Anesthesia. ESTIMATED BLOOD LOSS: None CONSENT: The patient understands the risks and benefits of the procedure and understands that these risks include, but are not limited to: sedation, allergic reaction, infection, perforation and/or bleeding. Alternative means of evaluation and treatment include, among others: physical exam, x-rays, and/or surgical intervention. The patient elects to proceed with this endoscopic procedure. DESCRIPTION OF PROCEDURE: During intra-op preparation period all mechanical medical equipment was checked for proper function. Hand hygiene and appropriate measures for infection prevention was taken. Procedure, possible complications, alternatives including, but not limited to possibility of bleeding, perforation, tear, infection, sepsis, need for surgery, need for blood transfusion, were explained to the patient. After the risks, benefits and alternatives of the procedure were thoroughly explained, Informed consent was verified, confirmed and timeout was successfully executed by the treatment team. The patient was placed in the left lateral position. A digital rectal exam was performed and revealed internal hemorrhoids. After appropriate level of anesthesia, the scope was passed. The [id number] ([id number]) endoscope was introduced through the anus and advanced to the terminal ileum which was intubated for a short distance. The quality of the prep was poor. The instrument was then slowly withdrawn as the colon was fully examined. Scope withdrawal time was 15 minutes. COLON FINDINGS: Mild diverticulosis was noted throughout the entire examined colon. No bleeding was noted from the diverticulosis. A smooth sessile polyp ranging between 3-5mm in size with a friable surface was found in the ascending colon. A polypectomy was performed with cold forceps. The resection was complete, the polyp tissue was completely retrieved and sent to histology. Large internal hemorrhoids were found. The colon mucosa was otherwise normal. Retroflexed views revealed no abnormalities. The scope was then completely withdrawn from the patient and the procedure terminated. ADVERSE EVENTS: There were no complications. IMPRESSIONS: 1. Mild diverticulosis was noted throughout the entire examined colon 2. Sessile polyp ranging between 3-5mm in size was found in the ascending colon; polypectomy was performed in a piecemeal fashion with cold forceps 3. Large internal hemorrhoids 4. The colon mucosa was otherwise normal RECOMMENDATIONS: 1. avoid NSAIDS 2. await biopsy results 3. fiber rich diet 4. follow-up: office 2 week(s) 5. Monitor for any evidence of rectal bleeding. 6. pillcam / capsule endoscopy 7. increase dietary water 8. hemorrhoidal hygiene RECALL: for Colonoscopy, pending biopsy results. Aidan Penaloza DR eSigned: Aidan Penaloza DR 10/14/2021 1:08 PM cc: CPT CODES: ICD9 CODES: PATIENT NAME: Alyssa Britton MR#: [id number]
[2021-10-14 13:24] VITALS: BP 133/87
[2021-10-14 13:54] LABS: Anisocytosis 2+; Blood Morphology Comment NOTED (NOT SEEN); Platelet Estimate ADEQ; White Blood Cell Scan OK (OK)
== END 2021-10-14 13:30 | disposition home or self-care (01) ==
LOC: OR 08:25
PROVIDERS: ATTEND Surgery
PROC: 0DB68ZX Excision of Stomach, Via Natural or Artificial Opening Endoscopic, Diagnostic (ICD-10-PCS; 2021-10-14)
PROC: 0DB48ZX Excision of Esophagogastric Junction, Via Natural or Artificial Opening Endoscopic, Diagnostic (ICD-10-PCS; 2021-10-14)
PROC: 0DBK8ZX Excision of Ascending Colon, Via Natural or Artificial Opening Endoscopic, Diagnostic (ICD-10-PCS; principal; 2021-10-14 12:00)
PROC: 0DB98ZX Excision of Duodenum, Via Natural or Artificial Opening Endoscopic, Diagnostic (ICD-10-PCS; 2021-10-14 12:00)
DX: K92.2 Gastrointestinal hemorrhage, unspecified (principal); D64.9 Anemia, unspecified; K29.80 Duodenitis without bleeding; K29.50 Unspecified chronic gastritis without bleeding; D12.2 Benign neoplasm of ascending colon; K64.8 Other hemorrhoids; K57.30 Diverticulosis of large intestine without perforation or abscess without bleeding; Z20.822 Contact with and (suspected) exposure to COVID-19; K26.9 Duodenal ulcer, unspecified as acute or chronic, without hemorrhage or perforation
CPT/HCPCS: 36415; 80048; 85025; 85610; 85730; 86850; 86900; 86901; 88305; 88312; J0171; J2704; J7120; U0003

== ENCOUNTER 2021-11-04 10:27 | Emergency (ER) | payer SELFPAY ==
--- OUTSIDE RECORDS SUMMARY | 2021-11-04 10:31 | XMS REPORT | Continuity of Care Document ---
:1960 Author Organization [facility] Address [address] [place] [address] Dr. Dhaliwal [address] [place] [address] Care Team Providers Name Role Phone LUIS ARMANDO Attending Clinician Unavailable WINNIE Attending Clinician Unavailable Gina Awad Attending Clinician [phone] Netta Penaloza Attending Clinician [phone] RICK Attending Clinician Unavailable [email or web address] Attending Clinician Unavailable MIA Attending Clinician Unavailable ERIKA_Edy Admitting Clinician Unavailable luis armando Admitting Clinician Unavailable MIA Admitting Clinician Unavailable Payers Payer Name Policy Type Policy Number Effective Date Expiration Date [facility] ADMINISTRATIVE [id number] [facility] ([facility]) [place]: [facility] [id number] 2017 2021 ([facility]) 00:00:00 00:00:00 [facility] [id number] [facility]: [facility] [id number] 2017 00:00:00 Problems This patient has no known problems. Allergies, Adverse Reactions, Alerts This patient has no known allergies or adverse reactions. Medications This patient has no known medications. Procedures This patient has no known procedures. Encounters Start End Encounter Admission Attending Care Care Encounter Source Date/Time Date/Time Type Type Clinicians Facility Department ID 2021-10-13 2021-10-13 Outpatient KEFFER_A [facility] [id number] [place] 05:54:00 05:54:00 [facility] 2021-09-29 2021-09-29 Outpatient THEEFFER_A [facility] [id number] [place] 11:11:00 11:11:00 323 [facility] 2021-09-29 2021-09-29 Outpatient MIGUEL ZHOU [facility] [id number] [place] 00:00:00 00:00:00 [facility]AMS [address] 2021-09-29 2021-09-29 Outpatient WINNIE [facility] [id number] [address] [place] [address] 00:00:00 00:00:00 WILLIAMS [address] 2021-09-29 2021-09-29 Outpatient [facility] [id number] [place] 00:00:00 00:00:[address] 2021-09-27 2021-09-27 Outpatient KEFFER_A [facility] [id number] [place] 04:06:00 04:06:00 [facility] 2021-09-27 2021-09-27 Outpatient Rozina Awad [facility] [id number] 00:00:00 00:00:00 Gina [id number] 2021-09-07 2021-09-07 Outpatient KEFFER_A [facility] [id number] [place] 09:30:00 09:30:00 301 [facility] 2021-09-07 2021-09-07 Outpatient Ca [facility] [id number] 00:00:00 00:00:00 Aidan [id number] [place] [id number] 2021-09-06 2021-09-06 Outpatient KEJONAS_A [facility] [id number] [place] 12:46:00 12:46:00 228 [facility] 2021-09-06 2021-09-06 Outpatient Rozina Awad [facility] [id number] 00:00:00 00:00:00 Gina [id number] 2021-08-26 2021-08-26 Outpatient KEFFER_A [facility] [id number] [place] 06:20:00 06:20:00 217 [facility] 2021-08-26 2021-08-26 Outpatient Rozina Awad [facility] [id number] 00:00:00 00:00:00 Gina [id number] 2021-08-09 2021-08-09 Outpatient KEFFER_A [facility] [id number] [place] 10:03:00 10:03:00 131 [facility] 2021-07-30 2021-07-30 Outpatient [facility]FFER_A [facility] [id number] [place] 05:21:00 05:21:00 121 [facility] 2021-06-22 2021-06-22 Outpatient KEFFER_A [facility] [id number] [place] 04:51:00 04:51:00 214 [facility] 2021-06-22 2021-06-22 Outpatient Rozina Awad [facility] [id number] 00:00:00 00:00:00 Gina [id number] 2021-04-14 2021-04-14 Outpatient KEFFER_A [facility] [id number] [place] 08:23:00 08:23:00 006 [facility] 2021-04-13 2021-04-13 Outpatient KEFFER_A [facility] [id number] [place] 06:34:00 06:34:00 005 [facility] 2021-04-13 2021-04-13 Outpatient Rozina Awad [facility] [id number] 00:00:00 00:00:00 Gina [id number] 2021-01-28 2021-01-28 Outpatient CHICO CABRERA [facility] [id number] [place] 00:00:00 00:00:[address] 2020-12-24 2020-12-24 Outpatient CHICO CABRERA [facility] [id number] [place] 00:00:00 00:00:[address] 2020-11-26 2020-11-26 Outpatient [facility]FFER[facility]A [facility] [id number] [place] 06:25:00 06:25:00 520 [facility] 2020-11-19 2020-11-19 Outpatient KEFFER_A [facility] [id number] [place] 09:31:00 09:31:00 513 [facility] 2020-11-19 2020-11-19 Outpatient Ca [facility] [id number] 00:00:00 00:00:00 Aidan [id number] [place] [id number] 2020-10-29 2020-10-29 Outpatient CHICO CABRERA [facility] [id number] [place] 00:00:00 00:00:[address] 2020-10-28 2020-10-28 Outpatient CHICO CABERRA [facility] [id number] [place] 00:00:00 00:00:[address] 2020-10-28 2020-10-28 Outpatient CHICO CABRERA [facility] [id number] [place] 00:00:00 00:00:[address] 2020-10-28 2020-10-28 Outpatient CHICO CABRERA [facility] [id number] [place] 00:00:00 00:00:[address] 2020-10-15 2020-10-15 Outpatient KEFFER_A [facility] [id number] [place] 01:02:00 01:02:00 408 [facility] 2020-10-02 2020-10-02 Outpatient KEFFER_A [facility] [id number] [place] 03:57:00 03:57:00 326 [facility] 2020-09-08 2020-09-08 Outpatient KEFFER_A [facility] [id number] [place] 12:01:00 12:01:00 302 [facility] 2020-08-27 2020-08-27 Outpatient KEFFER_A [facility] [id number] [place] 01:02:00 01:02:00 218 [facility] 2020-08-20 2020-08-20 Outpatient KEFFER_A [facility] [id number] [place] 09:14:00 09:14:00 211 [facility] 2020-08-20 2020-08-20 Outpatient Ca [facility] [id number] 00:00:00 00:00:00 Aidan [id number] [place] [id number] 2020-08-05 2020-08-05 Outpatient KEFFER_A [facility] [id number] [place] 11:55:00 11:55:00 127 [facility] 2020-08-05 2020-08-05 Outpatient Rozina Awad [facility] [id number] 00:00:00 00:00:00 Gina [id number] 2020-08-03 2020-08-03 Outpatient KEFFER_A [facility] [id number] [place] 03:52:00 03:52:00 125 [facility] 2020-07-21 2020-07-21 Outpatient KEFFER_A [facility] [id number] [place] 09:57:00 09:57:00 112 [facility] 2020-07-21 2020-07-21 Outpatient Ca [facility] [id number] 00:00:00 00:00:00 Aidan [id number] [place] [id number] 2020-07-04 2020-07-04 Outpatient ERIKA_Edy [facility] [id number] [place] 01:01:00 01:01:00 226 [facility] 2020-06-16 2020-06-16 Outpatient Ca [facility] [id number] 00:00:00 00:00:00 Aidan [id number] [place] [id number] 2020-05-27 2020-05-27 Outpatient kejonas_edy [facility] [id number] [place] 02:34:00 02:34:00 [id number] 2020-02-11 2020-02-11 Outpatient EUSEBIA IN[facility]TE [facility] 109 - [place] 12:25:00 12:25:00 [facility] [id number] da [facility] 2019-09-03 2019-09-03 Outpatient REYNOLD CABRERAA [facility] [id number] [place] 00:00:00 00:00:[address] Results This patient has no known results.
[2021-11-04] MEDS ORDERED: NA CHLORIDE 0.9% 1,000 ML ONE (10:56)
[2021-11-04 11:08] LABS: Hematocrit 31.4 % (36.0-45.0); Lymphocytes % 13.7 % (15.3-44.8); MPV 7.2 fL (7.6-11.3); RBC Red Blood Cell Count 3.59 M/uL (3.86-4.86)
[2021-11-04 11:24] LABS: Albumin 3.6 g/dL (3.4-5.0); Bilirubin Total 0.1 mg/dL (0.2-1.0)
--- NOTE | 2021-11-04 12:38 | ER ---
Nurse's Notes [facility] Name: Alyssa Britton Age: 61 yrs Sex: Female : 1960 Arrival Date: 11/04/2021 Time: 10:30 Bed 25 Private MD: Rozina Awad Diagnosis: Dehydration Presentation: 11/04 10:50 Chief complaint: Patient states: N/V for 1 week. Feels weak, fatigued. Concerned about ll1 anemia. No fever. Coronavirus screen: Vaccine status: Patient reports being unvaccinated. Client denies travel out of the [place] in the last 14 days. At this time, the client does not indicate any symptoms associated with coronavirus-19. Ebola Screen: Patient denies travel to an Ebola-affected area in the 21 days before illness onset. Initial Sepsis Screen: Does the patient meet any 2 criteria? HR > 90 bpm. No. Patient's initial sepsis screen is negative. Does the patient have a suspected source of infection? Yes: Other: n/v. Risk Assessment: Do you want to hurt yourself or someone else? Patient reports no desire to harm self or others. Onset of symptoms was October 28, 2021. 10:50 Method Of Arrival: Ambulatory ll1 10:50 Acuity: CORNELL 3 ll1 Triage Assessment: 10:51 General: Appears uncomfortable, ill, Behavior is cooperative, appropriate for age. ll1 Pain: Denies pain. Neuro: Reports weakness. GI: Reports nausea, vomiting. Historical: - Allergies: 10:49 Clindamycin; ll1 10:49 Codeine; ll1 10:49 Amoxicillin; ll1 - PMHx: 10:49 Anemia; High Cholesterol; Hypertensive disorder; kidney disease; possible lung CA; ll1 stroke; - PSHx: 10:49 None; ll1 - Immunization history:: Client reports having NOT received the Covid vaccine. - Social history:: Smoking status: Patient/guardian denies using tobacco, Stopped _ months ago .8 Patient/guardian denies using alcohol, street drugs, The patient lives with family. - Family history:: not pertinent. Screenin:55 Abuse screen: Denies threats or abuse. Denies injuries from another. Nutritional ab2 screening: No deficits noted. Tuberculosis screening: No symptoms or risk factors identified. Fall Risk None identified. Assessment: 10:54 General: Appears in no apparent distress. uncomfortable, Behavior is calm, cooperative, ab2 appropriate for age. Pain: Complains of pain in generalized. Neuro: Level of Consciousness is awake, alert, obeys commands, Oriented to person, place, time, situation, Appropriate for age Head Rigger are equal bilaterally Moves all extremities. Gait is steady, Speech is normal, Facial symmetry appears normal. Cardiovascular: No deficits noted. Denies chest pain, shortness of breath, Heart tones S1 S2 present Patient's skin is warm and dry. Respiratory: Airway is patent Respiratory effort is even, unlabored, Respiratory pattern is regular, symmetrical. GI: Abdomen is round non-distended, Bowel sounds present X 4 quads. Reports lower abdominal pain, upper abdominal pain, intolerance of fluids, intolerance of food, nausea, vomiting. : No deficits noted. No signs and/or symptoms were reported regarding the genitourinary system. Derm: Skin is intact, Skin is pink, warm \T\ dry. 12:02 Reassessment: Patient appears in no apparent distress at this time. Pt sleeping ab2 comfortably at this time. at bedside. Fluid bolus completed, pt tolerated well. Vital Signs: 10:50 BP 132 / 78; Pulse 96; Resp 17; Temp 98.4; Pulse Ox 100% on R/A; Weight 46.72 kg; ll1 Height 5 ft. 1 in. (154.94 cm); Pain 0/10; 12:01 BP 150 / 71; Pulse 90; Resp 17; Pulse Ox 99% on R/A; ab2 13:09 BP 147 / 79; Pulse 81; Resp 17; Pulse Ox 99% on R/A; ab2 10:50 Body Mass Index 19.46 (46.72 kg, 154.94 cm) ll1 ED Course: 10:30 Patient arrived in ED. mr 10:30 Rozina Awad MD is Private Physician. mr 10:39 Arm band placed on Patient placed in an exam room, on a stretcher. ll1 10:42 Rani Dumont MD is Attending Physician. ma2 10:45 Wan Chavis is Primary Nurse. ab2 10:50 Inserted saline lock: 20 gauge in left antecubital area, using aseptic technique. Blood ab2 collected. 10:51 Triage completed. ll1 10:53 CBC with Diff Sent. ab2 10:53 CMP Sent. ab2 10:54 Lipase Sent. ab2 10:54 No provider procedures requiring assistance completed. ab2 10:55 Patient has correct armband on for positive identification. Bed in low position. Call ab2 light in reach. Side rails up X2. Adult w/ patient. 13:18 IV discontinued, intact, bleeding controlled, No redness/swelling at site. Pressure ab2 dressing applied. Administered Medications: 10:54 Drug: NS 0.9% 1000 ml Route: IV; Rate: 1 bolus; Site: left antecubital; ab2 12:03 Follow up: Response: No adverse reaction; IV Status: Completed infusion ab2 Outcome: 12:38 Discharge ordered by . ma2 13:18 Discharged to home ambulatory. ab2 13:18 Condition: good 13:18 Discharge instructions given to patient, family, Instructed on discharge instructions, follow up and referral plans. Demonstrated understanding of instructions, follow-up care. 13:18 Patient left the ED. ab2 Signatures: Meera Reyna Mohammad, MD MD ma2 Nir Bonds, ROSEANNA RN ll1 Wan Chavis ab2
--- NOTE | 2021-11-04 12:39 | EDPHYS ---
Physician Documentation [facility] Name: Alyssa Britton Age: 61 yrs Sex: Female : 1960 Arrival Date: 11/04/2021 Time: 10:30 Bed 25 Private MD: Rozina Awad ED Physician Rani Dumont HPI: 11/04 12:37 This 61 yrs old Female presents to ER via Ambulatory with complaints of Vomiting, ma2 Anemia. 12:37 Onset: The symptoms/episode began/occurred gradually, 1 day(s) ago. Associated signs ma2 and symptoms: Pertinent negatives: diarrhea, fever, GI bleeding. Severity of symptoms: At their worst the symptoms were mild in the emergency department the symptoms are unchanged. The patient has experienced similar episodes in the past. Historical: - Allergies: 10:49 Clindamycin; ll1 10:49 Codeine; ll1 10:49 Amoxicillin; ll1 - PMHx: 10:49 Anemia; High Cholesterol; Hypertensive disorder; kidney disease; possible lung CA; ll1 stroke; - PSHx: 10:49 None; ll1 - Immunization history:: Client reports having NOT received the Covid vaccine. - Social history:: Smoking status: Patient/guardian denies using tobacco, Stopped _ months ago .8 Patient/guardian denies using alcohol, street drugs, The patient lives with family. - Family history:: not pertinent. ROS: 12:37 Constitutional: Negative for fever, chills, and weight loss. ma2 12:37 All other systems are negative. Exam: 12:37 Constitutional: This is a well developed, well nourished patient who is awake, alert, ma2 and in no acute distress. Head/Face: Normocephalic, atraumatic. Eyes: Pupils equal round and reactive to light, extra-ocular motions intact. Lids and lashes normal. Conjunctiva and sclera are non-icteric and not injected. Cornea within normal limits. Periorbital areas with no swelling, redness, or edema. ENT: Nares patent. No nasal discharge, no septal abnormalities noted. Tympanic membranes are normal and external auditory canals are clear. Oropharynx with no redness, swelling, or masses, exudates, or evidence of obstruction, uvula midline. Mucous membranes moist. Neck: Trachea midline, no thyromegaly or masses palpated, and no cervical lymphadenopathy. Supple, full range of motion without nuchal rigidity, or vertebral point tenderness. No Meningismus. Chest/axilla: Normal chest wall appearance and motion. Nontender with no deformity. No lesions are appreciated. Cardiovascular: Regular rate and rhythm with a normal S1 and S2. No gallops, murmurs, or rubs. Normal PMI, no JVD. No pulse deficits. Respiratory: Lungs have equal breath sounds bilaterally, clear to auscultation and percussion. No rales, rhonchi or wheezes noted. No increased work of breathing, no retractions or nasal flaring. Abdomen/GI: Soft, non-tender, with normal bowel sounds. No distension or tympany. No guarding or rebound. No evidence of tenderness throughout. Skin: Warm, dry with normal turgor. Normal color with no rashes, no lesions, and no evidence of cellulitis. MS/ Extremity: Pulses equal, no cyanosis. Neurovascular intact. Full, normal range of motion. Neuro: Awake and alert, GCS 15, oriented to person, place, time, and situation. Cranial nerves II-XII grossly intact. Motor strength 5/5 in all extremities. Sensory grossly intact. Cerebellar exam normal. Normal gait. Vital Signs: 10:50 BP 132 / 78; Pulse 96; Resp 17; Temp 98.4; Pulse Ox 100% on R/A; Weight 46.72 kg; ll1 Height 5 ft. 1 in. (154.94 cm); Pain 0/10; 12:01 BP 150 / 71; Pulse 90; Resp 17; Pulse Ox 99% on R/A; ab2 13:09 BP 147 / 79; Pulse 81; Resp 17; Pulse Ox 99% on R/A; ab2 10:50 Body Mass Index 19.46 (46.72 kg, 154.94 cm) ll1 MDM: 12:37 Differential diagnosis: Nonspecific abd pain, gastritis, viral gastroenteritis, ma2 gastroenteritis. Data reviewed: vital signs, nurses notes, EMS record. Counseling: I had a detailed discussion with the patient and/or guardian regarding: the historical points, exam findings, and any diagnostic results supporting the discharge/admit diagnosis, the presence of at least one elevated blood pressure reading (>120/80) during this emergency department visit, the need for outpatient follow up. Response to treatment: the patient's symptoms have markedly improved after treatment. 12:38 Patient medically screened. dc2 11/04 10:42 Order name: CBC with Diff 2 11/04 10:42 Order name: CMP; Complete Time: 12:30 dc2 11/04 10:42 Order name: Lipase; Complete Time: 12:30 dc2 11/04 10:42 Order name: IV Saline Lock; Complete Time: 10:53 dc2 11/04 10:42 Order name: Labs collected and sent; Complete Time: 10:53 ma2 Administered Medications: 10:54 Drug: NS 0.9% 1000 ml Route: IV; Rate: 1 bolus; Site: left antecubital; ab2 12:03 Follow up: Response: No adverse reaction; IV Status: Completed infusion ab2 Disposition Summary: 11/04/21 12:38 Discharge Ordered Location: Home ma2 Condition: Stable ma2 Diagnosis - Dehydration ma2 Followup: ma2 - With: Private Physician - When: Tomorrow - Reason: If symptoms return, Continuance of care Discharge Instructions: - Discharge Summary Sheet ma2 - Dehydration, Adult ma2 Forms: - Medication Reconciliation Form ma2 - Thank You Letter ma2 - Antibiotic Education ma2 - Prescription Opioid Use ma2 Signatures: Dispatcher [employer] EDMS Rani Dumont MD MD ma2 Nir oBnds RN RN ll1 Wan Chavis ab2
[2021-11-04 13:57] VITALS: TEMP 98.4
[2021-11-04 13:58] VITALS: O2SAT 99
[2021-11-04 14:00] VITALS: BP 147/79
[2021-11-04 15:13] LABS: Anisocytosis 1+; Blood Morphology Comment NOTED (NOT SEEN); Platelet Estimate ADEQ; Polychromasia SLIGHT; White Blood Cell Scan OK (OK)
== END 2021-11-04 13:18 | disposition home or self-care (01) ==
LOC: ER 10:27
DX: E86.0 Dehydration (principal); I10 Essential (primary) hypertension; Z88.1 Allergy status to other antibiotic agents; Z88.3 Allergy status to other anti-infective agents; Z88.5 Allergy status to narcotic agent
CPT/HCPCS: 36415; 80053; 83690; 85025; 96360; 99283; J7030

== ENCOUNTER 2022-02-11 10:46 | Day surgery (SDC) | payer OTHER ==
[2022-02-11 11:00] LABS: Hematocrit 30.3 % (36.0-45.0); Lymphocytes % 14.7 % (15.3-44.8); MCV 84.8 fL (80-100); MPV 7.1 fL (7.6-11.3); RBC Red Blood Cell Count 3.57 M/uL (3.86-4.86)
[2022-02-11 11:12] LABS: SARS-CoV-2 Antigen Rapid Res Negative (Negative)
[2022-02-11] MEDS ORDERED: NA CHLORIDE 0.9% 1,000 ML ONE (11:46)
[2022-02-11 13:02] VITALS: BP 137/81; TEMP 97.9; O2SAT 100
== END 2022-02-11 12:39 | disposition home or self-care (01) ==
LOC: OR 10:46 → PRE 10:46 → OR 12:39
PROVIDERS: ATTEND Surgery
DX: E43 Unspecified severe protein-calorie malnutrition (principal); R63.0 Anorexia; K22.70 Barrett's esophagus without dysplasia; C34.90 Malignant neoplasm of unspecified part of unspecified bronchus or lung; D50.0 Iron deficiency anemia secondary to blood loss (chronic); Z53.09 Procedure and treatment not carried out because of other contraindication; Z20.822 Contact with and (suspected) exposure to COVID-19
CPT/HCPCS: 85025; 80048; 36415; 87811; J7030

== ENCOUNTER 2022-02-17 06:43 | Day surgery (SDC) | payer OTHER ==
[2022-02-17] MEDS ORDERED: Ringers Lactate 1,000 ML IV ONE (07:11)
[2022-02-17 07:23] LABS: SARS-CoV-2 Antigen Rapid Res Negative (Negative)
[2022-02-17] MEDS ORDERED: propofoL 200 MG/20 ML VIAL IV ONE (07:59)
[2022-02-17] MEDS ORDERED: LIDOCAINE 1% MPF 2 ML AMPULE ONE (07:59)
--- NOTE | 2022-02-17 08:29 | ENDO RPT ---
[address], [address] EGD WITH PEG PROCEDURE REPORT EXAM DATE: 02/17/2022 PATIENT NAME: Alyssa Britton V. MR #: [id number] BIRTHDATE: 1960 ATTENDING: Aidan Penaloza DR STATUS: outpatient MEDICAL RECORDS MANAGER: Monique Gold RN and Jorge Brandt [facility] INDICATIONS: The patient is a 61 yr old Female here for an EGD with PEG due to malnutrition PROCEDURE PERFORMED: EGD-PEG MEDICATIONS: Per Anesthesia. TOPICAL ANESTHETIC: none CONSENT: The patient understands the risks and benefits of the procedure and understands that these risks include, but are not limited to: sedation, allergic reaction, infection, perforation and/or bleeding. Alternative means of evaluation and treatment include, among others: physical exam, x-rays, and/or surgical intervention. The patient elects to proceed with this endoscopic procedure. DESCRIPTION OF PROCEDURE: During intra-op preparation period all mechanical medical equipment was checked for proper function. Hand hygiene and appropriate measures for infection prevention was taken. After the risks, benefits and alternatives of the procedure were thoroughly explained, Informed consent was verified, confirmed and timeout was successfully executed by the treatment team. The patient was anesthetized with topical anesthesia and the EG-[id number] ([id number]) endoscope was introduced through the mouth and advanced to the second portion of the duodenum. The instrument was slowly withdrawn as the mucosa was fully examined. The duodenal bulb was normal in appearance, as was the postbulbar duodenum. The stomach was then inflated with air, and by a combination of transillumination and manual palpation, the site for the gastrostomy tube placement was selected and marked on the anterior abdominal wall. The skin of the anterior abdomen was surgically prepped and draped with sterile towels. Utilizing strict sterile technique, the selected site was then anesthetized with 1% xylocaine by injection into the skin and subcutaneous tissue. A 1 cm incision was made through the skin and subcutaneous tissue, and the needle/cannula assembly was then passed through the abdominal wall and through the anterior wall of the stomach, maintaining visualization with the endoscope. A snare device previously placed through the instrument channel was then opened and placed around the cannula, the needle was removed, and the insertion wire was passed through the cannula and into the stomach lumen. The snare was then loosened from the cannula, and repositioned to snare the insertion wire. The snare was then pulled up to the endoscope distal tip, and the scope was then withdrawn bringing with it the snare and insertion wire. The insertion wire was then released from the snare, and then loop-attached to the PEG PULL gastrostomy tube. Using the pull technique, the G-tube was then pulled into place by traction on the insertion wire at the abdominal wall end. The G-tube insertion site was then cleansed once again, and the external bolster was placed over the tube to secure it to the abdominal wall. A sterile dressing was then applied, and the procedure terminated. Retroflexed views revealed no abnormalities. The gastroscope was then slowly withdrawn and removed. ADVERSE EVENT: There were no complications. IMPRESSIONS: Normal duodenum RECOMMENDATIONS: 1. begin feeding tomorrow 2. avoid NSAIDS 3. anti-reflux regimen 4. follow-up: office 1 week(s) 5. follow PEG suggestions REPEAT EXAM: Aidan Penaloza DR eSigned: Aidan Penaloza DR 02/17/2022 8:29 AM cc: CPT CODES: ICD9 CODES: PATIENT NAME: Alyssa Britton V. MR#: [id number]
[2022-02-17 10:40] VITALS: TEMP 97.6; O2SAT 98
[2022-02-17 10:41] VITALS: BP 148/64
== END 2022-02-17 09:15 | disposition home or self-care (01) ==
LOC: OR 06:43
PROVIDERS: ATTEND Surgery
PROC: 0DH63UZ Insertion of Feeding Device into Stomach, Percutaneous Approach (ICD-10-PCS; principal; 2022-02-17 08:00)
DX: E43 Unspecified severe protein-calorie malnutrition (principal); D50.0 Iron deficiency anemia secondary to blood loss (chronic); K22.70 Barrett's esophagus without dysplasia; C34.90 Malignant neoplasm of unspecified part of unspecified bronchus or lung; K63.5 Polyp of colon; Z20.822 Contact with and (suspected) exposure to COVID-19
CPT/HCPCS: 36415; 87811; 43246; J2704; J7120